=== PATIENT | female | born 1940 | race Caucasian/White ===

== ENCOUNTER 2017-05-19 20:07 | Emergency (ER) | payer MEDICARE, OTHER, SELFPAY ==
[2017-05-19 20:10] VITALS: BP 199/115; PULSE 98; RESP 20; TEMP 36.2; O2SAT 98; BMI 22.6
[2017-05-19 20:31] LABS: Bedside Glucose 149 mg/dL (70-110)
--- NOTE | 2017-05-19 20:56 | ED.VISSUMM ---
- ER Visit Summary Date of Service: 05/19/17 Chief Complaint: She believes she has a clot in her left index finger going up her left forearm History of Present Illness: The patient is a 76 F with history of dementia who was brought to the ER because she is insistent that she has a blood clot in her left index finger that is going up her forearm. She is uncertain how this occurred. She apparently lives alone. Daughter states she is within seconds away. Daughter states that she sets out her meds. Question the daughter regarding safety because she informed me that she was running around left the doors open etc. Patient is unreliable informant secondary to multi-infarct dementia. Physical Examination: Vital signs are remarkable for blood pressure of 119/115. Patient has no complaints. She is disoriented. This is normal. Daughter wishes no test to be done. She wishes for me to inform her mom she does not have a blood clot in her finger. Patient has a deep superficial burn to the left index finger. There is no evidence of infection. There is no lymphangitis. There is no epitrochlear or axillary lymphadenopathy. Axillary, median, radial and ulnar function intact. Test Results: None are indicated and none are wanted by daughter Emergency Department Course and Treatment: Wound dressing Treatment Plan: Appropriate home-going instructions Disposition: Discharged to home with daughter Impression: Partial thickness burn left index finger This note was generated with [employer] dictation software. It may contain incorrect words, spelling, and punctuation that were not noted in review of the chart prior to signing ED Disposition - Plan for ED Patient: Disposition: LEFT WITHOUT BEING SEEN Chief Complaint: Confusion Instructions: ED Burn Thermal D 1st 2nd Dressing Referrals: Sena Cheatham DO [Primary Care Provider] -
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
[2017-05-19 21:29] VITALS: BP 167/95; PULSE 73; RESP 16; O2SAT 99
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
== END 2017-05-19 21:27 | disposition left against medical advice (07) ==
PROVIDERS: Emergency Provider Emergency Medicine; Family Provider Family Medicine; PCP Family Medicine
DX: T23.022A Burn of unspecified degree of single left finger (nail) except thumb, initial encounter (principal); F03.90 Unspecified dementia, unspecified severity, without behavioral disturbance, psychotic disturbance, mood disturbance, and anxiety; I10 Essential (primary) hypertension; E11.9 Type 2 diabetes mellitus without complications; Z79.899 Other long term (current) drug therapy; Z79.82 Long term (current) use of aspirin
CPT/HCPCS: 82962; 99283; A4216

== ENCOUNTER 2017-07-16 23:50 | Emergency (ER) | payer MEDICARE, OTHER, SELFPAY ==
--- NOTE | 2017-07-16 23:50 | DT_ITS ---
This patient was seen during an EMR downtime July 09, 2017 - July 16, 2017. This patient may have a combination of paper and electronic documentation or all paper documentation. All documentation is viewable within the e-chart portion of [facility] for each patient visit.
[2017-07-16 23:52] VITALS: BP 205/103; PULSE 85; RESP 22; TEMP 36.7; O2SAT 95; BMI 23.6
[2017-07-16 23:56] VITALS: O2SAT 97
[2017-07-17 00:02] VITALS: BP 171/122; PULSE 83; RESP 19; O2SAT 98
--- NOTE | 2017-07-17 00:02 | EKG12_ITS ---
Test Reason : MENTAL STAT CHANGE Blood Pressure : / mmHG Vent. Rate : 076 BPM Atrial Rate : 076 BPM P-R Int : 186 ms QRS Dur : 084 ms QT Int : 384 ms P-R-T Axes : 072 035 076 degrees QTc Int : 432 ms Normal sinus rhythm Normal ECG Confirmed by COCO ARREGUIN, TAMAR ([id number]), scientific editor YESIKA TANG ([id number] on 07/18/2017 5:19:44 PM Referred By: DR ACUNA Confirmed By:TAMAR SEPULVEDA MD
--- NOTE | 2017-07-17 00:02 | RAD_ITS ---
STUDY: X-RAY CHEST REASON FOR EXAM: Female, 76 years old. Altered mental status and weakness. TECHNIQUE: PA and lateral views of the chest. COMPARISON: 02/19/2017 FINDINGS: Lungs are hyperexpanded. There is coarsened prominence of interstitial lung markings at bilateral lung bases, unchanged. No new confluent airspace opacity. No pleural effusion or pneumothorax. Normal size heart. Normal mediastinum and grazyna. Normal visualized pulmonary arteries. There is atherosclerotic calcification of the aortic arc. Kyphotic deformity of the thoracic spine. Multilevel degenerative change. Normal visualized ribs, clavicles, and shoulders. Postoperative change from endoluminal stent graft repair of an infrarenal abdominal aortic aneurysm. RAD/Chest PA and Lateral IMPRESSION: Chronic interstitial change with no evidence of acute cardiopulmonary disease. Electronically Signed: Shaan Chi MD at 2:33 EDT Tel , Service support ,
[2017-07-17 00:22] LABS: Absolute Neutrophil Count 5.3 X10^3/uL (2.0-7.7); Basophil# 0.03 X10^3/uL; Basophil% 0.4 % (0-1); Eosinophil# 0.03 X10^3/uL; Eosinophils% 0.4 % (0-5); Hematocrit 44.5 % (37-47); Lymphocyte % 23.9 % (19-41); Mean Corp Hgb Conc 33.7 g/gl (32-36); Mean Corpuscular Hgb 31.1 pg (27.0-32.0); Mean Corpuscular Volume 92.1 fL (81-99); Mean Platelet Vol. 9.9 fl (6.2-12.0); Monocyte% 8.8 % (0-10); Neutrophil # 5.27 X10^3/uL (2.7-7.7); Neutrophil % 66.4 % (47-70); Platelet Count 215 K/mm3 (150-450); RBC Distribution Width CV 12.1 % (11.6-14.6); Red Blood Count 4.83 M/mm3 (4.2-5.4); White Blood Count 7.9 K/mm3 (4.4-11.0)
[2017-07-17 00:23] LABS: POSITIVE COUNT NO; POSITIVE DIFFERENTIAL NO; POSITIVE MORPHOLOGY NO
[2017-07-17 00:36] LABS: Anion Gap 6 (5-15); BUN 14 mg/dL (7-18); BUN/Creat Ratio 16.4 RATIO (10-20); Calcium,Total 9.2 mg/dL (8.5-10.1); Chloride 96 mmol/L (98-107); Creatinine, Serum 0.85 mg/dL (0.55-1.02); EST Glomerular Filtration Rate 69 mL/min (>60); Est Glom Filt Rate - Afr Amer 83 mL/min (>60); Glucose 111 mg/dL (74-106); Sodium Level 132 mmol/L (136-145)
[2017-07-17 00:43] LABS: Bacteria 0 SEEN /hpf (None Seen); Mucous, Urine 0 SEEN /hpf (<or=2+)
[2017-07-17 00:49] LABS: Color, Urine Yellow (Yellow); Glucose, Dipstick Normal (Normal); Ketone-Dipstick 15 mg/dl (Negative); Leukocyte Esterase-Dipstick 25 /ul (Negative); Nitrite-Dipstick Negative (Negative); Occult Blood-Urine 10 /ul (Negative); Protein-Dipstick 15 mg/dl (Negative); Urine Bilirubin Dipstick Negative (Negative); Urine Clarity Clear (Clear); Urine Urobilinogen Normal (Normal)
--- NOTE | 2017-07-17 00:59 | NURSING ---
THIS NURSE SPOKE TO PATIENT'S DAUGHTER TO LET HER KNOW THAT HER MOTHER WAS BROUGHT IN BY [facility]. HER DAUGHTER SAID THAT HER MOTHER WAS BROUGHT IN FOR THIS TWO OTHER TIMES THIS YEAR AND ALL THE TESTS WERE NORMAL. SHE STATES IT HAS ALWAYS BEEN HER DEMENTIA. DAUGHTER IS TO BE CALLED WHEN PATIENT IS DISCHARGED. DR. ACUNA MADE AWARE AND IS GOING TO GET CASE MGMT INVOLVED.
[2017-07-17 01:00] LABS: Red Blood Cells-Urine 0-5 SEEN /hpf (0-5); Squamous Epithelial Cells - UA 0-5 SEEN /hpf (5-10); White Blood Cells 0-5 SEEN /hpf (0-5)
--- NOTE | 2017-07-17 01:19 | ED.VISSUMM ---
- ER Visit Summary Date of Service: 07/17/17 Chief Complaint: Neighbor called paramedics because Meche presented to her mobile home confused. History of Present Illness: The patient is a 76 F with history of dementia per old records. Daughter did call in after she was evaluated and states this is her normal mental status. Patient is not a good informant secondary dementia. She is oriented to person and place only. She has no complaints. Prior records are reviewed. She had a significant workup earlier this year and the cause of her confusion was felt to be secondary dementia as her daughter informed the nurse when she called in. Physical Examination: Vital signs are noted. She is a pleasant elderly woman in no distress. Head is atraumatic normocephalic. Pupils are equal round reactive. Extraocular muscles are intact. TMs are pearly white with landmarks noted. Nares patent with no drainage. Posterior pharynx without erythema or exudate. Uvula is midline. There is no dysphonia or dysphasia. Trachea is midline. There is no stridor with auscultation of the neck. Heart is regular without murmur, gallop or rub. S1 and S2 are normal. Lungs are clear to auscultation with good movement of air bilaterally. Abdomen is soft nontender with normal bowel sounds. There is no CVA tenderness noted. Lower extremity exam is remarkable for mild edema. Motor and sensory intact. DTRs are symmetric with no clonus or Babinski. Cranial 2 through 12 are intact. Test Results: Metabolic infectious workup was undertaken. Because she was slightly tachypneic chest x-ray and EKG were obtained since she is elderly to evaluate for pneumonia, CHF acute cardiac ischemia. EKG normal sinus rhythm rate of 76 and normal chest x-ray revealed no acute process. White count normal. Electronic panel revealed slight decrease in sodium and chloride of 132 and 96 respectively. UA is unremarkable. Emergency Department Course and Treatment: Evaluation for change in mental status. Metabolic infectious workup was undertaken. Treatment Plan: Contact daughter to take her home and consult to case management Disposition: Discharge to home with daughter Impression: Change in mental status secondary to dementia This note was generated with [employer] software. It may contain incorrect words, spelling, and punctuation that were not noted in review of the chart prior to signing ED Disposition - Plan for ED Patient: Disposition: Home or Assisted Living Chief Complaint: Mental Status Change Instructions: ED Dementia Caregiver Support Referrals: Sena Cheatham DO [Primary Care Provider] - As Needed
[2017-07-17 01:31] VITALS: BP 153/90; PULSE 69; RESP 20; O2SAT 98
--- NOTE | 2017-07-17 09:22 | CM.ED ---
Addendum entered by Racquel England 07/17/17 12:37: Call received from Kacie. Upon my returning her call, she states she is with her mother and will try to reach me again another time. Original Note: Referral received from Dr. Hurley, overnight. Call placed to patient's daughter, Kacie. I left a voicemail requesting she call me back and stating that I would like to discuss available resources for her mother. Awaiting return call.
--- NOTE | 2017-07-17 13:47 | CM.ED ---
DOUG spoke with Kacie, patient's daughter and power of cad draftsman. All of the following information was provided by Kacie. The patient has vascular dementia and lives alone. Her daughter, Kacie, has financial and medical power of cad draftsman. The patient does not remember coming to the ED last night and fluctuates from being very nice to very mean. She has no friends and has never been very social. She does have a sister who calls her every day. Kacie checks on her every few days and takes her out of the house once or twice a week. Kacie has taken the patient's car away. According to Kacie, the patient will not let anyone, including assistance programs, into her home. The patient does not use any DME or oxygen. She does smoke. Discussed assisted living as an option with patient's daughter. Kacie states she has toured [facility] and [facility]. She states she liked [facility], but has determined that they cannot afford this. Kacie states she is afraid to make her mom unhappy by telling her she has to move out of her house. Provided support and encouragement. Kacie states every decision is solely up to her, as her brother only visits every four months and is not involved. Kacie also states that her mom doesn't have a rosendo left at the end of the month. Kacie is the patient's financial POA and states her income is $1100 per month. She states her mom is on food stamps already and they have an interview for food stamps tomorrow. I discussed [facility] as a resource for Kacie. Contact information provided. I encouraged Kacie to complete a Medicaid application on behalf of the patient. Kacie asked the differences between [facility] and [facility] and states understanding after discussion. She states that, at the food stamps meeting tomorrow, she will inquire about a Medicaid application. Encouraged Kacie to contact me with any further questions or needed assistance.
== END 2017-07-17 01:52 | disposition home or self-care (01) ==
LOC: ED 07-17 01:28
PROVIDERS: Emergency Provider Emergency Medicine; Family Provider Family Medicine; PCP Family Medicine
DX: R41.82 Altered mental status, unspecified (principal); F03.90 Unspecified dementia, unspecified severity, without behavioral disturbance, psychotic disturbance, mood disturbance, and anxiety
CPT/HCPCS: 71046; 80048; 81001; 85025; 93005; 99285; J7030; P9612

== ENCOUNTER 2017-07-20 03:32 | Emergency (ER) | payer MEDICARE, OTHER, SELFPAY ==
[2017-07-20 03:32] VITALS: BP 181/108; PULSE 86; RESP 25; TEMP 37; O2SAT 85; BMI 22.4
--- NOTE | 2017-07-20 03:39 | ED.DCSUM_ITS ---
- ER Visit Summary Date of Service: 07/20/17 Chief Complaint: [] Shortness of breath and wheezing History of Present Illness: The patient is a 76 F [] complaining of wheezing tonight. She woke up with wheezing and difficulty breathing. No cough. She has not been sick earlier. This came on just tonight. She has a history of COPD by chart review. She denies any cold symptoms. She does still smoke. She did require BiPAP in 2014 when she was admitted for COPD exacerbation. No home treatment Physical Examination: [] Vital signs reviewed General: Well-nourished well-developed Head: Normocephalic atraumatic Eyes: Pupils equal round and reactive to light extraocular movements intact ENT: TMs clear no hemotympanum no trauma Neck: Nontender full range of motion Cardiovascular: Regular rate rhythm no murmurs normal S1-S2 Respiratory: To moderate respiratory distress. Diffuse wheezing throughout all lung madden. Able to speak in small sentences. No accessory muscle use Abdomen: Soft nontender nondistended normal bowel sounds no masses Back: Nontender no CVA tenderness Extremities: Nontender active range of motion ?4 extremities no trauma Skin: Normal color no trauma Neuro alert oriented cranial nerves II through XII intact normal strength sensation reflexes Test Results: [] Emergency Department Course and Treatment: [] Patient given stacked breathing treatments albuterol ?3 Atrovent ?1. Given prednisone. Placed on oxygen. Reevaluation after treatments the patient is asymptomatic resting comfortably. I feel this is more COPD with bronchospasm. I do not think she needs antibiotics. Will be discharged with prednisone and albuterol. Treatment Plan: [] Disposition: [] Impression: [] COPD with bronchospasm This note was generated with [employer] dictation software. It may contain incorrect words, spelling, and punctuation that were not noted in review of the chart prior to signing ED Disposition - Plan for ED Patient: Chief Complaint: Shortness of Breath Referrals: Sena Cheatham DO [Primary Care Provider] -
[2017-07-20 03:40] VITALS: RESP 20
[2017-07-20] MEDS: Albuterol 2.5 MG/3 ML VIAL.NEB. INHALATION ×2 (03:40)
[2017-07-20] MEDS: Ipratropium/Albuterol Sulfate 3 ML AMPUL.NEB INHALATION (03:40)
[2017-07-20] MEDS: predniSONE 20 MG Tablet 40 MG PO (04:31)
[2017-07-20 04:32] VITALS: BP 129/82; PULSE 88; RESP 18; O2SAT 99
--- NOTE | 2017-07-20 04:37 | ED.DEP ---
ED Disposition - Plan for ED Patient: Disposition: Home or Assisted Living Chief Complaint: Shortness of Breath Instructions: ED Bronchitis Asthmatic Prescriptions: Albuterol Inhaler [Ventolin Hfa] 2 - 4 puff INHALATION Q4H PRN PRN #1 inhaler PRN Reason: Wheezing Prednisone [Deltasone] 40 mg PO DAILY #10 tab Referrals: Sena Cheatham DO [Primary Care Provider] -
[2017-07-20 04:54] VITALS: BP 129/82; PULSE 88; RESP 16
== END 2017-07-20 04:54 | disposition home or self-care (01) ==
PROVIDERS: Emergency Provider Emergency Medicine; Family Provider Family Medicine; PCP Family Medicine
DX: J44.1 Chronic obstructive pulmonary disease with (acute) exacerbation (principal); J98.01 Acute bronchospasm; F17.200 Nicotine dependence, unspecified, uncomplicated; F03.90 Unspecified dementia, unspecified severity, without behavioral disturbance, psychotic disturbance, mood disturbance, and anxiety; Z86.73 Personal history of transient ischemic attack (TIA), and cerebral infarction without residual deficits
CPT/HCPCS: 94640; 99284

== ENCOUNTER 2017-12-14 01:49 | Observation (INO) | payer MEDICARE, OTHER, SELFPAY ==
[2017-12-14] VITALS (11 sets, daily range): BP systolic 119–155; BP diastolic 71–110; PULSE 63–85; RESP 16–22; TEMP 36.5–36.9; O2SAT 92–98; BMI 23.3; BMI 21.7
--- NOTE | 2017-12-14 02:21 | RAD_ITS ---
STUDY: X-RAY CHEST REASON FOR EXAM: Female, 77 years old. Cough TECHNIQUE: 1 view COMPARISON: July 17, 2017 FINDINGS: The heart is normal in size. The aorta is tortuous. There is no acute pneumonia or failure and no pleural effusions. Mild hyperinflation of the upper half of the lungs. Normal visualized thoracic spine. Normal visualized ribs, clavicles, and shoulders. There is no demonstrated abnormality of the visualized soft tissue structures of the upper abdomen. RAD/Chest 1 View (Portable) IMPRESSION: Mild COPD. No acute findings in the lungs. A tortuous aorta Electronically Signed: Edilberto Scott MD at 3:06 EST Tel , Service support ,
--- NOTE | 2017-12-14 02:21 | EKG12_ITS ---
Test Reason : Blood Pressure : / mmHG Vent. Rate : 074 BPM Atrial Rate : 074 BPM P-R Int : 192 ms QRS Dur : 074 ms QT Int : 392 ms P-R-T Axes : 079 039 083 degrees QTc Int : 435 ms Normal sinus rhythm Possible Left atrial enlargement Nonspecific ST abnormality Abnormal ECG Confirmed by YOLANDA BUCKNER ([id number]), senior editor YESIKA TANG ([id number] on 12/17/2017 2:18:24 PM Referred By: CR Confirmed By:YOLANDA BUCKNER
--- NOTE | 2017-12-14 02:28 | ED.DCSUM_ITS ---
- ER Visit Summary Date of Service: 12/14/17 Chief Complaint: Anxiety History of Present Illness: The patient is a 77 F with anxiety and palpitations. She was in bed she is almost asleep and she developed palpitations. She called the EMS. She is much improved although she still feels some anxiety. She has no chest pain fever chills no abdominal pain. No nausea or vomiting. She has no prior history of this although she has anxiety this was just somewhat worse. Physical Examination: Not appear in acute distress. Moist mucous membranes, no obvious facial deformity No C-spine tenderness supple neck. Regular rate and rhythm without any obvious murmurs Clear lungs bilaterally speaking in full sentences without any obvious respiratory distress Abdomen soft and nontender no guarding or rebound Moves all extremities without any difficulty or pain. Skin does not show any obvious rashes or lesions, no trauma. Alert oriented ?3 with no gross focal deficit She does appear somewhat anxious. Emergency Department Course and Treatment: Patient was monitored she does not have any arrhythmias on monitor, EKG showed nonspecific ST changes, troponin was intermediate, my worry is for a cardiac event she either had an arrhythmia or coronary occlusion, she will need admission and further cardiac workup. Disposition: Admit to the hospital in stable condition Impression: Palpitations Elevated troponin This note was generated with [employer] dictation software. It may contain incorrect words, spelling, and punctuation that were not noted in review of the chart prior to signing ED Disposition - Plan for ED Patient: Chief Complaint: Anxiety Referrals: Sena Cheatham DO [Primary Care Provider] -
[2017-12-14 02:49] LABS: Absolute Lymphocyte Count 1.78 X10^3/ul (0.83-4.51); Absolute Neutrophil Count 3.5 X10^3/uL (2.0-7.7); Basophil# 0.05 X10^3/uL; Basophil% 0.8 % (0-1); Eosinophil# 0.14 X10^3/uL; Eosinophils% 2.3 % (0-5); Hematocrit 45.4 % (37-47); Hemoglobin 15.3 g/dl (12.0-15.0); Lymphocyte # 1.78 X10^3/ul (4.0); Lymphocyte % 28.8 % (19-41); Mean Corp Hgb Conc 33.7 g/gl (32-36); Mean Corpuscular Hgb 31.2 pg (27.0-32.0); Mean Corpuscular Volume 92.5 fL (81-99); Mean Platelet Vol. 10.3 fl (6.2-12.0); Monocyte# 0.71 X10^3/uL; Monocyte% 11.5 % (0-10); Neutrophil # 3.49 X10^3/uL (2.7-7.7); Neutrophil % 56.4 % (47-70); Platelet Count 227 K/mm3 (150-450); RBC Distribution Width CV 12.3 % (11.6-14.6); RBC Distribution Width SD 40.9 fl (35.1-43.9); Red Blood Count 4.91 M/mm3 (4.2-5.4); White Blood Count 6.2 K/mm3 (4.4-11.0)
[2017-12-14 02:51] LABS: POSITIVE COUNT NO; POSITIVE DIFFERENTIAL NO; POSITIVE MORPHOLOGY NO
[2017-12-14 03:37] LABS: Anion Gap 8 (5-15); BUN 8 mg/dL (7-18); BUN/Creat Ratio 8.5 RATIO (10-20); Chloride 102 mmol/L (98-107); Creatinine, Serum 0.94 mg/dL (0.55-1.02); EST Glomerular Filtration Rate 61 mL/min (>60); Est Glom Filt Rate - Afr Amer 74 mL/min (>60); Estimated Creatinine Clearance 46.92 ml/min; Glucose 98 mg/dL (74-106); Potassium 3.7 mmol/L (3.5-5.1); Sodium Level 140 mmol/L (136-145)
--- NOTE | 2017-12-14 04:55 | HP.PCM_ITS ---
Problem List (1) Palpitation Status: Acute (2) Acute respiratory failure with hypoxia Status: Acute (3) CVA (cerebral vascular accident) Status: Chronic (4) Change in mental status Status: Chronic Qualifiers: Altered mental status type: disorientation Qualified Code(s): R41.0 - Disorientation, unspecified (5) Community acquired pneumonia Status: Resolved (6) Encephalopathy Status: Resolved (7) UTI (urinary tract infection) Status: Resolved (8) AAA (abdominal aortic aneurysm) Status: Chronic (9) Alzheimer's disease Status: Chronic (10) Aneurysm of infrarenal abdominal aorta Status: Chronic (11) Anxiety Status: Chronic (12) Benign essential hypertension Status: Chronic (13) Benign essential hypertension Status: Chronic (14) Benign essential hypertension Status: Chronic (15) CAD (coronary artery disease) Status: Chronic Comment: 3 stents (16) Coronary artery disease Status: Chronic (17) Decreased appetite Status: Chronic (18) Depression Status: Chronic (19) Gastroesophageal reflux disease Status: Chronic (20) Gastroesophageal reflux disease Status: Chronic (21) Gastroesophageal reflux disease Status: Chronic (22) HTN (hypertension) Status: Chronic (23) History of MA (myocardial infarction) Status: Chronic (24) Hyperlipidemia Status: Chronic (25) Insomnia Status: Chronic (26) Obesity Status: Chronic (27) Obesity Status: Chronic (28) Obesity Status: Chronic (29) Osteoarthritis Status: Chronic (30) Osteoarthritis Status: Chronic (31) Osteoarthritis Status: Chronic (32) Type 2 diabetes mellitus Status: Chronic (33) Type 2 diabetes mellitus Status: Chronic (34) Type 2 diabetes mellitus Status: Chronic History of Present Illness Date of Admission: 12/14/17 Chief Complaint: Elevated trop The patient is a 77 year old F with H/o CAD S/P 3 stents, Type 2 DM woke up today with anxiety and palpitation as mentioned to the ER physician. She also told the ER physician that she felt like she is going to . She was brought in by EMS. When I asked the patient she does not remember and just said she had some weird feeling but could not explain further. She denies chest pain. No shortness of breath. The patient does not have significant leg edema. In ED, vitals are stable. Basic labs remarkable was troponin elevation 0.176. EKG shows normal sinus rhythm with nonspecific ST-T abnormality at 74 bpm. Patient is further admitted. [] Past Medical History Past Medical History (Chronic Problems): Chronic Problems (This Medical Record has been edited. Action required.) Benign essential hypertension (Chronic) Type 2 diabetes mellitus (Chronic) Gastroesophageal reflux disease (Chronic) Obesity (Chronic) Osteoarthritis (Chronic) Benign essential hypertension (Chronic) Type 2 diabetes mellitus (Chronic) Gastroesophageal reflux disease (Chronic) Obesity (Chronic) Osteoarthritis (Chronic) Benign essential hypertension (Chronic) Type 2 diabetes mellitus (Chronic) Gastroesophageal reflux disease (Chronic) Obesity (Chronic) Osteoarthritis (Chronic) Insomnia (Chronic) Decreased appetite (Chronic) Depression (Chronic) AAA (abdominal aortic aneurysm) (Chronic) Coronary artery disease (Chronic) Alzheimer's disease (Chronic) Hyperlipidemia (Chronic) CAD (coronary artery disease) (Chronic) 3 stents History of MA (myocardial infarction) (Chronic) Aneurysm of infrarenal abdominal aorta (Chronic) HTN (hypertension) (Chronic) Anxiety (Chronic) Change in mental status (Chronic) CVA (cerebral vascular accident) (Chronic) Allergies codeine Allergy (Unverified 12/14/17 01:55) Rash NSAIDS (Non-Steroidal Anti-Inflamma Allergy (Unverified 12/14/17 01:55) Rash Penicillins Allergy (Unverified 12/14/17 01:55) Rash solifenacin [From Vesicare] Allergy (Unverified 12/14/17 01:55) Unknown Sulfa (Sulfonamide Antibiotics) Allergy (Verified 12/14/17 01:55) Unknown Home Medications: Ambulatory Orders Medication Instructions Recorded Donepezil HCl [Aricept] 10 mg PO QHS 02/19/17 Mirtazapine 7.5 mg PO QHS 02/19/17 Pravastatin Sodium [Pravachol] 10 mg PO QHS 02/19/17 Aspirin 325 mg PO DAILY@0800 02/22/17 Cholecalciferol (VIT D3) [Vitamin 2,000 unit PO DAILYCM 02/22/17 D3] Amlodipine [Norvasc] 10 mg PO DAILY #30 tab 02/28/17 Valsartan [Diovan] 160 mg PO BID #60 tab 02/28/17 Amlodipine [Norvasc] 2.5 mg PO DAILY 05/19/17 Aspirin 81 mg PO DAILY 05/19/17 Cholecalciferol (Vitamin D3) 1,000 unit PO DAILY 05/19/17 [Vitamin D3] Donepezil HCl [Aricept] 10 mg PO DAILY 05/19/17 Lorazepam [Ativan] 0.5 mg PO PRN PRN 05/19/17 Mirtazapine [Remeron] 15 mg PO QHS 05/19/17 Pravastatin [Pravachol] 10 mg PO QHS 05/19/17 Valsartan 160 mg PO DAILY 05/19/17 Albuterol Inhaler [Ventolin Hfa] 2 - 4 puff INHALATION Q4H PRN PRN 07/20/17 #1 inhaler Prednisone [Deltasone] 40 mg PO DAILY #10 tab 07/20/17 Surgical History: angioplasty - Cardiac stent x 3., - - Abdominal aortic aneurysm repair. Psychiatric History: Anxiety, Depression DIRECTOR OF SAFETY History: No pertinent DIRECTOR OF SAFETY history Smoking Status: Current every day smoker - *Family History Maternal History Items: No pertinent history Paternal History Items: Cancer - Her father of lung cancer Review of Systems Constitutional: Denies: Chills, Fever, Weight Change HEENT: Denies: Head Aches, Sinus Congestion, Sinus Drainage Cardiovascular: Reports: Palpitations. Denies: Chest Pain Respiratory: Denies: Cough, Shortness of breath at rest, Sputum production Gastrointestinal: Denies: Abdominal Pain, Nausea, Vomiting Genitourinary: Denies: Dysuria Musculoskeletal: Denies: Joint Pain, Joint Tenderness Skin: Denies: Rash, Wounds Neurological: Denies: Numbness, Tingling, Focal weakness Psychiatric: Reports: Anxiety, Depression. Denies: Homicidal Ideations, Suicidal Ideations Hematologic/ Lymphatic: Denies: Easy Bruising, Easy Bleeding Unable to obtain accurate/complete ROS d/t: Patient does not remember well; probably advanced dementia VTE Information - Inpt Only VTE Present on Admission: No VTE Mechan Device Prophylaxis: None VTE Pharm Prophylaxis ordered?: Yes Patient Problems: Active and Suspected Problems (This Medical Record has been edited. Action required.) Palpitation (Acute) - Physical Exam General: Oriented x3, Cooperative, Lethargic, - - Forgetfulness. Dementia HEENT: Atraumatic, PERRLA, EOMI, Normocephalic Neck: Supple, No JVD, Negative Carotid Bruits Lungs: Clear to auscultation, No rhonchi, No wheeze, No rales, Diminished - Air entry diminished in bilateral lung bases Cardiovascular: Regular rate, Regular Rhythm, Normal S1, Normal S2, No murmurs Abdomen: Bowel Sounds Present, Soft, Non Tender, Non-Distended Extremities: Capillary Refill Less than 3 Seconds, Edema - Mild pedal edema, chronic in nature Skin: No rashes, No breakdown Musculoskeletal: No Tenderness to Palpation of Joints or Extremities, Arthritic Changes, Muscle Wasting Neurological: Cranial nerves II-XII grossly intact, Deep Tendon Reflexes 2+/4 and Symmetrical, Neuro grossly intact Vital Signs Temp Pulse Resp BP Pulse Ox 98.1 F 70 18 138/88 H 96 12/14/17 01:50 12/14/17 04:29 12/14/17 04:29 12/14/17 04:29 12/14/17 04:29 Oxygen Flow Rate (L/min) 2 Oxygen Delivery Method Nasal Cannula Weight: 145 lb Body Mass Index (BMI) 23.3 Finger Stick Blood Glucose 114 Laboratory Tests Past 24 Hrs 12/14/17 12/14/17 02:42 02:42 WBC 6.2 RBC 4.91 Hgb 15.3 H Hct 45.4 MCV 92.5 MCH 31.2 MCHC 33.7 RDW 12.3 RDW Differential 40.9 Plt Count 227 MPV 10.3 Immature Gran % (Auto) 0.200 Neut % (Auto) 56.4 Lymph % (Auto) 28.8 [place] % (Auto) 11.5 H Eos % (Auto) 2.3 Baso % (Auto) 0.8 Absolute Neuts (auto) 3.5 Absolute Lymphs (auto) 1.78 Total Counted Not Reportable Sodium 140 Potassium 3.7 Chloride 102 Carbon Dioxide 30.0 Anion Gap 8 BUN 8 Creatinine 0.94 Estim Creat Clear Calc 46.92 Est GFR (MDRD) Af Amer 74 Est GFR (MDRD) Non-Af 61 BUN/Creatinine Ratio 8.5 L Glucose 98 Calcium 9.0 Troponin I 0.176 H Assessment/Plan All Active Problems (This Medical Record has been edited. Action required.) Palpitation (Acute) Encephalopathy (Resolved) Acute respiratory failure with hypoxia (Acute) Community acquired pneumonia (Resolved) UTI (urinary tract infection) (Resolved) The patient is a 77 year old F with H/o CAD S/P 3 stents, Type 2 DM woke up today with anxiety and palpitation as mentioned to the ER physician. She also told the ER physician that she felt like she is going to . She was brought in by EMS. When I asked the patient she does not remember and just said she had some weird feeling but could not explain further. She denies chest pain. No shortness of breath. The patient does not have significant leg edema. Further history is unobtainable because of advanced dementia In ED, vitals are stable. Basic labs remarkable was troponin elevation 0.176. EKG shows normal sinus rhythm with nonspecific ST-T abnormality at 74 bpm. Patient is further admitted. 1. Elevated troponin and possible palpitation, exact etiology unclear: Patient is being admitted to PCU for cardiac monitoring. Cycle cardiac enzymes. If troponins trend support and will need further cardiology evaluation. If it remains plateau, consider stress echo. Continue aspirin, nitro sublingual if chest pain, valsartan and other cardiac medications. 2. Coronary artery disease status post stents: 3. Advanced Alzheimer's dementia: Patient is on Aricept, Remeron 4. Diabetes mellitus type 2: Accu-Chek before meals and at bedtime and cover with NovoLog sliding scale. 5. Hypertension, dyslipidemia, CVA in the past, anxiety 6. Other chronic comorbidities include GERD, chronic degenerative joint disease, anxiety and depression 7. COPD: Patient does not have wheezing and does not seem to been acute exacerbation. Chest x-ray does not show acute finding but chronic changes of COPD. Home medication reconciliation done. DVT prophylaxis: On heparin 5000 subcutaneous twice daily. Code Visit OBSV E&M: 57263 Initial observation care L3
[2017-12-14 06:18] LABS: BNP,B-Type NATRIURETIC PEPTIDE 46.6 pg/mL (0-100); Cholesterol 184 mg/dL (200); High Density Lipoprotein 77 mg/dL; Thyroid Stim Hormone (TSH) 2.21 uIU/mL (0.358-3.74); Triglycerides 83 mg/dL; Very Low Density Lipoprotein 17 mg/dL (5-40)
--- NOTE | 2017-12-14 06:37 | EKG12_ITS ---
Test Reason : AM Blood Pressure : / mmHG Vent. Rate : 063 BPM Atrial Rate : 063 BPM P-R Int : 198 ms QRS Dur : 088 ms QT Int : 420 ms P-R-T Axes : 088 074 097 degrees QTc Int : 429 ms Normal sinus rhythm Normal ECG When compared with ECG of 17-JUL-2017 00:17, No significant change was found Confirmed by YOLANDA BUCKNER ([id number]), graphics editor YESIKA TANG ([id number] on 12/17/2017 2:59:48 PM Referred By: ABRIL Confirmed By:YOLANDA BUCKNER
[2017-12-14 07:11] LABS: Bedside Glucose 105 mg/dL (70-110)
[2017-12-14] MEDS: Aspirin E.C. 81 MG Tablet PO (08:08)
--- NOTE | 2017-12-14 08:14 | NURSING ---
Spoke with [facility] in stress. Notified that patient does not know home medications. [facility] pharmacy called but not open yet. Patient has not had any home medications. Was given 81mg ASA.
[2017-12-14 08:40] LABS: Prothrombin Time (Protime)PT. 13.1 SECONDS (11.7-14.9)
[2017-12-14 08:41] LABS: Partial Thromboplast Time 33.4 Seconds (24.1-36.2)
--- NOTE | 2017-12-14 11:00 | STE_ITS ---
Reason For Study: Elevated Troponin, CAD Stress Results Protocol: Dobutamine Stress Echo Maximum Predicted HR: 143 bpm Target HR: 122 bpm % Maximum Predicted HR: 85 % DurationHeart Rate Stage (mm:ss) (bpm) BP Comment Baseline 62 150/98No Chest Pain DSE 10 MCG 3:00 63 158/97No Chest Pain DSE 20 MCG 3:00 87 162/99No Chest Pain DSE 30 MCG 3:00 110 125/77No Chest Pain DSE 40 MCG 3:19 122 108/64No Chest Pain Recovery 98 111/68No Chest Pain Stress Duration: 12:19 mm:ss Maximum Stress HR: 122 bpm METS: 1 Baseline Echocardiogram Findings The estimated ejection fraction is 65 %. Stress Echo Wall motion Data Resting WM Intermediate WM Stress WM Resting Wall Motion No regional wall motion abnormalities noted. EKG Data The baseline ECG displays normal sinus rhythm. The patient was titrated from 10 mcg to a maximum of 40 mcg of dobutamine during the stress. The maximum heart rate attained was 122 beats per minute. This was 85% of maximum predicted heart rate. During dobutamine infusion, there were no ST or T wave changes noted to suggest ischemia. No clinical angina was noted. No arrhythmias noted. Interpretation Summary The estimated ejection fraction is 65 %. Normal, adequate, dobutamine echocardiogram. Negative for ischemia by EKG and echocardiographic criteria. No anginal symptoms noted. No arrhythmias noted. Test terminated due to attainment of target heart rate. Appropriate blood pressure response to dobutamine. Final LVEF is 75%. No complications. Ordering Physician: Vini Greenberg Referring Physician: Bari Baldwin Performed By: Hillary Rubio, SARAH, RVT
--- NOTE | 2017-12-14 11:17 | CASEMGMT ---
SW spoke with patient and daughter, introduced self and role at [facility]. Patient has Dementia and lives alone. She is no longer safe at home alone. Patient and her daughter feel she needs placement. SW explained patient is observation status and Medicare will not pay for penitentiary stay. Patient does not have finances to private pay. SW explained we can do a Medicaid application and she could go to a facility on pending Medicaid. SW did explain it could be difficult to find a place for patient as facilities are reluctant to take patient's on pending Medicaid. Their first 2 choices are [facility] and [facility]. SW explained [facility] often does not take pending Medicaid, but SW can try and last SW knew [facility] was full, but again SW will try. SW gave patient's daughter a Medicaid application and she will complete it now. SW to work on placement. Sarah VALLE MSW
[2017-12-14 11:25] LABS: Bedside Glucose 107 mg/dL (70-110)
--- NOTE | 2017-12-14 13:36 | PCM.PROGNOTE ---
Patient Problems: Active and Suspected Problems (This Medical Record has been edited. Action required.) Palpitation (Acute) Subjective: Patient seen and examined. Unable to state why she is in hospital or how she got to the hospital. Denies current symptoms or complaints. Patient wishes to go to skilled facility at discharge. - Physical Exam General: Alert, Cooperative, Disoriented HEENT: Atraumatic, PERRLA, EOMI, Normocephalic Neck: Supple, No JVD, Negative Carotid Bruits Lungs: Clear to auscultation, Diminished Cardiovascular: Regular rate, Regular Rhythm, Normal S1, Normal S2, No murmurs Abdomen: Bowel Sounds Present, Soft, Non Tender, Non-Distended Extremities: No clubbing, No cyanosis, No edema, Capillary Refill Less than 3 Seconds Skin: No rashes, No breakdown Musculoskeletal: No Tenderness to Palpation of Joints or Extremities, Muscle Wasting Neurological: Cranial nerves II-XII grossly intact, Neuro grossly intact Psych/Mental Status: Anxious Vital Signs Temp Pulse Resp BP Pulse Ox 98.5 F 78 16 155/92 H 92 12/14/17 08:01 12/14/17 10:43 12/14/17 08:01 12/14/17 08:01 12/14/17 08:01 Oxygen Flow Rate (L/min) 2 Oxygen Delivery Method Nasal Cannula Weight: 134 lb 4.184 oz Body Mass Index (BMI) 21.7 Finger Stick Blood Glucose 114 Intake and Output for Last 24 Hours 12/12/17 12/13/17 12/14/17 23:59 23:59 23:59 Intake Total 360 / 360 Balance 360 / 360 Laboratory Tests Past 24 Hrs 12/14/17 12/14/17 12/14/17 02:42 02:42 05:40 WBC 6.2 RBC 4.91 Hgb 15.3 H Hct 45.4 MCV 92.5 MCH 31.2 MCHC 33.7 RDW 12.3 RDW Differential 40.9 Plt Count 227 MPV 10.3 Immature Gran % (Auto) 0.200 Neut % (Auto) 56.4 Lymph % (Auto) 28.8 [place] % (Auto) 11.5 H Eos % (Auto) 2.3 Baso % (Auto) 0.8 Absolute Neuts (auto) 3.5 Absolute Lymphs (auto) 1.78 Total Counted Not Reportable PT INR APTT Sodium 140 Potassium 3.7 Chloride 102 Carbon Dioxide 30.0 Anion Gap 8 BUN 8 Creatinine 0.94 Estim Creat Clear Calc 46.92 Est GFR (MDRD) Af Amer 74 Est GFR (MDRD) Non-Af 61 BUN/Creatinine Ratio 8.5 L Glucose 98 Calcium 9.0 Troponin I 0.176 H 0.177 H B-Natriuretic Peptide Triglycerides 83 Cholesterol 184 LDL Cholesterol 90 VLDL Cholesterol 17 HDL Cholesterol 77 TSH 2.21 12/14/17 12/14/17 12/14/17 05:40 08:08 08:08 WBC RBC Hgb Hct MCV MCH MCHC RDW RDW Differential Plt Count MPV Immature Gran % (Auto) Neut % (Auto) Lymph % (Auto) [place] % (Auto) Eos % (Auto) Baso % (Auto) Absolute Neuts (auto) Absolute Lymphs (auto) Total Counted PT 13.1 INR 1.0 APTT 33.4 Sodium Potassium Chloride Carbon Dioxide Anion Gap BUN Creatinine Estim Creat Clear Calc Est GFR (MDRD) Af Amer Est GFR (MDRD) Non-Af BUN/Creatinine Ratio Glucose Calcium Troponin I 0.168 H B-Natriuretic Peptide 46.6 Triglycerides Cholesterol LDL Cholesterol VLDL Cholesterol HDL Cholesterol TSH POC Glucose 12/14/17 12/14/17 11:19 06:09 POC Glucose 107 105 Medical Necessity - Tobacco Use Smoking Status: Current every day smoker Assessment/Plan All Active Problems (This Medical Record has been edited. Action required.) Palpitation (Acute) Encephalopathy (Resolved) Acute respiratory failure with hypoxia (Acute) Community acquired pneumonia (Resolved) UTI (urinary tract infection) (Resolved) 1. Elevated troponin-ACS rule out. Unclear etiology although appears chronic for patient. Troponins have been 0.1 or greater during prior admissions. Patient underwent a stress echo which showed an EF of 65%, negative for ischemia. 2. Advanced Alzheimer's dementia-no longer safe living at home alone. Daughter wishes for placement. Tonny Irizarry at [facility]. PT/OT. Continue Aricept. 3. Coronary artery disease status post stents-continue statin. Not on aspirin or beta-asher. 4. Hypertension-stable, continue home amlodipine and losartan regimen. 5. Hyperlipidemia-continue statin. 6. Anxiety/depression-continue home lorazepam regimen. 7. Chronic degenerative joint disease 8. Probable COPD-no acute exacerbation. Chest x-ray without acute findings on admission. Patient has not had pulmonary function testing although COPD evident by imaging. Albuterol aerosol as needed. 9. Chronic kidney disease stage II-stable. DVT prophylaxis-heparin subcu. This patient was seen by MARISA Duran under the supervision of Dr. Murrell.
--- NOTE | 2017-12-14 14:46 | CASEMGMT ---
Patient's daughter gave SW the Medicaid application. SW faxed this to [employer] [facility] [employer]. SW left a message for the director rehabilitation program at [facility]. CLAUDIA spoke with Sade at [facility] and faxed information. Completed PASRR on HENS as well as level of care. SW received a call from Sade at [facility] and they can accept patient. She said it will be a semi-private room and she will have to bring in her own television. CLAUDIA told her SW will let patient's daughter know. CLAUDAI then received a call from Cici at [facility] and patient's pending number is: [phone]. CLAUDIA faxed PASRR and level of care request to [facility]. CLAUDIA then called [facility] and spoke with Elisha letting her know SW faxed this request. She took SW's number in case they did not receive it. Await level of care from [facility]. CLAUDIA let patient and her daughter know that patient was accepted at [facility], it is a semi-private room, and they will need to take her own television.They were okay with this plan. Patient's daughter said someone should be able to transport her when she is ready. CLAUDIA told them it could possibly be today. Plan: [facility] pending receipt of level of care from [facility] under intermediate level of care on a PASRR. Sarah VALLE MSW
--- NOTE | 2017-12-14 14:51 | PCM.EXTCARCO ---
- Diet 12/14/17 05:31 Diet: Cardiac: Regular Diet - Routine Orders/Code Status Enema Type: Fleetz Enema Frequency: Daily PRN Suppository Type: Dulcolax 10mg Suppository Frequency: Daily PRN O2 Liters per Minute: 2 O2 Frequency: PRN Keep PO Greater than or Equal to (%): 90 Routine Lab Work: CBC, BMP, - - Once weekly Code Status: Full Code - Wound(s) BLE ARMS Wound Type: Abrasion - Suggestions for Active Care Change Position every (hours): 2 Times a day to sit in chair: 3 - Therapies Physical Therapy: Eval and Treat Occupational Therapy: Eval and Treat - Problem/Diagnosis (1) Benign essential hypertension Status: Chronic Current Visit: No (2) Gastroesophageal reflux disease Status: Chronic Current Visit: No (3) Coronary artery disease Status: Chronic Current Visit: No (4) Alzheimer's disease Status: Chronic Current Visit: No (5) Hyperlipidemia Status: Chronic Current Visit: No (6) Anxiety Status: Chronic Current Visit: No (7) Elevated troponin Status: Acute Comment: ACS ruled out Current Visit: Yes - Allergies/Procedures Done in Hospital Allergies/Adverse Reactions: Allergies codeine Allergy (Unverified 12/14/17 01:55) Rash NSAIDS (Non-Steroidal Anti-Inflamma Allergy (Unverified 12/14/17 01:55) Rash Penicillins Allergy (Unverified 12/14/17 01:55) Rash solifenacin [From Vesicare] Allergy (Unverified 12/14/17 01:55) Unknown Sulfa (Sulfonamide Antibiotics) Allergy (Verified 12/14/17 01:55) Unknown Procedures: - - Stress echo - Type of Care/Length of Stay Estimated LOS: More Than 30 Days Type of Care Needed: Skilled Rehab Potential: Fair Prognosis: Fair - Additional Orders/Day of Discharge H&P will serve as current which was dated: 12/14/17 Day of Discharge: 12/14/17 - Dietary and Speech Recommendations Dietitian Recommendations/Changes: Recommend liberalizing diet to regular d/t hx of Alzheimer's. Recommend ONS if PO diet <50% tray consumed. - Follow Up Care Primary Care Physician: Sena Cheatham DO [Primary Care Provider] - Please follow up with your Primary Care Physician in: 1 Week
--- NOTE | 2017-12-14 14:56 | PCM.DC.SUM ---
<Estelita Martinez - Last Filed: 12/14/17 14:59> Discharge Date and Diagnosis Date of Admission: 12/14/17 Date of Discharge: 12/14/17 - Primary Discharge Diagnosis Active and Suspected Problems (This Medical Record has been edited. Action required.) 1. Elevated troponin- ACS ruled out 2. Functional decline due to advanced Alzheimer's dementia-discharge to SNF 3. CAD status post prior stents 4. Hypertension 5. Hyperlipidemia 6. Anxiety/depression 7. Chronic degenerative joint disease 8. Probable COPD 9. Chronic kidney disease stage II - Secondary Discharge Diagnosis Chronic Problems (This Medical Record has been edited. Action required.) Benign essential hypertension (Chronic) Type 2 diabetes mellitus (Chronic) Gastroesophageal reflux disease (Chronic) Obesity (Chronic) Osteoarthritis (Chronic) Benign essential hypertension (Chronic) Type 2 diabetes mellitus (Chronic) Gastroesophageal reflux disease (Chronic) Obesity (Chronic) Osteoarthritis (Chronic) Benign essential hypertension (Chronic) Type 2 diabetes mellitus (Chronic) Gastroesophageal reflux disease (Chronic) Obesity (Chronic) Osteoarthritis (Chronic) Insomnia (Chronic) Decreased appetite (Chronic) Depression (Chronic) AAA (abdominal aortic aneurysm) (Chronic) Coronary artery disease (Chronic) Alzheimer's disease (Chronic) Hyperlipidemia (Chronic) CAD (coronary artery disease) (Chronic) 3 stents History of OH (myocardial infarction) (Chronic) Aneurysm of infrarenal abdominal aorta (Chronic) HTN (hypertension) (Chronic) Anxiety (Chronic) Change in mental status (Chronic) CVA (cerebral vascular accident) (Chronic) Hospital Course and Treatment Imaging Results: Diagnostic Data Chest X-Ray 12/14/17 02:21 IMPRESSION: Mild COPD. No acute findings in the lungs. A tortuous aorta Electronically Signed: Edilberto Scott MD at 3:06 EST Tel , Service support , Operations: None Procedures: - - Stress echo Summary of Care Provided: The patient is a 77 year old F admitted 12/14/2017 due to anxiety. She was found to have elevated troponin during lab work on admission. 1. Elevated troponin-ACS rule out. Unclear etiology although appears chronic for patient. Troponins have been 0.1 or greater during prior admissions. Patient underwent a stress echo which showed an EF of 65%, negative for ischemia. 2. Functional decline due to advanced Alzheimer's dementia-no longer safe living at home alone. [place] at ID. PT/OT. Continue Aricept. 3. Coronary artery disease status post stents-continue statin. Not on aspirin or beta-asher. 4. Hypertension-stable, continue home amlodipine and losartan regimen. 5. Hyperlipidemia-continue statin. 6. Anxiety/depression-continue home lorazepam regimen. 7. Chronic degenerative joint disease 8. Probable COPD-no acute exacerbation. Chest x-ray without acute findings on admission. Patient has not had pulmonary function testing although COPD evident by imaging. 9. Chronic kidney disease stage II-stable. General: Alert, Cooperative, Disoriented HEENT: Atraumatic, PERRLA, EOMI, Normocephalic Neck: Supple, No JVD, Negative Carotid Bruits Lungs: Clear to auscultation, Diminished Cardiovascular: Regular rate, Regular Rhythm, Normal S1, Normal S2, No murmurs Abdomen: Bowel Sounds Present, Soft, Non Tender, Non-Distended Extremities: No clubbing, No cyanosis, No edema, Capillary Refill Less than 3 Seconds Skin: No rashes, No breakdown Musculoskeletal: No Tenderness to Palpation of Joints or Extremities, Muscle Wasting Neurological: Cranial nerves II-XII grossly intact, Neuro grossly intact Psych/Mental Status: Anxious Patient seen exam prior to discharge. Physical assessment as noted above. Patient stable for discharge to SNF with follow-up with primary care physician in 1 week. This patient was seen by MARISA Duran under the supervision of Dr. Murrell. - Physical Exam Vital Signs Temp Pulse Resp BP Pulse Ox 97.7 F L 71 16 145/96 H 94 12/14/17 14:00 12/14/17 14:00 12/14/17 14:00 12/14/17 14:00 12/14/17 14:00 Oxygen Flow Rate (L/min) 2 Oxygen Delivery Method Room Air Weight: 134 lb 4.184 oz Body Mass Index (BMI) 21.7 Finger Stick Blood Glucose 114 Intake and Output for Last 24 Hours 12/12/17 12/13/17 12/14/17 23:59 23:59 23:59 Intake Total 360 / 360 Balance 360 / 360 Laboratory Tests Past 24 Hrs 12/14/17 12/14/17 12/14/17 02:42 02:42 05:40 WBC 6.2 RBC 4.91 Hgb 15.3 H Hct 45.4 MCV 92.5 MCH 31.2 MCHC 33.7 RDW 12.3 RDW Differential 40.9 Plt Count 227 MPV 10.3 Immature Gran % (Auto) 0.200 Neut % (Auto) 56.4 Lymph % (Auto) 28.8 [place] % (Auto) 11.5 H Eos % (Auto) 2.3 Baso % (Auto) 0.8 Absolute Neuts (auto) 3.5 Absolute Lymphs (auto) 1.78 Total Counted Not Reportable PT INR APTT Sodium 140 Potassium 3.7 Chloride 102 Carbon Dioxide 30.0 Anion Gap 8 BUN 8 Creatinine 0.94 Estim Creat Clear Calc 46.92 Est GFR (MDRD) Af Amer 74 Est GFR (MDRD) Non-Af 61 BUN/Creatinine Ratio 8.5 L Glucose 98 Calcium 9.0 Troponin I 0.176 H 0.177 H B-Natriuretic Peptide Triglycerides 83 Cholesterol 184 LDL Cholesterol 90 VLDL Cholesterol 17 HDL Cholesterol 77 TSH 2.21 12/14/17 12/14/17 12/14/17 05:40 08:08 08:08 WBC RBC Hgb Hct MCV MCH MCHC RDW RDW Differential Plt Count MPV Immature Gran % (Auto) Neut % (Auto) Lymph % (Auto) [place] % (Auto) Eos % (Auto) Baso % (Auto) Absolute Neuts (auto) Absolute Lymphs (auto) Total Counted PT 13.1 INR 1.0 APTT 33.4 Sodium Potassium Chloride Carbon Dioxide Anion Gap BUN Creatinine Estim Creat Clear Calc Est GFR (MDRD) Af Amer Est GFR (MDRD) Non-Af BUN/Creatinine Ratio Glucose Calcium Troponin I 0.168 H B-Natriuretic Peptide 46.6 Triglycerides Cholesterol LDL Cholesterol VLDL Cholesterol HDL Cholesterol TSH POC Glucose 12/14/17 12/14/17 11:19 06:09 POC Glucose 107 105 Home Medications: Medications to take at Discharge Pravastatin Sodium [Pravachol] 10 mg PO QHS 02/19/17 Amlodipine [Norvasc] 2.5 mg PO DAILY 05/19/17 Donepezil HCl [Aricept] 10 mg PO DAILY 05/19/17 Lorazepam [Ativan] 0.5 mg PO DAILY #3 tab 12/14/17 Losartan Potassium 100 mg PO DAILY 12/14/17 Mirtazapine [Remeron] 15 mg PO QHS #2 tablet 12/14/17 Following Prescrptions Were Given to Patient: Lorazepam [Ativan] 0.5 mg PO DAILY #3 tab Mirtazapine [Remeron] 15 mg PO QHS #2 tablet Primary Care Physician: Sena Cheatham DO [Primary Care Provider] - Please follow up with your Primary Care Physician in: 1 Week Disposition: [facility] facility Minutes spent on discharge:: 35 Patient Condition:: Stable Medical Necessity - Tobacco Use Smoking Status: Current every day smoker Meaningful Use Info Meaningful Use Diagnoses (Choose all that apply): None applicable <Rajat Murrell - Last Filed: 12/14/17 15:07> Discharge Date and Diagnosis - Secondary Discharge Diagnosis Chronic Problems (This Medical Record has been edited. Action required.) Benign essential hypertension (Chronic) Type 2 diabetes mellitus (Chronic) Gastroesophageal reflux disease (Chronic) Obesity (Chronic) Osteoarthritis (Chronic) Benign essential hypertension (Chronic) Type 2 diabetes mellitus (Chronic) Gastroesophageal reflux disease (Chronic) Obesity (Chronic) Osteoarthritis (Chronic) Benign essential hypertension (Chronic) Type 2 diabetes mellitus (Chronic) Gastroesophageal reflux disease (Chronic) Obesity (Chronic) Osteoarthritis (Chronic) Insomnia (Chronic) Decreased appetite (Chronic) Depression (Chronic) AAA (abdominal aortic aneurysm) (Chronic) Coronary artery disease (Chronic) Alzheimer's disease (Chronic) Hyperlipidemia (Chronic) CAD (coronary artery disease) (Chronic) 3 stents History of [place] (myocardial infarction) (Chronic) Aneurysm of infrarenal abdominal aorta (Chronic) HTN (hypertension) (Chronic) Anxiety (Chronic) Change in mental status (Chronic) CVA (cerebral vascular accident) (Chronic) Hospital Course and Treatment Imaging Results: 12/14/17 11:00 Stress Test Echo w/o Contrast [ECHO] Routine Summary of Care Provided: This patient was seen in conjunction with MARISA Duran . I have independently interviewed and examined the patient and reviewed pertinent historical, laboratory, and other data. Please refer to MARISA Duran note for details of this patient's presentation, findings, and recommendations. I have reviewed MARISA Duran note and concur with documented findings. In brief, patient is a 77-year-old lady with history of advanced Alzheimer's dementia currently living by herself centered with adult failure to thrive and anxiety. Patient was in addition found to have elevated troponin on admission. She underwent a stress echo which was negative for stress-induced ischemia. Discussions were held with patient and family decision was made to [facility] given the fact that patient was unsafe to be by herself Hospital course: As elicited above by Estelita Martinez, TARGET [employer]TER-C - Physical Exam Vital Signs Temp Pulse Resp BP Pulse Ox 97.7 F L 71 16 145/96 H 94 12/14/17 14:00 12/14/17 14:00 12/14/17 14:00 12/14/17 14:00 12/14/17 14:00 Oxygen Flow Rate (L/min) 2 Oxygen Delivery Method Room Air Weight: 60.9 kg Body Mass Index (BMI) 21.7 Finger Stick Blood Glucose 114 Intake and Output for Last 24 Hours 12/12/17 12/13/17 12/14/17 23:59 23:59 23:59 Intake Total 360 / 360 Balance 360 / 360 Laboratory Tests Past 24 Hrs 12/14/17 12/14/17 12/14/17 02:42 02:42 05:40 WBC 6.2 RBC 4.91 Hgb 15.3 H Hct 45.4 MCV 92.5 MCH 31.2 MCHC 33.7 RDW 12.3 RDW Differential 40.9 Plt Count 227 MPV 10.3 Immature Gran % (Auto) 0.200 Neut % (Auto) 56.4 Lymph % (Auto) 28.8 [place] % (Auto) 11.5 H Eos % (Auto) 2.3 Baso % (Auto) 0.8 Absolute Neuts (auto) 3.5 Absolute Lymphs (auto) 1.78 Total Counted Not Reportable PT INR APTT Sodium 140 Potassium 3.7 Chloride 102 Carbon Dioxide 30.0 Anion Gap 8 BUN 8 Creatinine 0.94 Estim Creat Clear Calc 46.92 Est GFR (MDRD) Af Amer 74 Est GFR (MDRD) Non-Af 61 BUN/Creatinine Ratio 8.5 L Glucose 98 Calcium 9.0 Troponin I 0.176 H 0.177 H B-Natriuretic Peptide Triglycerides 83 Cholesterol 184 LDL Cholesterol 90 VLDL Cholesterol 17 HDL Cholesterol 77 TSH 2.21 12/14/17 12/14/17 12/14/17 05:40 08:08 08:08 WBC RBC Hgb Hct MCV MCH MCHC RDW RDW Differential Plt Count MPV Immature Gran % (Auto) Neut % (Auto) Lymph % (Auto) [place] % (Auto) Eos % (Auto) Baso % (Auto) Absolute Neuts (auto) Absolute Lymphs (auto) Total Counted PT 13.1 INR 1.0 APTT 33.4 Sodium Potassium Chloride Carbon Dioxide Anion Gap BUN Creatinine Estim Creat Clear Calc Est GFR (MDRD) Af Amer Est GFR (MDRD) Non-Af BUN/Creatinine Ratio Glucose Calcium Troponin I 0.168 H B-Natriuretic Peptide 46.6 Triglycerides Cholesterol LDL Cholesterol VLDL Cholesterol HDL Cholesterol TSH POC Glucose 12/14/17 12/14/17 11:19 06:09 POC Glucose 107 105 Code Visit OBSV E&M: [id number] Observation care discharge
--- NOTE | 2017-12-14 14:59 | DS.PCM_ITS ---
<Estelita Martinez - Last Filed: 12/14/17 14:59> Discharge Date and Diagnosis Date of Admission: 12/14/17 Date of Discharge: 12/14/17 - Primary Discharge Diagnosis Active and Suspected Problems (This Medical Record has been edited. Action required.) 1. Elevated troponin- ACS ruled out 2. Functional decline due to advanced Alzheimer's dementia-discharge to SNF 3. CAD status post prior stents 4. Hypertension 5. Hyperlipidemia 6. Anxiety/depression 7. Chronic degenerative joint disease 8. Probable COPD 9. Chronic kidney disease stage II - Secondary Discharge Diagnosis Chronic Problems (This Medical Record has been edited. Action required.) Benign essential hypertension (Chronic) Type 2 diabetes mellitus (Chronic) Gastroesophageal reflux disease (Chronic) Obesity (Chronic) Osteoarthritis (Chronic) Benign essential hypertension (Chronic) Type 2 diabetes mellitus (Chronic) Gastroesophageal reflux disease (Chronic) Obesity (Chronic) Osteoarthritis (Chronic) Benign essential hypertension (Chronic) Type 2 diabetes mellitus (Chronic) Gastroesophageal reflux disease (Chronic) Obesity (Chronic) Osteoarthritis (Chronic) Insomnia (Chronic) Decreased appetite (Chronic) Depression (Chronic) AAA (abdominal aortic aneurysm) (Chronic) Coronary artery disease (Chronic) Alzheimer's disease (Chronic) Hyperlipidemia (Chronic) CAD (coronary artery disease) (Chronic) 3 stents History of [place] (myocardial infarction) (Chronic) Aneurysm of infrarenal abdominal aorta (Chronic) HTN (hypertension) (Chronic) Anxiety (Chronic) Change in mental status (Chronic) CVA (cerebral vascular accident) (Chronic) Hospital Course and Treatment Imaging Results: Diagnostic Data Chest X-Ray 12/14/17 02:21 IMPRESSION: Mild COPD. No acute findings in the lungs. A tortuous aorta Electronically Signed: Edilberto Scott MD at 3:06 EST Tel , Service support , Operations: None Procedures: - - Stress echo Summary of Care Provided: The patient is a 77 year old F admitted 12/14/2017 due to anxiety. She was found to have elevated troponin during lab work on admission. 1. Elevated troponin-ACS rule out. Unclear etiology although appears chronic for patient. Troponins have been 0.1 or greater during prior admissions. Patient underwent a stress echo which showed an EF of 65%, negative for ischemia. 2. Functional decline due to advanced Alzheimer's dementia-no longer safe living at home alone. [place] at [place]. PT/OT. Continue Aricept. 3. Coronary artery disease status post stents-continue statin. Not on aspirin or beta-asher. 4. Hypertension-stable, continue home amlodipine and losartan regimen. 5. Hyperlipidemia-continue statin. 6. Anxiety/depression-continue home lorazepam regimen. 7. Chronic degenerative joint disease 8. Probable COPD-no acute exacerbation. Chest x-ray without acute findings on admission. Patient has not had pulmonary function testing although COPD evident by imaging. 9. Chronic kidney disease stage II-stable. General: Alert, Cooperative, Disoriented HEENT: Atraumatic, PERRLA, EOMI, Normocephalic Neck: Supple, No JVD, Negative Carotid Bruits Lungs: Clear to auscultation, Diminished Cardiovascular: Regular rate, Regular Rhythm, Normal S1, Normal S2, No murmurs Abdomen: Bowel Sounds Present, Soft, Non Tender, Non-Distended Extremities: No clubbing, No cyanosis, No edema, Capillary Refill Less than 3 Seconds Skin: No rashes, No breakdown Musculoskeletal: No Tenderness to Palpation of Joints or Extremities, Muscle Wasting Neurological: Cranial nerves II-XII grossly intact, Neuro grossly intact Psych/Mental Status: Anxious Patient seen exam prior to discharge. Physical assessment as noted above. Patient stable for discharge to SNF with follow-up with primary care physician in 1 week. This patient was seen by MARISA Duran under the supervision of Dr. Murrell. - Physical Exam Vital Signs Temp Pulse Resp BP Pulse Ox 97.7 F L 71 16 145/96 H 94 12/14/17 14:00 12/14/17 14:00 12/14/17 14:00 12/14/17 14:00 12/14/17 14:00 Oxygen Flow Rate (L/min) 2 Oxygen Delivery Method Room Air Weight: 134 lb 4.184 oz Body Mass Index (BMI) 21.7 Finger Stick Blood Glucose 114 Intake and Output for Last 24 Hours 12/12/17 12/13/17 12/14/17 23:59 23:59 23:59 Intake Total 360 / 360 Balance 360 / 360 Laboratory Tests Past 24 Hrs 12/14/17 12/14/17 12/14/17 02:42 02:42 05:40 WBC 6.2 RBC 4.91 Hgb 15.3 H Hct 45.4 MCV 92.5 MCH 31.2 MCHC 33.7 RDW 12.3 RDW Differential 40.9 Plt Count 227 MPV 10.3 Immature Gran % (Auto) 0.200 Neut % (Auto) 56.4 Lymph % (Auto) 28.8 [place] % (Auto) 11.5 H Eos % (Auto) 2.3 Baso % (Auto) 0.8 Absolute Neuts (auto) 3.5 Absolute Lymphs (auto) 1.78 Total Counted Not Reportable PT INR APTT Sodium 140 Potassium 3.7 Chloride 102 Carbon Dioxide 30.0 Anion Gap 8 BUN 8 Creatinine 0.94 Estim Creat Clear Calc 46.92 Est GFR (MDRD) Af Amer 74 Est GFR (MDRD) Non-Af 61 BUN/Creatinine Ratio 8.5 L Glucose 98 Calcium 9.0 Troponin I 0.176 H 0.177 H B-Natriuretic Peptide Triglycerides 83 Cholesterol 184 LDL Cholesterol 90 VLDL Cholesterol 17 HDL Cholesterol 77 TSH 2.21 12/14/17 12/14/17 12/14/17 05:40 08:08 08:08 WBC RBC Hgb Hct MCV MCH MCHC RDW RDW Differential Plt Count MPV Immature Gran % (Auto) Neut % (Auto) Lymph % (Auto) [place] % (Auto) Eos % (Auto) Baso % (Auto) Absolute Neuts (auto) Absolute Lymphs (auto) Total Counted PT 13.1 INR 1.0 APTT 33.4 Sodium Potassium Chloride Carbon Dioxide Anion Gap BUN Creatinine Estim Creat Clear Calc Est GFR (MDRD) Af Amer Est GFR (MDRD) Non-Af BUN/Creatinine Ratio Glucose Calcium Troponin I 0.168 H B-Natriuretic Peptide 46.6 Triglycerides Cholesterol LDL Cholesterol VLDL Cholesterol HDL Cholesterol TSH POC Glucose 12/14/17 12/14/17 11:19 06:09 POC Glucose 107 105 Home Medications: Medications to take at Discharge Pravastatin Sodium [Pravachol] 10 mg PO QHS 02/19/17 Amlodipine [Norvasc] 2.5 mg PO DAILY 05/19/17 Donepezil HCl [Aricept] 10 mg PO DAILY 05/19/17 Lorazepam [Ativan] 0.5 mg PO DAILY #3 tab 12/14/17 Losartan Potassium 100 mg PO DAILY 12/14/17 Mirtazapine [Remeron] 15 mg PO QHS #2 tablet 12/14/17 Following Prescrptions Were Given to Patient: Lorazepam [Ativan] 0.5 mg PO DAILY #3 tab Mirtazapine [Remeron] 15 mg PO QHS #2 tablet Primary Care Physician: Sena Cheatham DO [Primary Care Provider] - Please follow up with your Primary Care Physician in: 1 Week Disposition: [facility] facility Minutes spent on discharge:: 35 Patient Condition:: Stable Medical Necessity - Tobacco Use Smoking Status: Current every day smoker Meaningful Use Info Meaningful Use Diagnoses (Choose all that apply): None applicable <Rajat Murrell - Last Filed: 12/14/17 15:07> Discharge Date and Diagnosis - Secondary Discharge Diagnosis Chronic Problems (This Medical Record has been edited. Action required.) Benign essential hypertension (Chronic) Type 2 diabetes mellitus (Chronic) Gastroesophageal reflux disease (Chronic) Obesity (Chronic) Osteoarthritis (Chronic) Benign essential hypertension (Chronic) Type 2 diabetes mellitus (Chronic) Gastroesophageal reflux disease (Chronic) Obesity (Chronic) Osteoarthritis (Chronic) Benign essential hypertension (Chronic) Type 2 diabetes mellitus (Chronic) Gastroesophageal reflux disease (Chronic) Obesity (Chronic) Osteoarthritis (Chronic) Insomnia (Chronic) Decreased appetite (Chronic) Depression (Chronic) AAA (abdominal aortic aneurysm) (Chronic) Coronary artery disease (Chronic) Alzheimer's disease (Chronic) Hyperlipidemia (Chronic) CAD (coronary artery disease) (Chronic) 3 stents History of [place] (myocardial infarction) (Chronic) Aneurysm of infrarenal abdominal aorta (Chronic) HTN (hypertension) (Chronic) Anxiety (Chronic) Change in mental status (Chronic) CVA (cerebral vascular accident) (Chronic) Hospital Course and Treatment Imaging Results: 12/14/17 11:00 Stress Test Echo w/o Contrast [ECHO] Routine Summary of Care Provided: This patient was seen in conjunction with MARISA Duran . I have independently interviewed and examined the patient and reviewed pertinent historical, laboratory, and other data. Please refer to MARISA Duran note for details of this patient's presentation, findings, and recommendations. I have reviewed MARISA Duran note and concur with documented findings. In brief, patient is a 77-year-old lady with history of advanced Alzheimer's dementia currently living by herself centered with adult failure to thrive and anxiety. Patient was in addition found to have elevated troponin on admission. She underwent a stress echo which was negative for stress-induced ischemia. Discussions were held with patient and family decision was made to discharge patient to group home facility given the fact that patient was unsafe to be by herself Hospital course: As elicited above by Estelita Martinez, CUSTOMER TRAINER-C - Physical Exam Vital Signs Temp Pulse Resp BP Pulse Ox 97.7 F L 71 16 145/96 H 94 12/14/17 14:00 12/14/17 14:00 12/14/17 14:00 12/14/17 14:00 12/14/17 14:00 Oxygen Flow Rate (L/min) 2 Oxygen Delivery Method Room Air Weight: 60.9 kg Body Mass Index (BMI) 21.7 Finger Stick Blood Glucose 114 Intake and Output for Last 24 Hours 12/12/17 12/13/17 12/14/17 23:59 23:59 23:59 Intake Total 360 / 360 Balance 360 / 360 Laboratory Tests Past 24 Hrs 12/14/17 12/14/17 12/14/17 02:42 02:42 05:40 WBC 6.2 RBC 4.91 Hgb 15.3 H Hct 45.4 MCV 92.5 MCH 31.2 MCHC 33.7 RDW 12.3 RDW Differential 40.9 Plt Count 227 MPV 10.3 Immature Gran % (Auto) 0.200 Neut % (Auto) 56.4 Lymph % (Auto) 28.8 [place] % (Auto) 11.5 H Eos % (Auto) 2.3 Baso % (Auto) 0.8 Absolute Neuts (auto) 3.5 Absolute Lymphs (auto) 1.78 Total Counted Not Reportable PT INR APTT Sodium 140 Potassium 3.7 Chloride 102 Carbon Dioxide 30.0 Anion Gap 8 BUN 8 Creatinine 0.94 Estim Creat Clear Calc 46.92 Est GFR (MDRD) Af Amer 74 Est GFR (MDRD) Non-Af 61 BUN/Creatinine Ratio 8.5 L Glucose 98 Calcium 9.0 Troponin I 0.176 H 0.177 H B-Natriuretic Peptide Triglycerides 83 Cholesterol 184 LDL Cholesterol 90 VLDL Cholesterol 17 HDL Cholesterol 77 TSH 2.21 12/14/17 12/14/17 12/14/17 05:40 08:08 08:08 WBC RBC Hgb Hct MCV MCH MCHC RDW RDW Differential Plt Count MPV Immature Gran % (Auto) Neut % (Auto) Lymph % (Auto) [place] % (Auto) Eos % (Auto) Baso % (Auto) Absolute Neuts (auto) Absolute Lymphs (auto) Total Counted PT 13.1 INR 1.0 APTT 33.4 Sodium Potassium Chloride Carbon Dioxide Anion Gap BUN Creatinine Estim Creat Clear Calc Est GFR (MDRD) Af Amer Est GFR (MDRD) Non-Af BUN/Creatinine Ratio Glucose Calcium Troponin I 0.168 H B-Natriuretic Peptide 46.6 Triglycerides Cholesterol LDL Cholesterol VLDL Cholesterol HDL Cholesterol TSH POC Glucose 12/14/17 12/14/17 11:19 06:09 POC Glucose 107 105 Code Visit OBSV E&M: [id number] Observation care discharge
[2017-12-14 16:21] LABS: Bedside Glucose 76 mg/dL (70-110)
--- NOTE | 2017-12-14 16:39 | CASEMGMT ---
Received level of care from [facility]. Faxed it to [facility] along with orders. Spoke with Sade and let her know patient's family will be bringing patient after bit. SW called patient's daughter and she said someone will be in to parts picker patient. CLAUDIA let patient, RN, and law secretary know this information. Plan: d/c to [facility] under intermediate level of care on a PASRR under pending Medicaid (pending # [id number])as she was observation status in the hospital. 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
== END 2017-12-14 15:00 | disposition intermediate care facility (04) ==
LOC: ED 02:33 → PCU 04:36
PROVIDERS: Admitting Provider Internal Medicine; Emergency Provider Emergency Medicine; Family Provider Family Medicine; PCP Family Medicine; Visit Provider Internal Medicine
DX: G30.9 Alzheimer's disease, unspecified (principal); F02.80 Dementia in other diseases classified elsewhere, unspecified severity, without behavioral disturbance, psychotic disturbance, mood disturbance, and anxiety; E78.5 Hyperlipidemia, unspecified; E11.22 Type 2 diabetes mellitus with diabetic chronic kidney disease; I12.9 Hypertensive chronic kidney disease with stage 1 through stage 4 chronic kidney disease, or unspecified chronic kidney disease; N18.2 Chronic kidney disease, stage 2 (mild); I25.10 Atherosclerotic heart disease of native coronary artery without angina pectoris; F41.9 Anxiety disorder, unspecified; J96.01 Acute respiratory failure with hypoxia; K21.9 Gastro-esophageal reflux disease without esophagitis; F32.9 Major depressive disorder, single episode, unspecified; I25.2 Old myocardial infarction; M19.90 Unspecified osteoarthritis, unspecified site; Z95.5 Presence of coronary angioplasty implant and graft; Z79.899 Other long term (current) drug therapy; Z86.73 Personal history of transient ischemic attack (TIA), and cerebral infarction without residual deficits; J44.9 Chronic obstructive pulmonary disease, unspecified; R62.7 Adult failure to thrive; R79.89 Other specified abnormal findings of blood chemistry; R94.31 Abnormal electrocardiogram [ECG] [EKG]; F17.210 Nicotine dependence, cigarettes, uncomplicated
CPT/HCPCS: 36415; 71045; 80048; 80061; 82962; 83880; 84443; 84484; 85025; 85610; 85730; 93005; 93017; 93350; 97802; 99218; 99285; 99406; J7040; A4216; G0378

== ENCOUNTER → 2017-12-17 05:00 | Outpatient (REF) | payer MEDICARE, OTHER, SELFPAY ==
[2017-12-17 07:49] LABS: Hemoglobin 13.8 g/dl (12.0-15.0); Mean Corp Hgb Conc 32.9 g/gl (32-36); Mean Corpuscular Hgb 30.9 pg (27.0-32.0); Mean Corpuscular Volume 94.2 fL (81-99); Mean Platelet Vol. 11.2 fl (6.2-12.0); Platelet Count 196 K/mm3 (150-450); RBC Distribution Width CV 12.3 % (11.6-14.6); RBC Distribution Width SD 41.9 fl (35.1-43.9); Red Blood Count 4.46 M/mm3 (4.2-5.4); White Blood Count 5.1 K/mm3 (4.4-11.0)
[2017-12-17 07:53] LABS: Scan Indicated on CBC? Y/N NO
[2017-12-17 08:00] LABS: BUN 14 mg/dL (7-18); BUN/Creat Ratio 15.7 RATIO (10-20); Calcium,Total 8.5 mg/dL (8.5-10.1); Creatinine, Serum 0.89 mg/dL (0.55-1.02); EST Glomerular Filtration Rate 65 mL/min (>60); Est Glom Filt Rate - Afr Amer 79 mL/min (>60); Glucose 83 mg/dL (74-106); Sodium Level 140 mmol/L (136-145)
[2017-12-17 08:01] LABS: Anion Gap 5 (5-15); Chloride 105 mmol/L (98-107); Potassium 3.9 mmol/L (3.5-5.1)
== END ==
LOC: OLS.WHLCAR 05:00
PROVIDERS: Visit Provider Family Medicine
DX: E11.9 Type 2 diabetes mellitus without complications (principal); I10 Essential (primary) hypertension; E78.5 Hyperlipidemia, unspecified
CPT/HCPCS: 36415; 80048; 85027

== ENCOUNTER → 2017-12-24 05:00 | Outpatient (REF) | payer MEDICARE, OTHER, SELFPAY ==
[2017-12-24 07:54] LABS: Hematocrit 42.3 % (37-47); Hemoglobin 13.7 g/dl (12.0-15.0); Mean Corp Hgb Conc 32.4 g/gl (32-36); Mean Corpuscular Hgb 30.5 pg (27.0-32.0); Mean Corpuscular Volume 94.2 fL (81-99); Mean Platelet Vol. 10.8 fl (6.2-12.0); Platelet Count 138 K/mm3 (150-450); RBC Distribution Width CV 12.1 % (11.6-14.6); RBC Distribution Width SD 41.6 fl (35.1-43.9); Red Blood Count 4.49 M/mm3 (4.2-5.4); White Blood Count 5.6 K/mm3 (4.4-11.0)
[2017-12-24 08:05] LABS: Scan Indicated on CBC? Y/N NO
[2017-12-24 08:23] LABS: Anion Gap 8 (5-15); BUN 15 mg/dL (7-18); BUN/Creat Ratio 18.4 RATIO (10-20); Calcium,Total 8.5 mg/dL (8.5-10.1); Chloride 106 mmol/L (98-107); Creatinine, Serum 0.82 mg/dL (0.55-1.02); EST Glomerular Filtration Rate 72 mL/min (>60); Est Glom Filt Rate - Afr Amer 87 mL/min (>60); Glucose 86 mg/dL (74-106); Sodium Level 140 mmol/L (136-145)
== END ==
LOC: OLS.WHLCAR 05:00
PROVIDERS: Visit Provider Family Medicine
DX: E11.9 Type 2 diabetes mellitus without complications (principal); I10 Essential (primary) hypertension; E78.5 Hyperlipidemia, unspecified
CPT/HCPCS: 36415; 80048; 85027

== ENCOUNTER → 2017-12-31 05:00 | Outpatient (REF) | payer MEDICARE, OTHER, SELFPAY ==
[2017-12-31 08:54] LABS: Hematocrit 40.2 % (37-47); Hemoglobin 13.4 g/dl (12.0-15.0); Mean Corp Hgb Conc 33.3 g/gl (32-36); Mean Corpuscular Hgb 31.3 pg (27.0-32.0); Mean Corpuscular Volume 93.9 fL (81-99); Mean Platelet Vol. 10.7 fl (6.2-12.0); Platelet Count 171 K/mm3 (150-450); RBC Distribution Width CV 12.1 % (11.6-14.6); RBC Distribution Width SD 40.4 fl (35.1-43.9); Red Blood Count 4.28 M/mm3 (4.2-5.4); White Blood Count 5.2 K/mm3 (4.4-11.0)
[2017-12-31 09:04] LABS: Anion Gap 5 (5-15); BUN 15 mg/dL (7-18); BUN/Creat Ratio 17.1 RATIO (10-20); Calcium,Total 8.4 mg/dL (8.5-10.1); Chloride 105 mmol/L (98-107); Creatinine, Serum 0.88 mg/dL (0.55-1.02); EST Glomerular Filtration Rate 67 mL/min (>60); Est Glom Filt Rate - Afr Amer 81 mL/min (>60); Glucose 79 mg/dL (74-106); Sodium Level 140 mmol/L (136-145)
[2017-12-31 09:12] LABS: Scan Indicated on CBC? Y/N NO
== END ==
LOC: OLS.WHLEAS 05:00
PROVIDERS: Visit Provider Family Medicine
DX: E11.9 Type 2 diabetes mellitus without complications (principal); I10 Essential (primary) hypertension; E78.5 Hyperlipidemia, unspecified
CPT/HCPCS: 36415; 80048; 85027

== ENCOUNTER → 2018-01-04 21:00 | Outpatient (REF) | payer MEDICARE, OTHER, SELFPAY ==
--- OUTSIDE RECORDS SUMMARY | 2018-03-01 18:19 | XMS RPT_ITS ---
:1940 Author Organization OHIP Support Name Relationship Address Phone Michael Tang Unavailable [address] + [place] [address] R Unavailable Unavailable Unavailable Kostas, Kacie Unavailable [address] + [place] [address] Tang Michael Unavailable [address] + [place] [address] R Unavailable Unavailable Unavailable Kostas, Kacie Unavailable [address] + [place] [address] Tang Michael Unavailable [address] + [place] [address] R Unavailable Unavailable Unavailable Kostas, Kacie Unavailable [address] + [place] [address] Tang, Michael Unavailable [address] + [place] [address] R Unavailable Unavailable Unavailable Kostas, Kacie Unavailable [address] + [place] [address] Tang, Michael Unavailable [address] + [place] [address] R Unavailable Unavailable Unavailable Kostas, Kacie Unavailable [address] + [place] [address] TANG MICHAEL Unavailable [address] + [place] [address] R Unavailable Unavailable Unavailable KOSTAS, KACIE Unavailable [address] + [place] [address] Tang, Michael Unavailable [address] + [place] [address] R Unavailable Unavailable Unavailable Kostas, Kacie Unavailable [address] + [place] [address] TANG MICHAEL Unavailable [address] + [place] [address] R Unavailable Unavailable Unavailable KOSTAS, KACIE Unavailable [address] + [place] [address] TANG, MICHAEL Unavailable [address] + [place] [address] R Unavailable Unavailable Unavailable KOSTAS, KACIE Unavailable [address] + [place] [address] TANG, MICHAEL Unavailable [address] + [place] [address] R Unavailable Unavailable Unavailable KOSTAS, KACIE Unavailable [address] + [place] [address] TANG, MICHAEL Unavailable [address] + [place] [address] R Unavailable Unavailable Unavailable KOSTAS, KACIE Unavailable [address] + [place] [address] TANG, MICHAEL Unavailable [address] + [place] [address] R Unavailable Unavailable Unavailable STARLING, KACIE Unavailable [address] + [place] [address] TANG, MICHAEL Unavailable [address] + [place] [address] R Unavailable Unavailable Unavailable KOSTAS, KACIE Unavailable [address] + [place] [address] TANG, MICHAEL Unavailable [address] + [place] [address] R Unavailable Unavailable Unavailable KOSTAS, KACIE Unavailable [address] + [place] [address] TANG, MICHAEL Unavailable [address] + [place] [address] R Unavailable Unavailable Unavailable STARLING, KACIE Unavailable [address] + [place] [address] TANG, MICHAEL Unavailable [address] + [place] [address] R Unavailable Unavailable Unavailable STARLING, KACIE Unavailable [address] + [place] [address] TANG, MICHAEL Unavailable [address] + [place] [address] R Unavailable Unavailable Unavailable STARLING, KACIE Unavailable [address] + [place] [address] GARFIELD TANGITE Unavailable [address] + [place] [address] R Unavailable Unavailable Unavailable STARLING, KACIE Unavailable [address] + [place] [address] HERNANDEZ TANGUERITE Unavailable [address] + [place] [address] R Unavailable Unavailable Unavailable STARLING, KACIE Unavailable [address] + [place] [address] Care Team Providers Name Role Phone Raajt Coombs Primary Care Unavailable Gabrielle, Abdulaziz Admitting Unavailable Denice, Tano S. Consulting Unavailable Dionicio, Vini Attending Unavailable Gabrielle, Abdulaziz Admitting Unavailable Rajat Coombs Primary Care Unavailable Denice, Tano S. Consulting Unavailable Chidi Fam Attending Unavailable Chidi Fam Consulting Unavailable Gabrielle, Abdulaziz Admitting Unavailable Rajat Coombs Primary Care Unavailable Denice, Tano S. Consulting Unavailable Dionicio, Vini Attending Unavailable Dionicio, Vini Consulting Unavailable Gabrielle, Abdulaziz Admitting Unavailable Rajat Coombs Primary Care Unavailable Denice, Tano S. Consulting Unavailable Dionicio, Vini Attending Unavailable Dionicio, Vini Consulting Unavailable Dionicio, Vini Attending Unavailable Gabrielle, Abdulaziz Admitting Unavailable Rajat Coombs Primary Care Unavailable Denice, Tano S. Consulting Unavailable Dionicio, Vini Consulting Unavailable Rodrigo, Mohit Chi Admitting Unavailable Rodrigo, Mohit Chi Attending Unavailable Rodrigo, Mohit Chi Referring Unavailable Rajat Coombs Primary Care Unavailable Devin Ventura Attending Unavailable Rajat Coombs Referring Unavailable Dipesh Jeffries Attending Unavailable Dionicio, Vini Referring Unavailable Acuna, Germán Attending Unavailable Malys, Sena Primary Care Unavailable Acuna, Germán Attending Unavailable Malys, Sena Primary Care Unavailable Malys, Sena Primary Care Unavailable Acuna, Germán Attending Unavailable Malys, Sena Primary Care Unavailable Dev Pelaez Attending Unavailable Malys, Sena Primary Care Unavailable Dionicio, Vini Admitting Unavailable Rajat Murrell Attending Unavailable Dionicio, Vini Admitting Unavailable Dionicio, Vini Attending Unavailable MiloysSena Primary Care Unavailable Vini Greenberg Consulting Unavailable Aric Tang Attending Unavailable Shaheen, Aric Attending Unavailable Shaheen, Aric Attending Unavailable Bari Buckner Attending Unavailable Rajat Murrell Referring Unavailable Tang, Aric Attending Unavailable PROBLEMS PROBLEMS DATE TYPE CONDITION / CODE ATTENDING STATUS SOURCE 01/10/2018 Unknown I10 - Essential Aric Tang Active [place] (primary) Community hypertension / Hospital I10(ICD-10) Repository 01/10/2018 Unknown E78.5 - Aric Tang Active [place] Hyperlipidemia, Community unspecified / Hospital E78.5(ICD-10) Repository 01/10/2018 Unknown E11.9 - Type 2 Aric Tang Active [place] diabetes mellitus Community without Hospital complications / Repository E11.9(ICD-10) 12/24/2017 Unknown R00.2 - Rajat Murrell Active [place] Palpitations / Community R00.2(ICD-10) Hospital Repository 08/03/2017 Unknown R41.0 - Acuna, Germán Active [place] Disorientation, Community unspecified / Hospital R41.0(ICD-10) Repository 06/21/2017 Unknown F03.90 - Acuna, Germán Active [place] Unspecified Community dementia without Hospital behavioral Repository disturbance / F03.90(ICD-10) 05/28/2017 Unknown G93.40 - Rodrigo, Mohit Chi Active [place] Encephalopathy, Community unspecified / Hospital G93.40(ICD-10) Repository 05/28/2017 Unknown R41.82 - Altered Vini Greenberg Active [place] mental status, Community unspecified / Hospital R41.82(ICD-10) Repository PROCEDURES PROCEDURES No Procedure Records FoundRESULTS RESULTS Observed: 01/04/2018 Status: F Source: [place] CULTURE, URINE 9:00 PM [facility] REPOSITORY Urine Culture ORGANISM 1: Klebsiella oxytoca [place] Count >100,000 Klebsiella oxytoca: REACTION Amoxacillin/Clavulanic Acid $ <=2 S Ampicillin $ 16 R Ampicillin/Sulbactam $ 4 S Cefazolin $ 16 I Cefepime $ <=1 S Ceftriaxone $ <=1 S Ciprofloxacin $ <=0.25 S ESBL - Ertapenim $$$ <=0.5 S Gentamicin $ <=1 S Imipenem *NF <=0.25 S Levofloxacin $ <=0.12 S Nitrofurantoin $ <=16 S Piperacillin/Tazobactam $$ <=4 S Tobramycin $ <=1 S Trimethoprim/Sulfametho $ <=20 S (NF) indicates non-formulary drug at [facility]. Approval by Infectious Disease Specialist required before non-formulary drugs may be ordered and/or dispensed. Performed By: #### M100.0650 #### [facility] [address] [place], [place], [address] BASIC METABOLIC Collected: 12/31/2017 Status: F Source: [place] PROFILE (BMP) 6:20 AM [facility] REPOSITORY Order Comment: 314-2 TYPE CODE TESTS RESULT OUT OF RANGE REFERENCE UNITS LAB L501.0100 74-106 mg/dL Normal GLU 79 Result Comment: Please note revised GLUCOSE reference range effective 2017. LAB L501.1000 7-18 mg/dL Normal BUN 15 LAB L501.1100 0.55-1.02 mg/dL Normal CREAT,SERUM 0.88 Result Comment: The validity of the calculated GFR AND GFRAA in patients over 70 years has not been determined. Clinical correlation is essential. LAB L501.1110 >60 mL/min Normal EST GFR 67 Result Comment: Non- GFR Calc LAB L501.1115 >60 mL/min Normal EST GFR - AA 81 Result Comment: GFR Calc LAB L501.1300 10-20 RATIO Normal BUN/CRE 17.1 LAB L501.2200 8.5-10.1 mg/dL Low CA 8.4 LAB L501.5300 136-145 mmol/L NA Normal 140 LAB L501.5600 3.5-5.1 mmol/L K Normal 4.0 LAB L501.5900 98-107 mmol/L CL Normal 105 LAB L501.6100 21.0-32.0 mmol/L Normal CO2 30.0 LAB L501.6200 5-15 Normal GAP 5 Performed By: #### L500.2500 #### [facility] [address] [facility] [place], [address] CBC-COMPLETE BLOOD CNT Collected: 12/31/2017 Status: F Source: [place] NO DIFF 6:20 AM [facility] REPOSITORY Order Comment: 314-2 TYPE CODE TESTS RESULT OUT OF RANGE REFERENCE UNITS LAB L100.1000 4.4-11.0 K/mm3 Normal WBC 5.2 LAB L100.1200 4.2-5.4 M/mm3 Normal RBC 4.28 LAB L100.1300 12.0-15.0 g/dl Normal HGB 13.4 LAB L100.1400 37-47 % Normal HCT 40.2 LAB L100.1500 81-99 fL Normal MCV 93.9 LAB L100.1600 27.0-32.0 pg Normal MCH 31.3 LAB L100.1700 32-36 g/gl Normal MCHC 33.3 LAB L100.1810 11.6-14.6 % Normal RDW CV 12.1 LAB L100.1820 35.1-43.9 fl Normal RDW SD 40.4 LAB L100.1900 150-450 K/mm3 Normal PLT 171 LAB L100.2000 6.2-12.0 fl Normal MPV 10.7 Performed By: #### L100.0500 #### [facility] [address] [facility] [place], [address] HISTORY AND PHYSICAL Observed: 12/24/2017 Status: F Source: [place] EXAM 1:43 PM [facility] REPOSITORY [facility] Medical Records Department [address] [place] [address] History and Physical 12/14/17 0440 MR#: [id number] Acct: [id number] Name: KATTY MIGUEL Rep #: [id number] : 1940 77 From: Vini Greenberg MD PCP: Sena Cheatham DO Status: DIS TELLO Y Location: [place] [address] ADDENDUM by Vini Greenberg MD on 12/24/17 at 1343 Code Visit The patient is current everyday smoker. Smokes cigarettes. 12/24/17 1343 <Electronically signed by Vini Greenberg MD> Date Vini Greenberg MD cc: Sena Cheatham DO; Vini Greenberg MD * Signed Problem List (1) Palpitation Status: Acute (2) Acute respiratory failure with hypoxia Status: Acute (3) CVA (cerebral vascular accident) Status: Chronic (4) Change in mental status Status: Chronic Qualifiers: Altered mental status type: disorientation Qualified Code(s): R41.0 - Disorientation, unspecified (5) Community acquired pneumonia Status: Resolved (6) Encephalopathy Status: Resolved (7) UTI (urinary tract infection) Status: Resolved (8) AAA (abdominal aortic aneurysm) Status: Chronic (9) Alzheimer's disease Status: Chronic (10) Aneurysm of infrarenal abdominal aorta Status: Chronic (11) Anxiety Status: Chronic (12) Benign essential hypertension Status: Chronic (13) Benign essential hypertension Status: Chronic (14) Benign essential hypertension Status: Chronic (15) CAD (coronary artery disease) Status: Chronic Comment: 3 stents (16) Coronary artery disease Status: Chronic (17) Decreased appetite Status: Chronic (18) Depression Status: Chronic (19) Gastroesophageal reflux disease Status: Chronic (20) Gastroesophageal reflux disease Status: Chronic (21) Gastroesophageal reflux disease Status: Chronic (22) HTN (hypertension) Status: Chronic (23) History of [place] (myocardial infarction) Status: Chronic (24) Hyperlipidemia Status: Chronic (25) Insomnia Status: Chronic (26) Obesity Status: Chronic (27) Obesity Status: Chronic (28) Obesity Status: Chronic (29) Osteoarthritis Status: Chronic (30) Osteoarthritis Status: Chronic (31) Osteoarthritis Status: Chronic (32) Type 2 diabetes mellitus Status: Chronic (33) Type 2 diabetes mellitus Status: Chronic (34) Type 2 diabetes mellitus Status: Chronic History of Present Illness Date of Admission: 12/14/17 Chief Complaint: Elevated trop The patient is a 77 year old F with H/o CAD S/P 3 stents, Type 2 DM woke up today with anxiety and palpitation as mentioned to the ER physician. She also told the ER physician that she felt like she is going to . She was brought in by EMS. When I asked the patient she does not remember and just said she had some weird feeling but could not explain further. She denies chest pain. No shortness of breath. The patient does not have significant leg edema. In ED, vitals are stable. Basic labs remarkable was troponin elevation 0.176. EKG shows normal sinus rhythm with nonspecific ST-T abnormality at 74 bpm. Patient is further admitted. [] Past Medical History Past Medical History (Chronic Problems): Chronic Problems (This Medical Record has been edited. Action required.) Benign essential hypertension (Chronic) Type 2 diabetes mellitus (Chronic) Gastroesophageal reflux disease (Chronic) Obesity (Chronic) Osteoarthritis (Chronic) Benign essential hypertension (Chronic) Type 2 diabetes mellitus (Chronic) Gastroesophageal reflux disease (Chronic) Obesity (Chronic) Osteoarthritis (Chronic) Benign essential hypertension (Chronic) Type 2 diabetes mellitus (Chronic) Gastroesophageal reflux disease (Chronic) Obesity (Chronic) Osteoarthritis (Chronic) Insomnia (Chronic) Decreased appetite (Chronic) Depression (Chronic) AAA (abdominal aortic aneurysm) (Chronic) Coronary artery disease (Chronic) Alzheimer's disease (Chronic) Hyperlipidemia (Chronic) CAD (coronary artery disease) (Chronic) 3 stents History of [place] (myocardial infarction) (Chronic) Aneurysm of infrarenal abdominal aorta (Chronic) HTN (hypertension) (Chronic) Anxiety (Chronic) Change in mental status (Chronic) CVA (cerebral vascular accident) (Chronic) Allergies codeine Allergy (Unverified 12/14/17 01:55) Rash NSAIDS (Non-Steroidal Anti-Inflamma Allergy (Unverified 12/14/17 01:55) Rash Penicillins Allergy (Unverified 12/14/17 01:55) Rash solifenacin [From Vesicare] Allergy (Unverified 12/14/17 01:55) Unknown Sulfa (Sulfonamide Antibiotics) Allergy (Verified 12/14/17 01:55) Unknown Home Medications: Ambulatory Orders Medication Instructions Recorded Donepezil HCl [Aricept] 10 mg PO QHS 02/19/17 Mirtazapine 7.5 mg PO QHS 02/19/17 Pravastatin Sodium [Pravachol] 10 mg PO QHS 02/19/17 Surgical History: angioplasty - Cardiac stent x 3., - - Abdominal aortic aneurysm repair. Psychiatric History: Anxiety, Depression STOCK CLERK History: No pertinent STOCK CLERK history Smoking Status: Current every day smoker - *Family History Maternal History Items: No pertinent history Paternal History Items: Cancer - Her father of lung cancer Review of Systems Constitutional: Denies: Chills, Fever, Weight Change HEENT: Denies: Head Aches, Sinus Congestion, Sinus Drainage Cardiovascular: Reports: Palpitations. Denies: Chest Pain Respiratory: Denies: Cough, Shortness of breath at rest, Sputum production Gastrointestinal: Denies: Abdominal Pain, Nausea, Vomiting Genitourinary: Denies: Dysuria Musculoskeletal: Denies: Joint Pain, Joint Tenderness Skin: Denies: Rash, Wounds Neurological: Denies: Numbness, Tingling, Focal weakness Psychiatric: Reports: Anxiety, Depression. Denies: Homicidal Ideations, Suicidal Ideations Hematologic/ Lymphatic: Denies: Easy Bruising, Easy Bleeding Unable to obtain accurate/complete ROS d/t: Patient does not remember well; probably advanced dementia VTE Information - Inpt Only VTE Present on Admission: No VTE Mechan Device Prophylaxis: None VTE Pharm Prophylaxis ordered?: Yes Patient Problems: Active and Suspected Problems (This Medical Record has been edited. Action required.) Palpitation (Acute) - Physical Exam General: Oriented x3, Cooperative, Lethargic, - - Forgetfulness. Dementia HEENT: Atraumatic, PERRLA, EOMI, Normocephalic Neck: Supple, No JVD, Negative Carotid Bruits Lungs: Clear to auscultation, No rhonchi, No wheeze, No rales, Diminished - Air entry diminished in bilateral lung bases Cardiovascular: Regular rate, Regular Rhythm, Normal S1, Normal S2, No murmurs Abdomen: Bowel Sounds Present, Soft, Non Tender, Non-Distended Extremities: Capillary Refill Less than 3 Seconds, Edema - Mild pedal edema, chronic in nature Skin: No rashes, No breakdown Musculoskeletal: No Tenderness to Palpation of Joints or Extremities, Arthritic Changes, Muscle Wasting Neurological: Cranial nerves II-XII grossly intact, Deep Tendon Reflexes 2+/4 and Symmetrical, Neuro grossly intact Vital Signs Temp Pulse Resp BP Pulse Ox 98.1 F 70 18 138/88 H 96 12/14/17 01:50 12/14/17 04:29 12/14/17 04:29 12/14/17 04:29 12/14/17 04:29 Oxygen Flow Rate (L/min) 2 Oxygen Delivery Method Nasal Cannula Weight: 145 lb Body Mass Index (BMI) 23.3 Finger Stick Blood Glucose 114 Laboratory Tests Past 24 Hrs WBC 6.2 RBC 4.91 Hgb 15.3 H Hct 45.4 MCV 92.5 MCH 31.2 MCHC 33.7 RDW 12.3 Assessment/Plan All Active Problems (This Medical Record has been edited. Action required.) Palpitation (Acute) Encephalopathy (Resolved) Acute respiratory failure with hypoxia (Acute) Community acquired pneumonia (Resolved) UTI (urinary tract infection) (Resolved) The patient is a 77 year old F with H/o CAD S/P 3 stents, Type 2 DM woke up today with anxiety and palpitation as mentioned to the ER physician. She also told the ER physician that she felt like she is going to . She was brought in by EMS. When I asked the patient she does not remember and just said she had some weird feeling but could not explain further. She denies chest pain. No shortness of breath. The patient does not have significant leg edema. Further history is unobtainable because of advanced dementia In ED, vitals are stable. Basic labs remarkable was troponin elevation 0.176. EKG shows normal sinus rhythm with nonspecific ST-T abnormality at 74 bpm. Patient is further admitted. 1. Elevated troponin and possible palpitation, exact etiology unclear: Patient is being admitted to PCU for cardiac monitoring. Cycle cardiac enzymes. If troponins trend support and will need further cardiology evaluation. If it remains plateau, consider stress echo. Continue aspirin, nitro sublingual if chest pain, valsartan and other cardiac medications. 2. Coronary artery disease status post stents: 3. Advanced Alzheimer's dementia: Patient is on Aricept, Remeron 4. Diabetes mellitus type 2: Accu-Chek before meals and at bedtime and cover with NovoLog sliding scale. 5. Hypertension, dyslipidemia, CVA in the past, anxiety 6. Other chronic comorbidities include GERD, chronic degenerative joint disease, anxiety and depression 7. COPD: Patient does not have wheezing and does not seem to been acute exacerbation. Chest x-ray does not show acute finding but chronic changes of COPD. Home medication reconciliation done. DVT prophylaxis: On heparin 5000 subcutaneous twice daily. Code Visit OBSV E AND M: [id number] Initial observation care L3 12/14/17 0506 <Electronically signed by Vini Greenberg MD> Date Vini Greenberg MD Cosigner Signature: Date (if applicable) CC: Sena Cheatham DO; Vini Greenberg MD Signed CBC-COMPLETE BLOOD CNT Collected: 12/24/2017 Status: F Source: [place] NO DIFF 6:30 AM [facility] REPOSITORY Order Comment: 314-2 TYPE CODE TESTS RESULT OUT OF RANGE REFERENCE UNITS LAB L100.1000 4.4-11.0 K/mm3 Normal WBC 5.6 LAB L100.1200 4.2-5.4 M/mm3 Normal RBC 4.49 LAB L100.1300 12.0-15.0 g/dl Normal HGB 13.7 LAB L100.1400 37-47 % Normal HCT 42.3 LAB L100.1500 81-99 fL Normal MCV 94.2 LAB L100.1600 27.0-32.0 pg Normal MCH 30.5 LAB L100.1700 32-36 g/gl Normal MCHC 32.4 LAB L100.1810 11.6-14.6 % Normal RDW CV 12.1 LAB L100.1820 35.1-43.9 fl Normal RDW SD 41.6 LAB L100.1900 150-450 K/mm3 Low PLT 138 LAB L100.2000 6.2-12.0 fl Normal MPV 10.8 Performed By: #### L100.0500 #### [facility] [address] [place], [place], [address] BASIC METABOLIC Collected: 12/24/2017 Status: F Source: [place] PROFILE (BMP) 6:30 AM [facility] REPOSITORY Order Comment: 314-2 TYPE CODE TESTS RESULT OUT OF RANGE REFERENCE UNITS LAB L501.0100 74-106 mg/dL Normal GLU 86 Result Comment: Please note revised GLUCOSE reference range effective 2017. LAB L501.1000 7-18 mg/dL Normal BUN 15 LAB L501.1100 0.55-1.02 mg/dL Normal CREAT,SERUM 0.82 Result Comment: The validity of the calculated GFR AND GFRAA in patients over 70 years has not been determined. Clinical correlation is essential. LAB L501.1110 >60 mL/min Normal EST GFR 72 Result Comment: Non- GFR Calc LAB L501.1115 >60 mL/min Normal EST GFR - AA 87 Result Comment: GFR Calc LAB L501.1300 10-20 RATIO Normal BUN/CRE 18.4 LAB L501.2200 8.5-10.1 mg/dL CA Normal 8.5 LAB L501.5300 136-145 mmol/L NA Normal 140 LAB L501.5600 3.5-5.1 mmol/L K Normal 4.0 LAB L501.5900 98-107 mmol/L CL Normal 106 LAB L501.6100 21.0-32.0 mmol/L Normal CO2 26.0 LAB L501.6200 5-15 Normal GAP 8 Performed By: #### L500.2500 #### [facility] [address] [facility] [place], [address] 12 LEAD ELECTROCARDIOGRAM Observed: 12/17/2017 Status: F Source: [place] 3:00 PM [facility] REPOSITORY [facility] Cardiovascular Services [address] [place] [address] 12 Lead EKG 12/14/17 0546 MR#: [id number] Acct: [id number] Name: KATTY MIGUEL Rep #: [id number] : 1940 77 From: Bari Buckner MD Attending Dr: Rajat Murrell MD Status: DIS TELLO Ordering Dr: Vini Greenberg MD Date: 12/14/17 Location: [facility] Sex: F C Admitted: 12/14/17 Test Reason : AM Blood Pressure : / mmHG Vent. Rate : 063 BPM Atrial Rate : 063 BPM P-R Int : 198 ms QRS Dur : 088 ms QT Int : 420 ms P-R-T Axes : 088 074 097 degrees QTc Int : 429 ms Normal sinus rhythm Normal ECG When compared with ECG of 17-JUL-2017 00:17, No significant change was found Confirmed by BARI BUCKNER ([id number]), film editor supervisor YESIKA TANG ([id number]) on 12/17/2017 2:59:48 PM Referred By: DIONICIO Confirmed By:BARI BUCKNER 12/17/17 1459 Date Bari Buckner MD CC: Rajat Murrell MD; Sena Cheatham DO; Vini Greenberg MD Signed 12 LEAD ELECTROCARDIOGRAM Observed: 12/17/2017 Status: F Source: [place] 2:18 PM [facility] REPOSITORY [facility] Cardiovascular Services [address] [place] [address] 12 Lead EKG 12/14/17 0237 MR#: [id number] Acct: [id number] Name: KATTY MIGUEL Rep #: [id number] : 1940 77 From: Bari Buckner MD Attending Dr: Rajat Murrell MD Status: DIS TELLO Ordering Dr: Dipesh Hurd MD Date: 12/14/17 Location: [facility] Sex: F C Admitted: 12/14/17 Test Reason : Blood Pressure : / mmHG Vent. Rate : 074 BPM Atrial Rate : 074 BPM P-R Int : 192 ms QRS Dur : 074 ms QT Int : 392 ms P-R-T Axes : 079 039 083 degrees QTc Int : 435 ms Normal sinus rhythm Possible Left atrial enlargement Nonspecific ST abnormality Abnormal ECG Confirmed by BARI BUCKNER ([id number]), film editor supervisor YESIKA TANG ([id number]) on 12/17/2017 2:18:24 PM Referred By: CR Confirmed By:BARI BUCKNER 12/17/17 1418 Date Bari Buckner MD CC: Rajat Murrell MD; Sena Cheatham DO; Dipesh Hurd MD Signed CBC-COMPLETE BLOOD CNT Collected: 12/17/2017 Status: F Source: [place] NO DIFF 6:40 AM [facility] REPOSITORY Order Comment: 314-2 TYPE CODE TESTS RESULT OUT OF RANGE REFERENCE UNITS LAB L100.1000 4.4-11.0 K/mm3 Normal WBC 5.1 LAB L100.1200 4.2-5.4 M/mm3 Normal RBC 4.46 LAB L100.1300 12.0-15.0 g/dl Normal HGB 13.8 LAB L100.1400 37-47 % Normal HCT 42.0 LAB L100.1500 81-99 fL Normal MCV 94.2 LAB L100.1600 27.0-32.0 pg Normal MCH 30.9 LAB L100.1700 32-36 g/gl Normal MCHC 32.9 LAB L100.1810 11.6-14.6 % Normal RDW CV 12.3 LAB L100.1820 35.1-43.9 fl Normal RDW SD 41.9 LAB L100.1900 150-450 K/mm3 Normal PLT 196 LAB L100.2000 6.2-12.0 fl Normal MPV 11.2 Performed By: #### L100.0500 #### [facility] [address] [facility] [place], [place], [address] BASIC METABOLIC Collected: 12/17/2017 Status: F Source: [place] PROFILE (BMP) 6:40 AM [facility] REPOSITORY Order Comment: 314-2 TYPE CODE TESTS RESULT OUT OF RANGE REFERENCE UNITS LAB L501.0100 74-106 mg/dL Normal GLU 83 Result Comment: Please note revised GLUCOSE reference range effective 2017. LAB L501.1000 7-18 mg/dL Normal BUN 14 LAB L501.1100 0.55-1.02 mg/dL Normal CREAT,SERUM 0.89 Result Comment: The validity of the calculated GFR AND GFRAA in patients over 70 years has not been determined. Clinical correlation is essential. LAB L501.1110 >60 mL/min Normal EST GFR 65 Result Comment: Non- GFR Calc LAB L501.1115 >60 mL/min Normal EST GFR - AA 79 Result Comment: GFR Calc LAB L501.1300 10-20 RATIO Normal BUN/CRE 15.7 LAB L501.2200 8.5-10.1 mg/dL CA Normal 8.5 LAB L501.5300 136-145 mmol/L NA Normal 140 LAB L501.5600 3.5-5.1 mmol/L K Normal 3.9 LAB L501.5900 98-107 mmol/L CL Normal 105 LAB L501.6100 21.0-32.0 mmol/L Normal CO2 30.0 LAB L501.6200 5-15 Normal GAP 5 Performed By: #### L500.2500 #### [facility] [address] [place], [address] BEDSIDE GLUCOSE Collected: 12/14/2017 Status: F Source: [place] 4:15 PM [facility] REPOSITORY TYPE CODE TESTS RESULT OUT OF RANGE REFERENCE UNITS LAB L501.080 70-110 mg/dL Normal BEDSIDE GLU 76 Result Comment: MANAGEMENT OF PATIENT CARE PER NURSING PROTOCOL Performed By: #### L501.080 #### [facility] Point of Care [address] [place] [address] DISCHARGE SUMMARY Observed: 12/14/2017 Status: F Source: [place] 3:08 PM [facility] REPOSITORY [facility] Medical Records Department [address] [place] [address] Discharge Summary 12/14/17 1456 MR#: [id number] Acct: [id number] Name: KATTY MIGUEL Rep #: [id number] : 1940 77 From: Estelita Martinez MASTER LAY OUT SPECIALISTKeiryC PCP: Sena Cheatham DO Status: ADM TELLO Y Location: [place] [address] <Estelita Martinez - Last Filed: 12/14/17 14:59> Discharge Date and Diagnosis Date of Admission: 12/14/17 Date of Discharge: 12/14/17 - Primary Discharge Diagnosis Active and Suspected Problems (This Medical Record has been edited. Action required.) 1. Elevated troponin- ACS ruled out 2. Functional decline due to advanced Alzheimer's dementia- discharge to SNF 3. CAD status post prior stents 4. Hypertension 5. Hyperlipidemia 6. Anxiety/depression 7. Chronic degenerative joint disease 8. Probable COPD 9. Chronic kidney disease stage II - Secondary Discharge Diagnosis Chronic Problems (This Medical Record has been edited. Action required.) Benign essential hypertension (Chronic) Type 2 diabetes mellitus (Chronic) Gastroesophageal reflux disease (Chronic) Obesity (Chronic) Osteoarthritis (Chronic) Benign essential hypertension (Chronic) Type 2 diabetes mellitus (Chronic) Gastroesophageal reflux disease (Chronic) Obesity (Chronic) Osteoarthritis (Chronic) Benign essential hypertension (Chronic) Type 2 diabetes mellitus (Chronic) Gastroesophageal reflux disease (Chronic) Obesity (Chronic) Osteoarthritis (Chronic) Insomnia (Chronic) Decreased appetite (Chronic) Depression (Chronic) AAA (abdominal aortic aneurysm) (Chronic) Coronary artery disease (Chronic) Alzheimer's disease (Chronic) Hyperlipidemia (Chronic) CAD (coronary artery disease) (Chronic) 3 stents History of [place] (myocardial infarction) (Chronic) Aneurysm of infrarenal abdominal aorta (Chronic) HTN (hypertension) (Chronic) Anxiety (Chronic) Change in mental status (Chronic) CVA (cerebral vascular accident) (Chronic) Hospital Course and Treatment Imaging Results: Diagnostic Data Chest X-Ray 12/14/17 02:21 IMPRESSION: Mild COPD. No acute findings in the lungs. A tortuous aorta Electronically Signed: Edilberto Scott MD at 3:06 EST Tel , Service support , Operations: None Procedures: - - Stress echo Summary of Care Provided: The patient is a 77 year old F admitted 12/14/2017 due to anxiety. She was found to have elevated troponin during lab work on admission. 1. Elevated troponin-ACS rule out. Unclear etiology although appears chronic for patient. Troponins have been 0.1 or greater during prior admissions. Patient underwent a stress echo which showed an EF of 65%, negative for ischemia. 2. Functional decline due to advanced Alzheimer's dementia- no longer safe living at home alone. [facility] [place]. PT/OT. Continue Aricept. 3. Coronary artery disease status post stents-continue statin. Not on aspirin or beta-asher. 4. Hypertension-stable, continue home amlodipine and losartan regimen. 5. Hyperlipidemia-continue statin. 6. Anxiety/depression-continue home lorazepam regimen. 7. Chronic degenerative joint disease 8. Probable COPD-no acute exacerbation. Chest x-ray without acute findings on admission. Patient has not had pulmonary function testing although COPD evident by imaging. 9. Chronic kidney disease stage II-stable. General: Alert, Cooperative, Disoriented HEENT: Atraumatic, PERRLA, EOMI, Normocephalic Neck: Supple, No JVD, Negative Carotid Bruits Lungs: Clear to auscultation, Diminished Cardiovascular: Regular rate, Regular Rhythm, Normal S1, Normal S2, No murmurs Abdomen: Bowel Sounds Present, Soft, Non Tender, Non-Distended Extremities: No clubbing, No cyanosis, No edema, Capillary Refill Less than 3 Seconds Skin: No rashes, No breakdown Musculoskeletal: No Tenderness to Palpation of Joints or Extremities, Muscle Wasting Neurological: Cranial nerves II-XII grossly intact, Neuro grossly intact Psych/Mental Status: Anxious Patient seen exam prior to discharge. Physical assessment as noted above. Patient stable for discharge to SNF with follow-up with primary care physician in 1 week. This patient was seen by MARISA Duran under the supervision of Dr. Murrell. - Physical Exam Vital Signs Temp Pulse Resp BP Pulse Ox 97.7 F L 71 16 145/96 H 94 12/14/17 14:00 12/14/17 14:00 12/14/17 14:00 12/14/17 14:00 12/14/17 14:00 Oxygen Flow Rate (L/min) 2 Oxygen Delivery Method Room Air Weight: 134 lb 4.184 oz Body Mass Index (BMI) 21.7 Finger Stick Blood Glucose 114 Intake and Output for Last 24 Hours Intake Total 360 / 360 Balance 360 / 360 Laboratory Tests Past 24 Hrs WBC 6.2 RBC 4.91 Hgb 15.3 H Hct 45.4 MCV 92.5 MCH 31.2 MCHC 33.7 RDW 12.3 RDW Differential 40.9 POC Glucose POC Glucose 107 105 Home Medications: Medications to take at Discharge Pravastatin Sodium [Pravachol] 10 mg PO QHS 02/19/17 Amlodipine [Norvasc] 2.5 mg PO DAILY 05/19/17 Donepezil HCl [Aricept] 10 mg PO DAILY 05/19/17 Lorazepam [Ativan] 0.5 mg PO DAILY #3 tab 12/14/17 Losartan Potassium 100 mg PO DAILY 12/14/17 Mirtazapine [Remeron] 15 mg PO QHS #2 tablet 12/14/17 Following Prescrptions Were Given to Patient: Lorazepam [Ativan] 0.5 mg PO DAILY #3 tab Mirtazapine [Remeron] 15 mg PO QHS #2 tablet Primary Care Physician: Sena Cheatham DO [Primary Care Provider] - Please follow up with your Primary Care Physician in: 1 Week Disposition: Half-Way facility Minutes spent on discharge:: 35 Patient Condition:: Stable Medical Necessity - Tobacco Use Smoking Status: Current every day smoker Meaningful Use Info Meaningful Use Diagnoses (Choose all that apply): None applicable <Rajat Murrell - Last Filed: 12/14/17 15:07> Discharge Date and Diagnosis - Secondary Discharge Diagnosis Chronic Problems (This Medical Record has been edited. Action required.) Benign essential hypertension (Chronic) Type 2 diabetes mellitus (Chronic) Gastroesophageal reflux disease (Chronic) Obesity (Chronic) Osteoarthritis (Chronic) Benign essential hypertension (Chronic) Type 2 diabetes mellitus (Chronic) Gastroesophageal reflux disease (Chronic) Obesity (Chronic) Osteoarthritis (Chronic) Benign essential hypertension (Chronic) Type 2 diabetes mellitus (Chronic) Gastroesophageal reflux disease (Chronic) Obesity (Chronic) Osteoarthritis (Chronic) Insomnia (Chronic) Decreased appetite (Chronic) Depression (Chronic) AAA (abdominal aortic aneurysm) (Chronic) Coronary artery disease (Chronic) Alzheimer's disease (Chronic) Hyperlipidemia (Chronic) CAD (coronary artery disease) (Chronic) 3 stents History of [place] (myocardial infarction) (Chronic) Aneurysm of infrarenal abdominal aorta (Chronic) HTN (hypertension) (Chronic) Anxiety (Chronic) Change in mental status (Chronic) CVA (cerebral vascular accident) (Chronic) Hospital Course and Treatment Imaging Results: 12/14/17 11:00 Stress Test Echo w/o Contrast [ECHO] Routine Summary of Care Provided: This patient was seen in conjunction with MARISA Duran . I have independently interviewed and examined the patient and reviewed pertinent historical, laboratory, and other data. Please refer to MARISA Duran note for details of this patient's presentation, findings, and recommendations. I have reviewed MARISA Duran note and concur with documented findings. In brief, patient is a 77-year-old lady with history of advanced Alzheimer's dementia currently living by herself centered with adult failure to thrive and anxiety. Patient was in addition found to have elevated troponin on admission. She underwent a stress echo which was negative for stress-induced ischemia. Discussions were held with patient and family decision was made to discharge patient to alf facility given the fact that patient was unsafe to be by herself Hospital course: As elicited above by MARISA Duran - Physical Exam Vital Signs Temp Pulse Resp BP Pulse Ox 97.7 F L 71 16 145/96 H 94 12/14/17 14:00 12/14/17 14:00 12/14/17 14:00 12/14/17 14:00 12/14/17 14:00 Oxygen Flow Rate (L/min) 2 Oxygen Delivery Method Room Air Weight: 60.9 kg Body Mass Index (BMI) 21.7 Finger Stick Blood Glucose 114 Intake and Output for Last 24 Hours Intake Total 360 / 360 Balance 360 / 360 Laboratory Tests Past 24 Hrs WBC 6.2 RBC 4.91 Hgb 15.3 H Hct 45.4 MCV 92.5 MCH 31.2 MCHC 33.7 RDW 12.3 RDW Differential 40.9 POC Glucose POC Glucose 107 105 Code Visit OBSV ALTHEA: 12940 Observation care discharge 12/14/17 1500 <Electronically signed by Estelita Martinez MASTER LAY OUT SPECIALIST-C> Date Estelita Martinez MASTER LAY OUT SPECIALIST-C 12/14/17 1508<Electronically signed by Rajat Murrell MD> Cosigner Signature (if applicable): Date Rajat Murrell MD CC: MASTER LAY OUT SPECIALIST-C Estelita Martinez; Rajat Murrell MD; Sena Cheatham DO Signed TRANSFER TO [facility] Observed: 12/14/2017 Status: F Source: [facility] 2:56 PM [facility] REPOSITORY [facility] Medical Records Department [address] [place] [address] Transfer to Extended Care MR#: [id number] Acct: [id number] Name: KATTY MIGUEL Rep #: [id number] : 1940 77 From: Estelita Martinez NP-C PCP: Sena Cheatham DO Status: ADM TELLO KATTY MIGUEL (Patient) (Health Ins. Claim No.) (Day of Discharge to Facility) Certification of patient admission REQUIRED AT TIME OF ADMISSION. I CERTIFY THAT POST-HOSPITAL ECF SERVICES ARE REQUIRED TO BE GIVEN ON AN IN-PATIENT BASIS BECAUSE OF THE ABOVE NAMED PATIENT'S NEED FOR SHELTER CARE ON A CONTINUING BASIS FOR THE CONDITION(S) FOR WHICH HE/SHE WAS RECEIVING IN-PATIENT HOSPITAL SERVICES PRIOR TO HIS/HER TRANSFER TO THE F. 12/14/17 1456 <Electronically signed by Rajat Murrell MD> Date: - Diet 12/14/17 05:31 Diet: Cardiac: Regular Diet - Routine Orders/Code Status Enema Type: Fleetz Enema Frequency: Daily PRN Suppository Type: Dulcolax 10mg Suppository Frequency: Daily PRN O2 Liters per Minute: 2 O2 Frequency: PRN Keep PO Greater than or Equal to (%): 90 Routine Lab Work: CBC, BMP, - - Once weekly Code Status: Full Code - Wound(s) BLE ARMS Wound Type: Abrasion - Suggestions for Active Care Change Position every (hours): 2 Times a day to sit in chair: 3 - Therapies Physical Therapy: Eval and Treat Occupational Therapy: Eval and Treat - Problem/Diagnosis (1) Benign essential hypertension Status: Chronic Current Visit: No (2) Gastroesophageal reflux disease Status: Chronic Current Visit: No (3) Coronary artery disease Status: Chronic Current Visit: No (4) Alzheimer's disease Status: Chronic Current Visit: No (5) Hyperlipidemia Status: Chronic Current Visit: No (6) Anxiety Status: Chronic Current Visit: No (7) Elevated troponin Status: Acute Comment: ACS ruled out Current Visit: Yes - Allergies/Procedures Done in Hospital Allergies/Adverse Reactions: Allergies codeine Allergy (Unverified 12/14/17 01:55) Rash NSAIDS (Non-Steroidal Anti-Inflamma Allergy (Unverified 12/14/17 01:55) Rash Penicillins Allergy (Unverified 12/14/17 01:55) Rash solifenacin [From Vesicare] Allergy (Unverified 12/14/17 01:55) Unknown Sulfa (Sulfonamide Antibiotics) Allergy (Verified 12/14/17 01:55) Unknown Procedures: - - Stress echo - Type of Care/Length of Stay Estimated LOS: More Than 30 Days Type of Care Needed: Skilled Rehab Potential: Fair Prognosis: Fair - Additional Orders/Day of Discharge H AND P will serve as current which was dated: 12/14/17 Day of Discharge: 12/14/17 - Dietary and Speech Recommendations Dietitian Recommendations/Changes: Recommend liberalizing diet to regular d/t hx of Alzheimer's. Recommend ONS if PO diet <50% tray consumed. - Follow Up Care Primary Care Physician: Sena Cheatham DO [Primary Care Provider] - Please follow up with your Primary Care Physician in: 1 Week 12/14/17 1455 <Electronically signed by Estelita GERMANC> Date Estelita GERMANC 12/14/17 1456<Electronically signed by Rajat Murrell MD> Cosigner Signature: Date Rajat Murrell MD CC: Sena Cheatham DO BEDSIDE GLUCOSE Collected: 12/14/2017 Status: F Source: [place] 11:19 AM [facility] REPOSITORY TYPE CODE TESTS RESULT OUT OF RANGE REFERENCE UNITS LAB L501.080 70-110 mg/dL Normal BEDSIDE GLU 107 Result Comment: MANAGEMENT OF PATIENT CARE PER NURSING PROTOCOL Performed By: #### L501.080 #### [facility] Point of Care [address] [place] [address] STRESS TEST ECHO W/O Observed: 12/14/2017 Status: F Source: [place] CONTRAST 10:50 AM [facility] REPOSITORY [facility] Cardiovascular Services [address] [place] [address] Stress Test Echo w/o Contrast MR#: [id number] Acct: [id number] Name: MIGUELKATTY Rep #: [id number] : 1940 77 From: Bari Buckner MD Primary Care: Sena Cheatham DO Status: ADM TELLO Ordering Dr: Vini Greenberg MD Sex: F C Reason For Study: Elevated Troponin, CAD Stress Results Protocol: Dobutamine Stress Echo Maximum Predicted HR: 143 bpm Target HR: 122 bpm % Maximum Predicted HR: 85 % DurationHeart Rate Stage (mm:ss) (bpm) BP Comment Baseline 62 150/98No Chest Pain DSE 10 MCG 3:00 63 158/97No Chest Pain DSE 20 MCG 3:00 87 162/99No Chest Pain DSE 30 MCG 3:00 110 125/77No Chest Pain DSE 40 MCG 3:19 122 108/64No Chest Pain Recovery 98 111/68No Chest Pain Stress Duration: 12:19 mm:ss Maximum Stress HR: 122 bpm METS: 1 Baseline Echocardiogram Findings The estimated ejection fraction is 65 %. Stress Echo Wall motion Data Resting WM Intermediate WM Stress WM Resting Wall Motion No regional wall motion abnormalities noted. EKG Data The baseline ECG displays normal sinus rhythm. The patient was titrated from 10 mcg to a maximum of 40 mcg of dobutamine during the stress. The maximum heart rate attained was 122 beats per minute. This was 85% of maximum predicted heart rate. During dobutamine infusion, there were no ST or T wave changes noted to suggest ischemia. No clinical angina was noted. No arrhythmias noted. Interpretation Summary The estimated ejection fraction is 65 %. Normal, adequate, dobutamine echocardiogram. Negative for ischemia by EKG and echocardiographic criteria. No anginal symptoms noted. No arrhythmias noted. Test terminated due to attainment of target heart rate. Appropriate blood pressure response to dobutamine. Final LVEF is 75%. No complications. Ordering Physician: Vini Greenberg Referring Physician: Bari Buckner Performed By: Hillary Rubio, SARAH, RVT 12/14/17 1049 Date Bari Buckner MD CC: Rajat Murrell MD; Sena Cheatham DO; Vini Greenberg MD Date Dictated: 12/14/17 0808 Date Transcribed: 12/14/171048 [employer] Network Architect: Signed PROTHROMBIN TIME W/INR Collected: 12/14/2017 Status: F Source: [place] 8:08 AM [facility] REPOSITORY TYPE CODE TESTS RESULT OUT OF RANGE REFERENCE UNITS LAB L300.4150 11.7-14.9 SECONDS Normal PROTIME 13.1 LAB L300.4200 Normal INR 1.0 Performed By: #### L300.3900, L300.4310 #### [facility] [address] [place], [address] PARTIAL THROMBOPLAST Collected: 12/14/2017 Status: F Source: [place] TIME 8:08 AM [facility] REPOSITORY TYPE CODE TESTS RESULT OUT OF RANGE REFERENCE UNITS LAB L300.4310 24.1-36.2 Seconds Normal PTT 33.4 Performed By: #### L300.3900, L300.4310 #### [facility] [address] [place], [address] TROPONIN-I Collected: 12/14/2017 Status: F Source: [place] 8:08 AM [facility] REPOSITORY Order Comment: 'TROP' Serial specimen #1, #2 or #3: 3 TYPE CODE TESTS RESULT OUT OF RANGE REFERENCE UNITS LAB L501.4010 <0.045 ng/mL High 0.168 TROPONIN-I Result Comment: TROPONIN-I EXPECTED VALUES <0.045 Negative 0.045 - 0.590 Consistent with Cardiac Damage > OR = 0.600 Critical Value Not every elevated troponin is indicative of [place]. These values should be used with clinical judgement in examining the patient's clinical picture for diagnosis. To establish a diagnosis of [place] versus myocardial injury, there must be a demonstrated rise and/or fall in the troponin values, in addition to ischemic symptoms, EKG changes, new regional wall motion abnormality, and/or angiographical evidence. PLEASE NOTE: REFERENCE RANGES EDITED 17 Performed By: #### L501.4010 #### [facility] [address] [place], [address] EMERGENCY DEPARTMENT Observed: 12/14/2017 Status: F Source: [place] SUMMARY 7:24 AM [facility] REPOSITORY [facility] Medical Records Department [address] [place] [address] Emergency Department Summary 12/14/17 0222 MR#: [id number] Acct: [id number] Name: KATTY MIGUEL Rep #: [id number] : 1940 77 From: Dipesh Hurd MD PCP: Sena Cheatham DO Status: ADM TELLO - ER Visit Summary Date of Service: 12/14/17 Chief Complaint: Anxiety History of Present Illness: The patient is a 77 F with anxiety and palpitations. She was in bed she is almost asleep and she developed palpitations. She called the EMS. She is much improved although she still feels some anxiety. She has no chest pain fever chills no abdominal pain. No nausea or vomiting. She has no prior history of this although she has anxiety this was just somewhat worse. Physical Examination: Not appear in acute distress. Moist mucous membranes, no obvious facial deformity No C-spine tenderness supple neck. Regular rate and rhythm without any obvious murmurs Clear lungs bilaterally speaking in full sentences without any obvious respiratory distress Abdomen soft and nontender no guarding or rebound Moves all extremities without any difficulty or pain. Skin does not show any obvious rashes or lesions, no trauma. Alert oriented 3 with no gross focal deficit She does appear somewhat anxious. Emergency Department Course and Treatment: Patient was monitored she does not have any arrhythmias on monitor, EKG showed nonspecific ST changes, troponin was intermediate, my worry is for a cardiac event she either had an arrhythmia or coronary occlusion, she will need admission and further cardiac workup. Disposition: Admit to the hospital in stable condition Impression: Palpitations Elevated troponin This note was generated with [employer] dictation software. It may contain incorrect words, spelling, and punctuation that were not noted in review of the chart prior to signing ED Disposition - Plan for ED Patient: Chief Complaint: Anxiety Referrals: Sena Cheatham DO [Primary Care Provider] - What to do if you have Problems For any increased pain, shortness of breath, bleeding, nausea or vomiting, chest pain, or any unexpected problems, contact your Primary Care Provider. Call [facility] ([phone]) or report to the closest Emergency Room. Call 911 if necessary. 12/14/17 0724 <Electronically signed by Dipesh Hurd MD> Date Dipesh Hurd MD Cosigner Signature (If Indicated): Date CC: Sena Cheatham DO BEDSIDE GLUCOSE Collected: 12/14/2017 Status: F Source: [place] 6:09 AM [facility] REPOSITORY TYPE CODE TESTS RESULT OUT OF RANGE REFERENCE UNITS LAB L501.080 70-110 mg/dL Normal BEDSIDE GLU 105 Result Comment: MANAGEMENT OF PATIENT CARE PER NURSING PROTOCOL Performed By: #### L501.080 #### [facility] Point of Care [address] [place] [address] LIPID PROFILE Collected: 12/14/2017 Status: F Source: [place] 5:40 AM [facility] REPOSITORY Order Comment: 'TROP' Serial specimen #1, #2 or #3: 2 TYPE CODE TESTS RESULT OUT OF RANGE REFERENCE UNITS LAB L501.4900 200 mg/dL Normal CHOL 184 Result Comment: <200 mg/dL Desirable 200-240 mg/dL Borderline >240 mg/dL High Risk LAB L501.5000 mg/dL Normal TRIG 83 Result Comment: The drugs N-Acetylcysteine and Metamizole may falsely depress this assay. Serum Triglycerides Reference Interval Normal <150 mg/dL Borderline high 150 - 199 mg/dL High 200 - 499 mg/dL Very High > or = 500 mg/dL LAB L501.6400 mg/dL Normal HDL 77 Result Comment: The drugs N-Acetylcysteine and Metamizole may falsely depress this assay. Reference Range HDL <40 mg/dL Low HDL Cholesterol HDL >or= 60 mg/dL High HDL Cholesterol LAB L501.6500 0-130 mg/dL Normal LDL 90 LAB L501.6600 5-40 mg/dL Normal VLDL 17 Performed By: #### L500.4100, L501.4010, L501.9520 #### [facility] [address] [place], [place], [address] TROPONIN-I Collected: 12/14/2017 Status: F Source: [place] 5:40 AM [facility] REPOSITORY Order Comment: 'TROP' Serial specimen #1, #2 or #3: 2 TYPE CODE TESTS RESULT OUT OF RANGE REFERENCE UNITS LAB L501.4010 <0.045 ng/mL High 0.177 TROPONIN-I Result Comment: TROPONIN-I EXPECTED VALUES <0.045 Negative 0.045 - 0.590 Consistent with Cardiac Damage > OR = 0.600 Critical Value Not every elevated troponin is indicative of [place]. These values should be used with clinical judgement in examining the patient's clinical picture for diagnosis. To establish a diagnosis of [place] versus myocardial injury, there must be a demonstrated rise and/or fall in the troponin values, in addition to ischemic symptoms, EKG changes, new regional wall motion abnormality, and/or angiographical evidence. PLEASE NOTE: REFERENCE RANGES EDITED 17 Performed By: #### L500.4100, L501.4010, L501.9520 #### [facility] [address] [place], [address] THYROID STIM HORMONE Collected: 12/14/2017 Status: F Source: [place] (TSH) 5:40 AM [facility] REPOSITORY Order Comment: 'TROP' Serial specimen #1, #2 or #3: 2 TYPE CODE TESTS RESULT OUT OF RANGE REFERENCE UNITS LAB L501.9520 0.358-3.74 uIU/mL Normal TSH 2.21 Performed By: #### L500.4100, L501.4010, L501.9520 #### [facility] [address] [place], [address] BNP,B-TYPE NATRIURETIC Collected: 12/14/2017 Status: F Source: [place] PEPT[place] 5:40 AM [facility] REPOSITORY TYPE CODE TESTS RESULT OUT OF RANGE REFERENCE UNITS LAB L503.6620 0-100 pg/mL Normal B-TYPE 46.6 NGHIA PEP Performed By: #### L503.6620 #### [facility] [address] [place], [address] CBC W/DIFF, AUTOMATED Collected: 12/14/2017 Status: F Source: [place] 2:42 AM [facility] REPOSITORY TYPE CODE TESTS RESULT OUT OF RANGE REFERENCE UNITS LAB L100.1000 4.4-11.0 K/mm3 Normal WBC 6.2 LAB L100.1200 4.2-5.4 M/mm3 Normal RBC 4.91 LAB L100.1300 12.0-15.0 g/dl High HGB 15.3 LAB L100.1400 37-47 % Normal HCT 45.4 LAB L100.1500 81-99 fL Normal MCV 92.5 LAB L100.1600 27.0-32.0 pg Normal MCH 31.2 LAB L100.1700 32-36 g/gl Normal MCHC 33.7 LAB L100.1810 11.6-14.6 % Normal RDW CV 12.3 LAB L100.1820 35.1-43.9 fl Normal RDW SD 40.9 LAB L100.1900 150-450 K/mm3 Normal PLT 227 LAB L100.2000 6.2-12.0 fl Normal MPV 10.3 LAB L100.2100 47-70 % Normal NEUT% 56.4 LAB L100.2200 19-41 % Normal LY% 28.8 LAB L100.2300 0-10 % High MONO% 11.5 LAB L100.2400 0-5 % Normal EO% 2.3 LAB L100.2500 0-1 % Normal BASO% 0.8 LAB L100.2550 0.0-0.9 % Normal IM GRAN % 0.200 Result Comment: IG% - Immature Granulocytes (promyelocytes, myelocytes and metamyelocytes) > 1% indicates that a LEFT SHIFT is Present. LAB L100.2620 2.0-7.7 X10 3/uL Normal Absolute Neut 3.5 LAB L100.2720 0.83-4.51 X10 3/ul Normal Absolute Lymph 1.78 Performed By: #### L100.0100 #### [facility] [address] [place], [address] BASIC METABOLIC Collected: 12/14/2017 Status: F Source: [place] PROFILE (WESTERN [facility] 2:42 AM [facility] REPOSITORY TYPE CODE TESTS RESULT OUT OF RANGE REFERENCE UNITS LAB L501.0100 74-106 mg/dL Normal GLU 98 Result Comment: Please note revised GLUCOSE reference range effective 2017. LAB L501.1000 7-18 mg/dL Normal BUN 8 LAB L501.1100 0.55-1.02 mg/dL Normal CREAT,SERUM 0.94 Result Comment: The validity of the calculated GFR AND GFRAA in patients over 70 years has not been determined. Clinical correlation is essential. LAB L501.1110 >60 mL/min Normal EST GFR 61 Result Comment: Non- GFR Calc LAB L501.1115 >60 mL/min Normal EST GFR - AA 74 Result Comment: GFR Calc LAB L501.1255 ml/min Normal Estimated CRCL 46.92 LAB L501.1300 10-20 RATIO Low BUN/CRE 8.5 LAB L501.2200 8.5-10 mg/dL Normal .1 CA 9.0 LAB L501.5300 136-14 mmol/L Normal 5 NA 140 LAB L501.5600 3.5-5. mmol/L Normal 1 K 3.7 LAB L501.5900 98-107 mmol/L Normal CL 102 LAB L501.6100 21.0-3 mmol/L Normal 2.0 CO2 30.0 LAB L501.6200 5-15 Normal GAP 8 Performed By: #### L500.2500, L501.4010 #### [facility] [address] [place], [place], [address] TROPONIN-I Collected: 12/14/2017 Status: F Source: [place] 2:42 AM [facility] REPOSITORY TYPE CODE TESTS RESULT OUT OF RANGE REFERENCE UNITS LAB L501.4010 <0.045 ng/mL High 0.176 TROPONIN-I Result Comment: TROPONIN-I EXPECTED VALUES <0.045 Negative 0.045 - 0.590 Consistent with Cardiac Damage > OR = 0.600 Critical Value Not every elevated troponin is indicative of W[place]. These values should be used with clinical judgement in examining the patient's clinical picture for diagnosis. To establish a diagnosis of WY versus myocardial injury, there must be a demonstrated rise and/or fall in the troponin values, in addition to ischemic symptoms, EKG changes, new regional wall motion abnormality, and/or angiographical evidence. PLEASE NOTE: REFERENCE RANGES EDITED 17 Performed By: #### L500.2500, L501.4010 #### [facility] [address] [place], [place], [address] CHEST 1 VIEW Observed: 12/14/2017 Status: F Source: [place] (PORTABLE) 2:22 AM [facility] Imaging Services [address] [place] [address] Chest 1 View (Portable) MR#: [id number] Acct: [id number] Name: KATTY MIGUEL Rep #: [id number] : 1940 F 77 From: Edilberto Scott MD PCP: Sena Cheatham DO Status: REG ER Study: Chest 1 View (Portable) Date of Exam: 12/14/17 Exam# [id number] Ordering Dr: Dipesh Hurd MD STUDY: X-RAY CHEST REASON FOR EXAM: Female, 77 years old. Cough TECHNIQUE: 1 view COMPARISON: July 17, 2017 FINDINGS: The heart is normal in size. The aorta is tortuous. There is no acute pneumonia or failure and no pleural effusions. Mild hyperinflation of the upper half of the lungs. Normal visualized thoracic spine. Normal visualized ribs, clavicles, and shoulders. There is no demonstrated abnormality of the visualized soft tissue structures of the upper abdomen. RAD/Chest 1 View (Portable) IMPRESSION: Mild COPD. No acute findings in the lungs. A tortuous aorta Electronically Signed: Edilberto Scott MD at 3:06 EST Tel , Service support , CC: Sena Cheatham DO; Dipesh Hurd MD [employer] Network Architect: Signed DOWNTIME REPORT Observed: 07/25/2017 Status: F Source: [place] 1:43 PM [facility] Medical Records Department [address] [place] [address] Downtime Report MR#: [id number] Acct: [id number] Name: MYRIAMKATTY Chowdhury Rep #: [id number] : 1940 76 From: Wily Tang MD PCP: Sena Cheatham DO Status: DEP ER This patient was seen during an EMR downtime July 09, 2017 - July 16, 2017. This patient may have a combination of paper and electronic documentation or all paper documentation. All documentation is viewable within the e-chart portion of [employer] for each patient visit. 12 LEAD ELECTROCARDIOGRAM Observed: 07/23/2017 Status: F Source: [place] 8:43 AM [facility] Cardiovascular Services [address] [place] [address] 12 Lead EKG 07/17/17 0017 MR#: [id number] Acct: [id number] Name: KATTY MIGUEL Luciana Rep #: [id number] : 1940 76 From: Jalen East MD Attending Dr: Status: DEP ER Ordering Dr: Germán Acuna MD Date: 07/17/17 Location: ED Sex: F C Admitted: Test Reason : MENTAL STAT CHANGE Blood Pressure : / mmHG Vent. Rate : 076 BPM Atrial Rate : 076 BPM P-R Int : 186 ms QRS Dur : 084 ms QT Int : 384 ms P-R-T Axes : 072 035 076 degrees QTc Int : 432 ms Normal sinus rhythm Normal ECG Confirmed by JALEN EAST MD ([id number]), film editor supervisor YESIKA TANG ([id number]) on 07/18/2017 5:19:44 PM Referred By: DR ACUNA Confirmed By:JALEN EAST MD 07/18/17 1719 Date Jalen East MD CC: Sena Cheatham DO; Germán Acuna MD Signed EMERGENCY DEPARTMENT Observed: 07/20/2017 Status: F Source: [place] SUMMARY 5:54 AM [facility] Medical Records Department [address] [place] [address] Emergency Department Summary 07/20/17 0338 MR#: [id number] Acct: [id number] Name: KATTY MIGUEL Luciana Rep #: [id number] : 1940 76 From: Dev Pelaez MD PCP: Sena Cheatham DO Status: DEP ER - ER Visit Summary Date of Service: 07/20/17 Chief Complaint: [] Shortness of breath and wheezing History of Present Illness: The patient is a 76 F [] complaining of wheezing tonight. She woke up with wheezing and difficulty breathing. No cough. She has not been sick earlier. This came on just tonight. She has a history of COPD by chart review. She denies any cold symptoms. She does still smoke. She did require BiPAP in 2014 when she was admitted for COPD exacerbation. No home treatment Physical Examination: [] Vital signs reviewed General: Well-nourished well-developed Head: Normocephalic atraumatic Eyes: Pupils equal round and reactive to light extraocular movements intact ENT: TMs clear no hemotympanum no trauma Neck: Nontender full range of motion Cardiovascular: Regular rate rhythm no murmurs normal S1-S2 Respiratory: To moderate respiratory distress. Diffuse wheezing throughout all lung madden. Able to speak in small sentences. No accessory muscle use Abdomen: Soft nontender nondistended normal bowel sounds no masses Back: Nontender no CVA tenderness Extremities: Nontender active range of motion 4 extremities no trauma Skin: Normal color no trauma Neuro alert oriented cranial nerves II through XII intact normal strength sensation reflexes Test Results: [] Emergency Department Course and Treatment: [] Patient given stacked breathing treatments albuterol 3 Atrovent 1. Given prednisone. Placed on oxygen. Reevaluation after treatments the patient is asymptomatic resting comfortably. I feel this is more COPD with bronchospasm. I do not think she needs antibiotics. Will be discharged with prednisone and albuterol. Treatment Plan: [] Disposition: [] Impression: [] COPD with bronchospasm This note was generated with [employer] dictation software. It may contain incorrect words, spelling, and punctuation that were not noted in review of the chart prior to signing ED Disposition - Plan for ED Patient: Chief Complaint: Shortness of Breath Referrals: Sena Cheatham DO [Primary Care Provider] - What to do if you have Problems For any increased pain, shortness of breath, bleeding, nausea or vomiting, chest pain, or any unexpected problems, contact your Primary Care Provider. Call [facility] ([phone]) or report to the closest Emergency Room. Call 911 if necessary. 07/20/17 9018 <Electronically signed by Dev Pelaez MD> Date __ Dev Pelaez MD Cosigner Signature (If Indicated): Date CC: Sena Cheatham DO DISCHARGE INSTRUCTION Observed: 07/20/2017 Status: F Source: [place] 5:54 AM [facility] REPOSITORY [facility] Medical Records Department [address] [place] [address] Discharge Instruction 07/20/17 0437 MR#: [id number] Acct: [id number] Name: KATTY MIGUEL Rep #: [id number] : 1940 76 From: Dev Pelaez MD PCP: Sena Cheatham DO Status: DEP ER ED Disposition - Plan for ED Patient: Disposition: Home or Assisted Living Chief Complaint: Shortness of Breath Instructions: ED Bronchitis Asthmatic Prescriptions: Albuterol Inhaler [Ventolin Hfa] 2 - 4 puff INHALATION Q4H PRN PRN #1 inhaler PRN Reason: Wheezing Prednisone [Deltasone] 40 mg PO DAILY #10 tab Referrals: Sena Cheatham DO [Primary Care Provider] - What to do if you have Problems For any increased pain, shortness of breath, bleeding, nausea or vomiting, chest pain, or any unexpected problems, contact your Primary Care Provider. Call [facility] ([phone]) or report to the closest Emergency Room. Call 911 if necessary. 07/20/17 0585 <Electronically signed by Dev Pelaez MD> Date Dev Pelaez MD Cosigner Signature (If Indicated): Date _ CC: Sena Pedrazarosa elena ATK[facility] EMERGENCY DEPARTMENT Observed: 07/17/2017 Status: F Source: [place] SUMMARY 1:22 AM [facility] REPOSITORY [facility] Medical Records Department [address] [place] [address] Emergency Department Summary 07/17/17 0119 MR#: [id number] Acct: [id number] Name: KATTY MIGUEL Rep #: [id number] : 1940 76 From: Germán Acuna MD PCP: Sena Cheatham DO Status: PRE ER - ER Visit Summary Date of Service: 07/17/17 Chief Complaint: Neighbor called paramedics because Katty presented to her mobile home confused. History of Present Illness: The patient is a 76 F with history of dementia per old records. Daughter did call in after she was evaluated and states this is her normal mental status. Patient is not a good informant secondary dementia. She is oriented to person and place only. She has no complaints. Prior records are reviewed. She had a significant workup earlier this year and the cause of her confusion was felt to be secondary dementia as her daughter informed the nurse when she called in. Physical Examination: Vital signs are noted. She is a pleasant elderly woman in no distress. Head is atraumatic normocephalic. Pupils are equal round reactive. Extraocular muscles are intact. TMs are pearly white with landmarks noted. Nares patent with no drainage. Posterior pharynx without erythema or exudate. Uvula is midline. There is no dysphonia or dysphasia. Trachea is midline. There is no stridor with auscultation of the neck. Heart is regular without murmur, gallop or rub. S1 and S2 are normal. Lungs are clear to auscultation with good movement of air bilaterally. Abdomen is soft nontender with normal bowel sounds. There is no CVA tenderness noted. Lower extremity exam is remarkable for mild edema. Motor and sensory intact. DTRs are symmetric with no clonus or Babinski. Cranial 2 through 12 are intact. Test Results: Metabolic infectious workup was undertaken. Because she was slightly tachypneic chest x-ray and EKG were obtained since she is elderly to evaluate for pneumonia, CHF acute cardiac ischemia. EKG normal sinus rhythm rate of 76 and normal chest x-ray revealed no acute process. White count normal. Electronic panel revealed slight decrease in sodium and chloride of 132 and 96 respectively. UA is unremarkable. Emergency Department Course and Treatment: Evaluation for change in mental status. Metabolic infectious workup was undertaken. Treatment Plan: Contact daughter to take her home and consult to case management Disposition: Discharge to home with daughter Impression: Change in mental status secondary to dementia This note was generated with [employer] dictation software. It may contain incorrect words, spelling, and punctuation that were not noted in review of the chart prior to signing ED Disposition - Plan for ED Patient: Disposition: Home or Assisted Living Chief Complaint: Mental Status Change Instructions: ED Dementia Caregiver Support Referrals: Sena Cheatham, DO [Primary Care Provider] - As Needed What to do if you have Problems For any increased pain, shortness of breath, bleeding, nausea or vomiting, chest pain, or any unexpected problems, contact your Primary Care Provider. Call [facility] ([phone]) or report to the closest Emergency Room. Call 911 if necessary. 07/17/17 0122 <Electronically signed by Germán Acuna MD> Date Germán Acuna MD Cosigner Signature (If Indicated): Date CC: Sena Cheatham DO URINALYSIS, COMPLETE Collected: 07/17/2017 Status: F Source: [place] 12:38 AM [facility] REPOSITORY Order Comment: How was Urine Obtained? CATHETER SPECIMEN TYPE CODE TESTS RESULT OUT OF RANGE REFERENCE UNITS LAB L400.3000 Yellow COLOR Normal Yellow LAB L400.3050 Clear Normal CLARITY Clear LAB L400.3200 Normal mg/dl Normal GLUCOSE, UR Normal LAB L400.3300 Negative mg/dL Normal BILIRUBIN URINE Negative LAB L400.3400 Negative mg/dl High 15 KETONE UR LAB L400.3465 1.002-1.030 Normal SP.GR. DIPSTX 1.020 LAB L400.3550 5.0 - 8.0 pH UR Normal 5.0 LAB L400.3600 Negative mg/dl High PROT 15 DIPSTX LAB L400.3700 Normal mg/dl Normal UROBILI Normal LAB L400.3750 Negative Normal NITRITE UR Negative LAB L400.3780 Negative /ul High 10 OCCULT BLOOD-UR LAB L400.3800 Negative /ul High LEUK 25 ESTERASE LAB L400.4050 0-5 /hpf WBC Normal 0-5 SEEN LAB L400.4100 0-5 /hpf Normal RBC-UA 0-5 SEEN LAB L400.4150 5-10 /hpf SQUAM Normal EPI 0-5 SEEN LAB L400.4300 None Seen /hpf 0 Normal BACTERIA SEEN LAB L400.4350 <or=2+ /hpf 0 Normal MUCUS, URINE SEEN Performed By: #### L400.0001 #### [facility] [address] [place], [address] CBC W/DIFF, AUTOMATED Collected: 07/17/2017 Status: F Source: [place] 12:15 AM [facility] REPOSITORY TYPE CODE TESTS RESULT OUT OF RANGE REFERENCE UNITS LAB L100.1000 4.4-11.0 K/mm3 Normal WBC 7.9 LAB L100.1200 4.2-5.4 M/mm3 Normal RBC 4.83 LAB L100.1300 12.0-15.0 g/dl Normal HGB 15.0 LAB L100.1400 37-47 % Normal HCT 44.5 LAB L100.1500 81-99 fL Normal MCV 92.1 LAB L100.1600 27.0-32.0 pg Normal MCH 31.1 LAB L100.1700 32-36 g/gl Normal MCHC 33.7 LAB L100.1810 11.6-14.6 % Normal RDW CV 12.1 LAB L100.1820 35.1-43.9 fl Normal RDW SD 41.0 LAB L100.1900 150-450 K/mm3 Normal PLT 215 LAB L100.2000 6.2-12.0 fl Normal MPV 9.9 LAB L100.2100 47-70 % Normal NEUT% 66.4 LAB L100.2200 19-41 % Normal LY% 23.9 LAB L100.2300 0-10 % Normal MONO% 8.8 LAB L100.2400 0-5 % Normal EO% 0.4 LAB L100.2500 0-1 % Normal BASO% 0.4 LAB L100.2550 0.0-0.9 % Normal IM GRAN % 0.100 Result Comment: IG% - Immature Granulocytes (promyelocytes, myelocytes and metamyelocytes) > 1% indicates that a LEFT SHIFT is Present. LAB L100.2620 2.0-7.7 X10 3/uL Normal Absolute Neut 5.3 LAB L100.2720 0.83-4.51 X10 3/ul Normal Absolute Lymph 1.90 Performed By: #### L100.0100 #### [facility] [address] [place], [place], [address] BASIC METABOLIC Collected: 07/17/2017 Status: F Source: [place] PROFILE (BMP) 12:15 AM [facility] REPOSITORY TYPE CODE TESTS RESULT OUT OF RANGE REFERENCE UNITS LAB L501.0100 74-106 mg/dL High GLU 111 Result Comment: Fasting Glucose result from 100 to 125 mg/dL suggests IMPAIRED HOMEOSTASIS per A.D.A. criteria. Please note revised GLUCOSE reference range effective 2017. LAB L501.1000 7-18 mg/dL Normal BUN 14 LAB L501.1100 0.55-1.02 mg/dL Normal CREAT,SERUM 0.85 Result Comment: The validity of the calculated GFR AND GFRAA in patients over 70 years has not been determined. Clinical correlation is essential. LAB L501.1110 >60 mL/min Normal EST GFR 69 Result Comment: Non- GFR Calc LAB L501.1115 >60 mL/min Normal EST GFR - AA 83 Result Comment: GFR Calc LAB L501.1300 10-20 RATIO Normal BUN/CRE 16.4 LAB L501.2200 8.5-10.1 mg/dL CA Normal 9.2 LAB L501.5300 136-145 mmol/L Low NA 132 LAB L501.5600 3.5-5.1 mmol/L K Normal 4.0 Result Comment: Slight Hemolysis, Result may be falsely increased. LAB L501.5900 98-107 mmol/L Low CL 96 LAB L501.6100 21.0-32.0 mmol/L Normal CO2 30.0 LAB L501.6200 5-15 Normal GAP 6 Performed By: #### L500.2500 #### [facility] [address] [place], [address] CHEST PA AND LATERAL Observed: 07/17/2017 Status: F Source: [place] 12:03 AM [facility] REPOSITORY [facility] Imaging Services [address] [place] [address] Chest PA and Lateral MR#: [id number] Acct: [id number] Name: KATTY MIGUEL Rep #: [id number] : 1940 F 76 From: Shaan Chi MD PCP: Sena Cheatham DO Status: DEP ER Study: Chest PA and Lateral Date of Exam: 07/17/17 Exam# [id number] Ordering Dr: Germán Acuna MD STUDY: X-RAY CHEST REASON FOR EXAM: Female, 76 years old. Altered mental status and weakness. TECHNIQUE: PA and lateral views of the chest. COMPARISON: 02/19/2017 FINDINGS: Lungs are hyperexpanded. There is coarsened prominence of interstitial lung markings at bilateral lung bases, unchanged. No new confluent airspace opacity. No pleural effusion or pneumothorax. Normal size heart. Normal mediastinum and grazyna. Normal visualized pulmonary arteries. There is atherosclerotic calcification of the aortic arc. Kyphotic deformity of the thoracic spine. Multilevel degenerative change. Normal visualized ribs, clavicles, and shoulders. Postoperative change from endoluminal stent graft repair of an infrarenal abdominal aortic aneurysm. RAD/Chest PA and Lateral IMPRESSION: Chronic interstitial change with no evidence of acute cardiopulmonary disease. Electronically Signed: Shaan Chi MD at 2:33 EDT Tel , Service support , CC: Sena Cheatham DO; Germán Acuna MD [employer] Network Architect: Signed EMERGENCY DEPARTMENT Observed: 05/28/2017 Status: F Source: [place] SUMMARY 12:41 PM [facility] REPOSITORY [facility] Medical Records Department [address] [place] [address] Emergency Department Summary 05/19/172055 MR#: [id number] Acct: [id number] Name: KATTY MIGUEL Rep #: [id number] : 1940 76 From: Germán Acuna MD PCP: Sena Cheatham DO Status: DEP ER - ER Visit Summary Date of Service: 05/19/17 Chief Complaint: She believes she has a clot in her left index finger going up her left forearm History of Present Illness: The patient is a 76 F with history of dementia who was brought to the ER because she is insistent that she has a blood clot in her left index finger that is going up her forearm. She is uncertain how this occurred. She apparently lives alone. Daughter states she is within seconds away. Daughter states that she sets out her meds. Question the daughter regarding safety because she informed me that she was running around left the doors open etc. Patient is unreliable informant secondary to multi-infarct dementia. Physical Examination: Vital signs are remarkable for blood pressure of 119/115. Patient has no complaints. She is disoriented. This is normal. Daughter wishes no test to be done. She wishes for me to inform her mom she does not have a blood clot in her finger. Patient has a deep superficial burn to the left index finger. There is no evidence of infection. There is no lymphangitis. There is no epitrochlear or axillary lymphadenopathy. Axillary, median, radial and ulnar function intact. Test Results: None are indicated and none are wanted by daughter Emergency Department Course and Treatment: Wound dressing Treatment Plan: Appropriate home-going instructions Disposition: Discharged to home with daughter Impression: Partial thickness burn left index finger This note was generated with [employer] dictation software. It may contain incorrect words, spelling, and punctuation that were not noted in review of the chart prior to signing ED Disposition - Plan for ED Patient: Disposition: Home or Assisted Living Chief Complaint: Confusion Instructions: ED Burn Thermal D 1st 2nd Dressing Referrals: Sena Cheatham DO [Primary Care Provider] - 2 Days for wound check What to do if you have Problems For any increased pain, shortness of breath, bleeding, nausea or vomiting, chest pain, or any unexpected problems, contact your Primary Care Provider. Call [facility] ([phone]) or report to the closest Emergency Room. Call 911 if necessary. 05/19/17 2100 <Electronically signed by Germán Acuna MD> Date Germán Acuna MD Cosigner Signature (If Indicated): Date CC: Sena Cheatham DO BEDSIDE GLUCOSE Collected: 05/19/2017 Status: F Source: [place] 8:23 PM [facility] REPOSITORY TYPE CODE TESTS RESULT OUT OF REFERENCE UNITS RANGE LAB L501.080 70-110 mg/dL High BEDSIDE GLU 149 Result Comment: MANAGEMENT OF PATIENT CARE PER NURSING PROTOCOL Performed By: #### L501.080 #### [facility] Point of Care [address] [place] [address] CBC W/DIFF, AUTOMATED Collected: 03/02/2017 Status: F Source: [place] 5:20 AM [facility] REPOSITORY TYPE CODE TESTS RESULT OUT OF RANGE REFERENCE UNITS LAB L100.1000 4.4-11.0 K/mm3 Normal WBC 5.7 LAB L100.1200 4.2-5.4 M/mm3 Normal RBC 4.30 LAB L100.1300 12.0-15.0 g/dl Normal HGB 13.6 LAB L100.1400 37-47 % Normal HCT 41.1 LAB L100.1500 81-99 fL Normal MCV 95.6 LAB L100.1600 27.0-32.0 pg Normal MCH 31.6 LAB L100.1700 32-36 g/gl Normal MCHC 33.1 LAB L100.1810 11.6-14.6 % Normal RDW CV 12.4 LAB L100.1820 35.1-43.9 fl Normal RDW SD 42.2 LAB L100.1900 150-450 K/mm3 Normal PLT 216 LAB L100.2000 6.2-12.0 fl Normal MPV 10.6 LAB L100.2100 47-70 % Low NEUT% 45.3 LAB L100.2200 19-41 % Normal LY% 40.6 LAB L100.2300 0-10 % High MONO% 10.2 LAB L100.2400 0-5 % Normal EO% 2.6 LAB L100.2500 0-1 % High BASO% 1.1 LAB L100.2550 0.0-0.9 % Normal IM GRAN % 0.200 Result Comment: IG% - Immature Granulocytes (promyelocytes, myelocytes and metamyelocytes) > 1% indicates that a LEFT SHIFT is Present. LAB L100.2620 2.0-7.7 X10 3/uL Normal Absolute Neut 2.6 LAB L100.2720 0.83-4.51 X10 3/ul Normal Absolute Lymph 2.30 Performed By: #### L100.0100 #### [facility] [address] [place], [address] BASIC METABOLIC Collected: 03/02/2017 Status: F Source: [place] PROFILE (BMP) 5:20 AM [facility] REPOSITORY TYPE CODE TESTS RESULT OUT OF RANGE REFERENCE UNITS LAB L501.0100 70-110 mg/dL Normal GLU 83 LAB L501.1000 7-18 mg/dL Normal BUN 11 LAB L501.1100 0.55-1.02 mg/dL Normal 0.82 CREAT,SERUM Result Comment: The validity of the calculated GFR AND GFRAA in patients over 70 years has not been determined. Clinical correlation is essential. LAB L501.1110 >60 mL/min Normal EST GFR 72 Result Comment: Non- GFR Calc LAB L501.1115 >60 mL/min Normal EST GFR - AA 87 Result Comment: GFR Calc LAB L501.1255 ml/min Normal Estimated CRCL 54.64 LAB L501.1300 10-20 RATIO Normal BUN/CRE 13.4 LAB L501.2200 8.5-10 mg/dL Normal .1 CA 8.6 LAB L501.5300 136-14 mmol/L Normal 5 NA 140 LAB L501.5600 3.5-5. mmol/L Normal 1 K 4.3 LAB L501.5900 98-107 mmol/L Normal CL 104 LAB L501.6100 21.0-3 mmol/L Normal 2.0 CO2 31.0 LAB L501.6200 5-15 Normal GAP 5 Performed By: #### L500.2500 #### [facility] [address] [place], [address] DISCHARGE SUMMARY Observed: 02/28/2017 Status: F Source: [place] 8:40 PM [facility] REPOSITORY [facility] Medical Records Department [address] [place] [address] Discharge Summary 02/28/172037 MR#: [id number] Acct: [id number] Name: KATTY MIGUEL Rep #: [id number] : 1940 76 From: Mohit Wallace MD PCP: Rajat Coombs MD Status: ADM IN Y Location: [facility] [place] [address] Discharge Date and Diagnosis - Problem List Patient Problems: Active and Suspected Problems Encephalopathy (Acute) Date of Admission: 02/22/17 Date of Discharge: 03/03/17 - Primary Discharge Diagnosis Active and Suspected Problems Encephalopathy (Acute) - Secondary Discharge Diagnosis Chronic Problems Hyperlipidemia (Chronic) Alzheimer's disease (Chronic) Coronary artery disease (Chronic) AAA (abdominal aortic aneurysm) (Chronic) Depression (Chronic) Decreased appetite (Chronic) Insomnia (Chronic) CAD (coronary artery disease) (Chronic) 3 stents History of [place] (myocardial infarction) (Chronic) Aneurysm of infrarenal abdominal aorta (Chronic) HTN (hypertension) (Chronic) Anxiety (Chronic) Hospital Course and Treatment Imaging Results: 02/22/17 13:48 Diet: Regular Diet Food consistency:: Soft Liquid Consistency:: Regular/Thin Dietary Modifications:: Soft Diet Diet Comments: Supervision, small sips, seated upright. NO ADDED SALT Operations: None Procedures: None Summary of Care Provided: The patient is a 76 year old Female with below past medical history hospitalized for acute encephalopathy, etiology unknown, stroke ruled out, admitted to TCU for rehabilitation, strengthening. Will discharge home alone. Will have daughter to check in with patient. Discharge Diet: No Restrictions Discharge Activity: Return to Normal Activity, May Not Drive, Use Walker Weight Bearing Status: Weight bearing as tolerated Call your doctor if you observe: Fever of 101 or Higher, Inability to urinate, Inability to have a bowel movement, Shortness of breath, Chest pain, Uncontrolled pain Home Medications: Medications to take at Discharge Donepezil HCl [Aricept] 10 mg PO QHS 02/19/17 Mirtazapine 7.5 mg PO QHS 02/19/17 Pravastatin Sodium [Pravachol] 10 mg PO QHS 02/19/17 Aspirin 325 mg PO DAILY@0800 02/22/17 Cholecalciferol (VIT D3) [Vitamin D3] 2,000 unit PO DAILYCM 02/22/17 Amlodipine [Norvasc] 10 mg PO DAILY #30 tab 02/28/17 Valsartan [Diovan] 160 mg PO BID #60 tab 02/28/17 Following Prescrptions Were Given to Patient: Amlodipine [Norvasc] 10 mg PO DAILY #30 tab Valsartan [Diovan] 160 mg PO BID #60 tab Primary Care Physician: Rajat Coombs MD [Primary Care Provider] - Please follow up with your Primary Care Physician in: 1 week. Please Follow Up With: Dr. Devin Ventura When: 2 weeks. Disposition: Home Minutes spent on discharge:: 30 Patient Condition:: Stable Meaningful Use Info Meaningful Use Diagnoses (Choose all that apply): None applicable 02/28/172039 <Electronically signed by Mohit Wallace MD> Date Mohit Wallace MD Cosigner Signature (if applicable): Date CC: Rajat Coombs MD; Mohit Wallace MD Signed DISCHARGE INSTRUCTION Observed: 02/28/2017 Status: F Source: [place] 8:38 PM [facility] REPOSITORY [facility] Medical Records Department [address] [place] [address] Instructions for Home/Discharge Instructions 02/28/172034 MR#: [id number] Acct: [id number] Name: MIGUELKATTY Rep #: [id number] : 1940 76 From: Mohit Wallace MD PCP: Rajat Coombs MD Status: ADM IN - Discharge Diagnoses Current Active Problems: Current Active and Chronic Problems Encephalopathy (Acute) Hyperlipidemia (Chronic) Alzheimer's disease (Chronic) Coronary artery disease (Chronic) AAA (abdominal aortic aneurysm) (Chronic) Depression (Chronic) Decreased appetite (Chronic) Insomnia (Chronic) You will use the following diet at home:: No restrictions, Regular Your food should be the consistency of: Regular Your liquids should be the consistency of: Regular/Thin Discharge Activity: Return to Normal Activity, May Not Drive, Use Walker Weight Bearing Status: Weight bearing as tolerated Call your doctor if you observe: Fever of 101 or Higher, Inability to urinate, Inability to have a bowel movement, Shortness of breath, Chest pain, Uncontrolled pain Allergies/Adverse Reactions: Allergies Sulfa (Sulfonamide Antibiotics) Allergy (Verified 02/18/17 23:52) Unknown Medications to take at Discharge Donepezil HCl [Aricept] 10 mg PO QHS 02/19/17 Mirtazapine 7.5 mg PO QHS 02/19/17 Pravastatin Sodium [Pravachol] 10 mg PO QHS 02/19/17 Aspirin 325 mg PO DAILY@0800 02/22/17 Cholecalciferol (VIT D3) [Vitamin D3] 2,000 unit PO DAILYCM 02/22/17 Amlodipine [Norvasc] 10 mg PO DAILY #30 tab 02/28/17 Valsartan [Diovan] 160 mg PO BID #60 tab 02/28/17 The following prescriptions were given: Amlodipine [Norvasc] 10 mg PO DAILY #30 tab Valsartan [Diovan] 160 mg PO BID #60 tab Primary Care Physician: Rajat Coombs MD [Primary Care Provider] - Please follow up with your Primary Care Physician in: 1 week. Please Follow Up With: Dr. Devin Ventura When: 2 weeks. Proposed Discharge Date: 03/03/17 02/28/172037 <Electronically signed by Mohit Wallace MD> Date Mohit Wallace MD CC: Rajat Coombs MD CBC W/DIFF, AUTOMATED Collected: 02/23/2017 Status: F Source: [place] 5:35 AM [facility] REPOSITORY TYPE CODE TESTS RESULT OUT OF RANGE REFERENCE UNITS LAB L100.1000 4.4-11.0 K/mm3 Normal WBC 5.2 LAB L100.1200 4.2-5.4 M/mm3 Normal RBC 4.34 LAB L100.1300 12.0-15.0 g/dl Normal HGB 13.6 LAB L100.1400 37-47 % Normal HCT 41.5 LAB L100.1500 81-99 fL Normal MCV 95.6 LAB L100.1600 27.0-32.0 pg Normal MCH 31.3 LAB L100.1700 32-36 g/gl Normal MCHC 32.8 LAB L100.1810 11.6-14.6 % Normal RDW CV 12.4 LAB L100.1820 35.1-43.9 fl Normal RDW SD 42.1 LAB L100.1900 150-450 K/mm3 Normal PLT 211 LAB L100.2000 6.2-12.0 fl Normal MPV 10.8 LAB L100.2100 47-70 % Low NEUT% 46.0 LAB L100.2200 19-41 % Normal LY% 34.5 LAB L100.2300 0-10 % High MONO% 13.1 LAB L100.2400 0-5 % High EO% 5.2 LAB L100.2500 0-1 % Normal BASO% 1.0 LAB L100.2550 0.0-0.9 % Normal IM GRAN % 0.200 Result Comment: IG% - Immature Granulocytes (promyelocytes, myelocytes and metamyelocytes) > 1% indicates that a LEFT SHIFT is Present. LAB L100.2620 2.0-7.7 X10 3/uL Normal Absolute Neut 2.4 LAB L100.2720 0.83-4.51 X10 3/ul Normal Absolute Lymph 1.80 Performed By: #### L100.0100 #### [facility] [address] [place], [place], [address] BASIC METABOLIC Collected: 02/23/2017 Status: F Source: [place] PROFILE (BMP) 5:35 AM [facility] REPOSITORY TYPE CODE TESTS RESULT OUT OF RANGE REFERENCE UNITS LAB L501.0100 70-110 mg/dL High GLU 115 Result Comment: Fasting Glucose result from 110 to <126 mg/dL suggests IMPAIRED HOMEOSTASIS per A.D.A. criteria. LAB L501.1000 7-18 mg/dL Normal BUN 9 LAB L501.1100 0.55-1.02 mg/dL Normal CREAT,SERUM 0.91 Result Comment: The validity of the calculated GFR AND GFRAA in patients over 70 years has not been determined. Clinical correlation is essential. LAB L501.1110 >60 mL/min Normal EST GFR 64 Result Comment: Non- GFR Calc LAB L501.1115 >60 mL/min Normal EST GFR - AA 77 Result Comment: GFR Calc LAB L501.1255 ml/min Normal Estimated CRCL 49.24 LAB L501.1300 10-20 RATIO Low BUN/CRE 9.9 LAB L501.2200 8.5-10 mg/dL Normal .1 CA 8.7 LAB L501.5300 136-14 mmol/L Normal 5 NA 142 LAB L501.5600 3.5-5. mmol/L Normal 1 K 3.9 LAB L501.5900 98-107 mmol/L Normal CL 104 LAB L501.6100 21.0-3 mmol/L Normal 2.0 CO2 31.0 LAB L501.6200 5-15 Normal GAP 7 Performed By: #### L500.2500 #### [facility] [address] [place] [address], [id number] Observed: 02/22/2017 Status: C Source: [place] RESPIRATORY PANEL 9:14 PM [facility] MOLECULAR REPOSITORY RP PANEL ADENOVIRUS Not Detected HUMAN METAPHNEUMO Not Detected INFLUENZA A Not Detected INFLUENZA A (SUBTYPE H1) Not Detected INFLUENZA A (SUBTYPE H3) Not Detected INFLUENZA B Not Detected PARAINFLUENZA 1 Not Detected PARAINFLUENZA 2 Not Detected PARAINFLUENZA 3 Not Detected PARAINFLUENZA 4 Not Detected RHINOVIRUS Not Detected RSV A Not Detected RSV B Not Detected NAAT METHOD Testing was performed using nucleic acid amplification Performed By: #### M100.638 #### [facility] [address] [place], [place], [address] HISTORY AND PHYSICAL Observed: 02/22/2017 Status: F Source: [place] EXAM 8:27 PM [facility] REPOSITORY [facility] Medical Records Department [address] [place] [address] History and Physical 02/22/172008 MR#: [id number] Acct: [id number] Name: KATTY MIGUEL Rep #: [id number] : 1940 76 From: Mohit Wallace MD PCP: Rajat Coombs MD Status: ADM IN Y [place] [address] Problem List (1) Encephalopathy Status: Acute (2) Hyperlipidemia Status: Chronic (3) Alzheimer's disease Status: Chronic (4) Coronary artery disease Status: Chronic (5) AAA (abdominal aortic aneurysm) Status: Chronic (6) Depression Status: Chronic (7) Decreased appetite Status: Chronic (8) Insomnia Status: Chronic (9) HTN (hypertension) Status: Chronic (10) Anxiety Status: Chronic History of Present Illness Date of Admission: 02/22/17 Chief Complaint: Here for rehabilitation, strengthening, prior to discharge home alone. The patient is a 76 year old Female with below past medical history presented to [facility] 02/19/2017 with change in mental status. 02/19/2017 Chest X-ray tortuous aorta. 02/19/2017 EKG normal sinus rhythm, ST AND T wave abnormality. 02/19/2017 CT brain possible right internal capsule lacunar infarct. Hallucinations and bizarre behavior. History of mild dementia. Delirium 1 year ago with urinary tract infection. Troponin 0.08 chronic. ABG negative. 02/19/2017 Admit to Hospital. Consult Neurology and order imaging to evaluate for stroke. 02/19/2017 MRI brain tiny infarct right cerebellum. 02/19/2017 MRA head non-significant vascular disease [place]. 02/19/2017 MRA neck right carotid stenosis 50 to 70%. 02/22/2016 Dr. Galdamez recommends imaging for stroke, avoiding benzodiazepine. 02/20/2017 Echo Left ventricular systolic function normal. EF 65%. Right ventricular systolic pressure 31mm HG. 02/20/2017 CTA neck right carotid artery stenosis 50 - 69%. 02/20/2017 CTA head negative. Acute stroke ruled out by neurology. Dysphagia followed by speech therapy, supervised diet. Benzodiazepine discontinued. 02/22/2017 Admit to TCU for rehabilitation, strengthening, prior to discharge home alone. Past Medical History Past Medical History (Chronic Problems): Chronic Problems Hyperlipidemia (Chronic) Alzheimer's disease (Chronic) Coronary artery disease (Chronic) AAA (abdominal aortic aneurysm) (Chronic) Depression (Chronic) Decreased appetite (Chronic) Insomnia (Chronic) CAD (coronary artery disease) (Chronic) 3 stents History of [place] (myocardial infarction) (Chronic) Aneurysm of infrarenal abdominal aorta (Chronic) HTN (hypertension) (Chronic) Anxiety (Chronic) Allergies Sulfa (Sulfonamide Antibiotics) Allergy (Verified 02/18/17 23:52) Unknown Home Medications: Ambulatory Orders Medication Instructions Recorded Donepezil HCl [Aricept] 10 mg PO QHS 02/19/17 Mirtazapine 7.5 mg PO QHS 02/19/17 Pravastatin Sodium [Pravachol] 10 mg PO QHS 02/19/17 Surgical History: angioplasty - Cardiac stent x 3., - - Abdominal aortic aneurysm repair. Psychiatric History: Anxiety, Depression STOCK CLERK History: No pertinent STOCK CLERK history Lives: Alone Smoking Status: Heavy Smoker (>10/day) Tobacco Use: Cigarettes Alcohol: None Drugs: None - *Family History Paternal History Items: Cancer - Her father of lung cancer Maternal History Items: No pertinent history Review of Systems Constitutional: Denies: Chills, Fever, Weight Change HEENT: Denies: Head Aches, Sinus Congestion, Sinus Drainage Cardiovascular: Denies: Chest Pain, Palpitations Respiratory: Denies: Cough, Shortness of breath at rest, Sputum production Gastrointestinal: Denies: Abdominal Pain, Nausea, Vomiting Genitourinary: Denies: Dysuria Musculoskeletal: Denies: Joint Pain, Joint Tenderness Skin: Denies: Rash, Wounds Neurological: Denies: Numbness, Tingling, Focal weakness Psychiatric: Denies: Anxiety, Depression, Homicidal Ideations, Suicidal Ideations Hematologic/ Lymphatic: Denies: Easy Bruising, Easy Bleeding VTE Information - Inpt Only VTE Present on Admission: No VTE Mechan Device Prophylaxis: Knee High PIPPA Hose VTE Pharm Prophylaxis ordered?: Yes Patient Problems: Active and Suspected Problems Encephalopathy (Acute) - Physical Exam General: Alert, Oriented x3, Cooperative HEENT: Atraumatic, PERRLA, EOMI, Normocephalic Neck: Supple, No JVD, Negative Carotid Bruits Lungs: Clear to auscultation, Normal air movement Cardiovascular: Regular rate, No murmurs Abdomen: Bowel Sounds Present, Soft, Non Tender Extremities: No edema, Capillary Refill Less than 3 Seconds Skin: No rashes, No breakdown Musculoskeletal: No Tenderness to Palpation of Joints or Extremities Neurological: Cranial nerves II-XII grossly intact Psych/Mental Status: Normal Affect, Appropriate Vital Signs Temp Pulse Resp BP Pulse Ox 99.1 F 63 18 159/97 H 90 02/22/17 14:09 02/22/17 14:09 02/22/17 14:09 02/22/17 14:09 02/22/17 14:09 Oxygen Delivery Method Room Air Weight: 61.41 kg Body Mass Index (BMI) 21.8 Finger Stick Blood Glucose 114 Intake and Output for Last 24 Hours Intake Total 120 / 120 Balance 120 / 120 Assessment/Plan Active and Suspected Problems Encephalopathy (Acute) 76 year old female with below past medical history hospitalized for acute encephalopathy, etiology unknown, stroke ruled out, admitted to TCU for rehabilitation, strengthening, prior to discharge home alone. * Debility - PT/OT. * Pain - Tylenol 1000MG Q8H PRN mild pain. * Bowel - Miralax 17GM daily, Senna/colace 1 tablet BID, Dulcolax 10MG CO daily PRN. * Pneumonia vaccination - Administer Prevnar 13 and/or Pneumovax 23 as necessary. * DVT prophylaxis - Lovenox 40MG SC daily. * Coronary artery disease - Aspirin 325MG daily. * Vitamin D deficiency - D3 2000IU daily. * Alzheimer's Disease - Donepezil 10MG QHS. * Insomnia/appetite decreased/depression - Mirtazapine 7.5MG QHS. * Hyperlipidemia - Pravastatin 10MG QHS. * Hypertension - Valsartan 160MG BID. * Encephalopathy - order respiratory panel to finish workup. 02/22/172026 <Electronically signed by Mohit Wallace MD> Date Mohit Wallace MD Cosigner Signature: Date (if applicable) CC: Rajat Coombs MD; Mohit Wallace MD Signed DISCHARGE SUMMARY Observed: 02/22/2017 Status: F Source: [place] 4:36 PM [facility] REPOSITORY [facility] Medical Records Department [address] [place] [address] Discharge Summary 02/22/17 0943 MR#: [id number] Acct: [id number] Name: KATTY MIGUEL Rep #: [id number] : 1940 76 From: Estelita Martinez MASTER LAY OUT SPECIALIST-C PCP: Rajat Coombs MD Status: DIS IN Y [id number] <Estelita Martinez - Last Filed: 02/22/17 10:02> Discharge Date and Diagnosis Date of Admission: 02/19/17 Date of Discharge: 02/22/17 - Primary Discharge Diagnosis Active and Suspected Problems 1. Altered mental status suspect secondary to underlying dementia-acute stroke ruled out 2. Vitamin D deficiency 3. Dysphagia - Secondary Discharge Diagnosis Chronic Problems CAD (coronary artery disease) (Chronic) 3 stents History of [place] (myocardial infarction) (Chronic) Aneurysm of infrarenal abdominal aorta (Chronic) HTN (hypertension) (Chronic) Anxiety (Chronic) Dementia Tobacco dependence Hospital Course and Treatment Imaging Results: Diagnostic Data Chest X-Ray 02/19/17 00:14 IMPRESSION: Is slightly tortuous aorta. No acute findings in the lungs Electronically Signed: Edilberto Scott, at 1:37 EST Tel , Service support , Brain CT 02/19/17 00:16 IMPRESSION: No acute hemorrhage and no intra or extra-axial tumor masses. A small area of low attenuation in the anterior limb of the right internal capsule. May represent a small lacunar infarct Electronically Signed: Edilberto Scott, at 1:51 EST Tel , Service support , Brain MRI 02/19/17 09:04 IMPRESSION: 1. Involutional changes of the brain, as described above. 2. Apparent tiny acute infarct in the right cerebellum. Electronically Signed: Idania Tang MD at 17:09 EST , Service support , ADDENDUM: 02/19/17 2316 Head MRA 02/19/17 09:04 IMPRESSION: Nonhemodynamically significant vascular disease of the arteries of [place]. Electronically Signed: Idania Tang MD at 16:48 EST , Service support , Neck MRA 02/19/17 09:04 IMPRESSION: 1. Hemodynamically significant stenosis of the proximal right internal carotid artery with between 50 and 70% diameter narrowing. 2. Nonhemodynamically significant atherosclerotic disease elsewhere. Electronically Signed: Idania Tang MD at 16:54 EST , Service support , Head CTA 02/20/17 15:52 IMPRESSION: 1. No CTA evidence for hemodynamically significant stenosis of the arteries of [place]. 2. Incomplete [place]. 3. No CT evidence for acute thrombosis or aneurysm. Electronically Signed: Idania Tang MD at 17:24 EST , Service support , Neck CTA 02/20/17 15:52 IMPRESSION: 1. No CTA evidence for hemodynamically significant stenosis of the arteries of [place]. 2. Incomplete [place]. 3. No CT evidence for acute thrombosis or aneurysm. Electronically Signed: Idania Tang MD at 17:24 EST , Service support , Dr. Galdamez- Neurology Operations: None Procedures: 2-D Echocardiogram Summary of Care Provided: The patient is a 76 year old F admitted 02/19/2017 due to confusion. She has a past medical history of CAD status post 3 stents, history of [place], abdominal aortic aneurysm, hypertension, anxiety, COPD. 1. Altered mental status suspected secondary to worsening dementia-neurology was consulted, imaging was reviewed by neurology and acute stroke was ruled out. Echocardiogram showed an estimated ejection fraction of 65%, RVSP estimated to be 31. Home benzodiazepine regimen was discontinued during admission. CTA of neck shows stenosis of the proximal right internal carotid artery with estimated amount of narrowing 50-69%. Recommend follow-up with vascular as outpatient. 2. Dementia-continue Aricept. TCU at discharge. 3. Anxiety-benzodiazepines discontinued during admission as noted above. Patient can continue Remeron. If anxiety is not controlled on this regimen patient may be started on an SSRI such as Celexa or Zoloft if found necessary by primary care physician. 4. Dysphasia-patient will continue speech therapy at discharge. Continue supervised diet. 5. Vitamin D deficiency continue vitamin D supplementation.- 6. Tobacco dependence-daughter reports heavy tobacco use recently. Encourage smoking cessation. Other chronic medical conditions as noted above are stable at this time. General: Alert, Oriented x3, Cooperative HEENT: Atraumatic, PERRLA, EOMI, Normocephalic Neck: Supple, No JVD, Negative Carotid Bruits Lungs: Clear to auscultation, Normal air movement Cardiovascular: Regular rate, No murmurs Abdomen: Bowel Sounds Present, Soft, Non Tender Extremities: No edema, Capillary Refill Less than 3 Seconds Skin: No rashes, No breakdown Musculoskeletal: No Tenderness to Palpation of Joints or Extremities Neurological: Cranial nerves II-XII grossly intact Psych/Mental Status: Normal Affect, Appropriate, Alert and oriented to time, place, person, mood and affect Patient seen and examined prior to discharge. Physical assessment as noted above. Patient is stable for discharge to transitional care unit. This patient was seen by MARISA Duran under the supervision of Dr. Greenberg. Home Medications: Medications to take at Discharge Donepezil HCl [Aricept] 10 mg PO QHS 02/19/17 Mirtazapine 7.5 mg PO QHS 02/19/17 Pravastatin Sodium [Pravachol] 10 mg PO QHS 02/19/17 Valsartan [Diovan] 160 mg PO DAILY 02/19/17 Aspirin 325 mg PO DAILY@0800 02/22/17 Cholecalciferol (VIT D3) [Vitamin D3] 2,000 unit PO DAILYCM 02/22/17 Primary Care Physician: Rajat Coombs MD [Primary Care Provider] - Please follow up with your Primary Care Physician in: 1-2 Weeks Please Follow Up With: Devin Ventura MD When: 1-2 Weeks Disposition: Half-Way facility Minutes spent on discharge:: 35 Patient Condition:: Stable Meaningful Use Info Meaningful Use Diagnoses (Choose all that apply): None applicable <Vini Greenberg - Last Filed: 02/22/17 16:35> Discharge Date and Diagnosis - Primary Discharge Diagnosis 1. Altered mental status suspect secondary to underlying dementia-acute stroke ruled out 2. Vitamin D deficiency 3. Oropharyngeal dysphagia - Secondary Discharge Diagnosis Chronic Problems CAD (coronary artery disease) (Chronic) 3 stents History of [place] (myocardial infarction) (Chronic) Aneurysm of infrarenal abdominal aorta (Chronic) HTN (hypertension) (Chronic) Anxiety (Chronic) Hospital Course and Treatment Summary of Care Provided: This patient was seen in conjunction with Estelita WAYNE. I have independently interviewed and examined the patient and reviewed pertinent history, examination findings, laboratory and plan of management. I have reviewed the note and agree with the documented findings with the few additional points. In brief, patient is admitted for altered mental status most related to worsening dementia. Patient is transferred to SNF and needs further PT, OT and speech/swallow evaluation for oropharyngeal dysphagia Discharge meds reconciliation done. Discharge follow-up instruction done. I have discussed my assessment with Estelita WAYNE and orders have been reviewed. [] Code Visit Inpatient E AND M: [id number] Disch Hosp 02/22/17 1003 <Electronically signed by Estelita Martinez MASTER LAY OUT SPECIALIST-C> Date Estelita Martinez MASTER LAY OUT SPECIALIST-C 02/22/17 1636<Electronically signed by Vini Greenberg MD> Cosigner Signature (if applicable): Date Vini Greenberg MD CC: MASTER LAY OUT SPECIALIST-C Estelita Martinez; Rajat Coombs MD; Vini Greenberg MD Signed TRANSFER TO [facility] Observed: 02/22/2017 Status: F Source: [facility] 10:12 AM [facility] REPOSITORY [facility] Medical Records Department [address] [place] [address] Transfer to [facility] MR#: [id number] Acct: [id number] Name: KATTY MIGUEL Rep #: [id number] : 1940 76 From: Estelita CUNNINGHAM PCP: Rajat Coombs MD Status: ADM IN KATTY MIGUEL (Patient) (Health Ins. Claim No.) (Day of Discharge to Facility) Certification of patient admission REQUIRED AT TIME OF ADMISSION. I CERTIFY THAT POST-HOSPITAL ECF SERVICES ARE REQUIRED TO BE GIVEN ON AN IN-PATIENT BASIS BECAUSE OF THE ABOVE NAMED PATIENT'S NEED FOR SHELTER CARE ON A CONTINUING BASIS FOR THE CONDITION(S) FOR WHICH HE/SHE WAS RECEIVING IN-PATIENT HOSPITAL SERVICES PRIOR TO HIS/HER TRANSFER TO THE ECF. Date: ADDENDUM by MARISA Martinez on 02/22/17 at 1001 Code Visit Additional follow up: Dr. Devin Hernandez, 1-2 Weeks for right carotid stenosis 50-69%. 02/22/17 1001 <Electronically signed by Estelita CUNNINGHAM> Date Estelita Martinez cc: Guillermo Galdamez MD; Rajat Coombs MD * Signed Addendum entered and electronically signed by MARISA Duran 02/22/17 10:01: Code Visit Additional follow up: Dr. Devin Hernandez, 1-2 Weeks for right carotid stenosis 50-69%. Original Note: <Estelita Martinez - Last Filed: 02/22/17 10:00> - Diet 02/19/17 16:59 Diet: Regular Diet Food consistency:: Soft Liquid Consistency:: Regular/Thin Dietary Modifications:: Soft Diet Is pt able to select menu?: No Diet Comments: Supervision w/ assistance as needed; small sips, seated upright - Routine Orders/Code Status Enema Type: Fleetz Enema Frequency: Daily PRN Suppository Type: Dulcolax 10mg Suppository Frequency: Daily PRN O2 Liters per Minute: 2 O2 Frequency: PRN Keep PO Greater than or Equal to (%): 90 Routine Lab Work: CBC, BMP, - - Weekly Code Status: Full Code - Therapies Physical Therapy: Eval and Treat Occupational Therapy: Eval and Treat Speech Therapy: Eval and Treat - Allergies/Procedures Done in Hospital Allergies/Adverse Reactions: Allergies Sulfa (Sulfonamide Antibiotics) Allergy (Verified 02/18/17 23:52) Unknown Procedures: 2-D Echocardiogram - Type of Care/Length of Stay Estimated LOS: Convalescent Care Less Than 30 days Type of Care Needed: Skilled Rehab Potential: Fair Prognosis: Fair - Additional Orders/Day of Discharge H AND P will serve as current which was dated: 02/19/17 Day of Discharge: 02/22/17 - Dietary and Speech Recommendations Dietitian Recommendations/Changes: Rec advance EVA to No Added Salt w/ modified consistency per EDUCATIONAL ADMINISTRATION TEACHER recommendations when medically able. If NPO for greater than 3 days, consider alternate nutrition therapy for nutrition needs. Please consult RD for recommendations. - Follow Up Care Primary Care Physician: Rajat Coombs MD [Primary Care Provider] - Please follow up with your Primary Care Physician in: 1-2 Weeks <Vini Greenberg - Last Filed: 02/22/17 10:12> - Diet 02/19/17 16:59 Diet: Regular Diet Food consistency:: Soft Liquid Consistency:: Regular/Thin Dietary Modifications:: Soft Diet Is pt able to select menu?: No Diet Comments: Supervision w/ assistance as needed; small sips, seated upright - Routine Orders/Code Status Suppository Type: Dulcolax 10mg 02/22/17 0943 <Electronically signed by Estelita CUNNINGHAM> Date Estelita CUNNINGHAM Cosigner Signature: Date CC: Guillermo Galdamez MD; Rajat Coombs MD CONSULTATION Observed: 02/21/2017 Status: F Source: [place] 3:38 PM [facility] RE[facility] Medical Records Department [address] [place] [address] Consultation 02/19/17 1325 MR#: [id number] Acct: [id number] Name: KATTY MIGUEL Rep #: [id number] : 1940 76 From: Tano Galdamez MD PCP: Rajat Coombs MD Status: ADM IN Y Location: [place] [address] Problem List (1) Change in mental status Status: Acute Qualifiers: Altered mental status type: disorientation Qualified Code(s): R41.0 - Disorientation, unspecified Reason for Consult Date of Consultation: 02/19/17 Reason for Consultation: AMS and ? stroke on CT head History of Present Illness: The patient is a 76 year old CF with PMH HTN, HLD, dementia, CAD s/p stents, AAA s/p repair admitted with confusion. History is obtained from medical records and patients daughter. Per daughter patient lives alone, was very lethargic on (02/15/17), slept the whole day, the next day had hallucinations, visual where she would see people who were not there, she would hear storm sounds, was confused and hence was admitted for further evaluation. Per daughter she had a similar episode about a year ago when she was diagnosed with UTI. At present patient denies any TRENT, visual disturbances, chest pain, focal motor weakness or sensory loss. CT head since admission reported to show possible lacunar infarct in the right IC. Patient does not use cane or walker to ambulate, does drive, does not need any assistance for her ADLs, takes ASA daily and is on Aricept. Has been diagnosed with dementia by her primary. Per daughter she felt that since last about 3 days ago, patient has been having repeating herself, has not been remembering things and may have some slurred speech though at present there is no slurred speech. Per documentation patient has been on Ativan at home. No history of seizures. ] Past Medical History Past Medical History (Chronic Problems): Chronic Problems CAD (coronary artery disease) (Chronic) 3 stents History of [place] (myocardial infarction) (Chronic) Aneurysm of infrarenal abdominal aorta (Chronic) HTN (hypertension) (Chronic) Anxiety (Chronic) Allergies Sulfa (Sulfonamide Antibiotics) Allergy (Verified 02/18/17 23:52) Unknown Home Medications: Ambulatory Orders Medication Instructions Recorded Aspirin E.C. [Ecotrin] 81 mg PO DAILY@0800 02/19/17 Donepezil HCl [Aricept] 10 mg PO QHS 02/19/17 Surgical History: no surgical history, - - Cardiac catheterization. Psychiatric History: Anxiety, Depression STOCK CLERK History: No pertinent STOCK CLERK history Lives: Alone Smoking Status: Current every day smoker Tobacco Use: Non-smoker Alcohol: None Drugs: None - *Family History Paternal History Items: Cancer - Her father of lung cancer Review of Systems Constitutional: Reports: - - complete ROS negative except as documented in HPI Patient Problems: Active and Suspected Problems CVA (cerebral vascular accident) (Acute) - Physical Exam General: Disoriented HEENT: Atraumatic, PERRLA, EOMI, Normocephalic Neck: Supple, No JVD, Negative Carotid Bruits Lungs: Clear to auscultation, Normal air movement Cardiovascular: Regular rate, No murmurs Abdomen: Bowel Sounds Present, Soft, Non Tender Extremities: No edema, Capillary Refill Less than 3 Seconds Skin: No rashes, No breakdown Musculoskeletal: No Tenderness to Palpation of Joints or Extremities Neurological: - - awake, confused, disoriented AoA x2, CN 2-12 grossly intact, moves all 4 extremites, no cerebellar signs, no sensory loss, Reflexes + B/L B/S/T/K/A, gait deferred, NIHSS 0 Psych/Mental Status: Normal Affect, Appropriate Vital Signs Temp Pulse Resp BP Pulse Ox 98.4 F 63 14 124/65 H 97 02/19/17 09:30 02/19/17 09:30 02/19/17 09:30 02/19/17 09:30 02/19/17 09:30 Oxygen Flow Rate 2 Oxygen Delivery Method Nasal Cannula Weight: 60.4 kg Intake and Output for Last 24 Hours Intake Total 0 / 0 Balance 0 / 0 Laboratory Tests Past 24 Hrs Specimen Type ART Sample Site R Radial pH 7.40 Bicarbonate Actual 29.9 H POC Total CO2 31 Base Excess 5 H Assessment/Plan Active and Suspected Problems CVA (cerebral vascular accident) (Acute) The patient is a 76 year old CF with PMH HTN, HLD, dementia, CAD s/p stents, AAA s/p repair admitted with confusion. History is obtained from medical records and patients daughter. Per daughter patient lives alone, was very lethargic on (02/15/17), slept the whole day, the next day had hallucinations, visual where she would see people who were not there, she would hear storm sounds, was confused and hence was admitted for further evaluation. Per daughter she had a similar episode about a year ago when she was diagnosed with UTI. At present patient denies any TRENT, visual disturbances, chest pain, focal motor weakness or sensory loss. CT head since admission reported to show possible lacunar infarct in the right IC. Patient does not use cane or walker to ambulate, does drive, does not need any assistance for her ADLs, takes ASA daily and is on Aricept. Has been diagnosed with dementia by her primary. Per daughter she felt that since last about 3 days ago, patient has been having repeating herself, has not been remembering things and may have some slurred speech though at present there is no slurred speech. Per documentation patient has been on Ativan at home. No history of seizures. Impression Possible Delirium and Metabolic Encephalopathy Dementia R/O Stroke vs TGA Plan -On ASA and Pravastatin -CT head reviewed- reported to show ? lacunar infarct right IC, (difficult to identify on my review and possibly unlikely to be stroke) but will obtain MRI brain and MRA head/neck -Await TTE, LDL, Hba1c -Labs reviewed -Avoid daily benzodiazepines given the history of dementia. -Recommend PT/OT -GI/DVT prophylaxis -Fall precautions -Please call with questions if any -Thank you for allowing us to participate in patients care and management I spent 60 minutes taking history, doing physical examination, reviewing medical records, coordinating care and counseling the patient and daughter. Code Visit Inpatient E AND M: [id number] Init Hosp L3 02/21/17 1538 <Electronically signed by Tano Galdamez MD> Date Tano Galdamez MD Cosigner Signature (if applicable): Date CC: Guillermo Galdamez MD; Rajat Coombs MD Signed CTA HEAD W/WO Observed: 02/20/2017 Status: F Source: [facility] CONTR[facility] 3:53 PM [facility] Imaging Services [address] [place] [address] CTA Head W/WO Contrast MR#: [id number] Acct: [id number] Name: KATTY MIGUEL Rep #: [id number] : 1940 F 76 From: Idania Tang MD PCP: Rajat Coombs MD Status: ADM IN Study: CTA Head W/WO Contrast Date of Exam: 02/20/17 Exam# [id number] Ordering Dr: Michael Mason STUDY: CTA NECK WITH CONTRAST REASON FOR EXAM: Female, 76 years old. Dizziness and possible CVA. RADIATION DOSAGE (If Supplied By Facility): CTDIvol = ( 28.64 ) mGy, DLP = ( 1395.74 ) mGycm TECHNIQUE: CT angiography with multi-detector data acquisition was performed from the aortic arch to the skull base following intravenous administration of 100 ml of Isovue 300 contrast. MIP images were reconstructed from the axial data set. Post-processing of the angiographic images was performed, with multiplanar reformation and 3D reconstruction. Individualized dose optimization techniques were used for this CT. COMPARISON: MRA of the neck dated February 19, 2017. FINDINGS: AORTIC ARCH: There is atherosclerotic calcific plaque formation of the aortic arch and great vessels arising from the aortic arch, without a hemodynamically significant stenosis. There is a normal origin of the brachiocephalic, left common carotid, and left subclavian arteries. RIGHT CAROTID ARTERIES: There is atherosclerotic tortuous elongation of the right common carotid artery. There is moderate atherosclerotic plaque formation with moderate narrowing of the right carotid bulb. There is moderate atherosclerotic plaque formation of the origin of the right internal carotid artery with an estimated stenosis of 50-69% stenosis. Normal visualized cervical portion of the right internal carotid artery. Normal origin of the right external carotid artery (ECA). LEFT CAROTID ARTERIES: Normal left common carotid artery (CCA). There is mild atherosclerotic plaque formation with minimal narrowing of the left carotid bulb. There is mild atherosclerotic plaque formation of the origin of the left internal carotid artery with less than 50% cross sectional diameter stenosis. There is atherosclerotic tortuous elongation of the cervical portion of the left internal carotid artery. Normal origin of the left external carotid artery (ECA). VERTEBRAL ARTERIES: Normal bilateral vertebral arteries. Normal bilateral parotid glands. Normal bilateral handle machine operator spaces. Normal bilateral parapharyngeal spaces. Normal bilateral carotid spaces. Normal bilateral sublingual and submandibular glands and spaces. Normal visualized nasopharynx. Normal retropharyngeal space. Normal perivertebral space. Normal visualized bilateral faucial tonsils. The visualized tongue, tongue base and oropharynx are normal. The visualized cervical lymph nodes (levels I-) are within normal size limits, and maintain normal morphology. There is no demonstrated solid or cystic mass lesion. There is no abnormal contrast enhancement. Normal epiglottis, bilateral vallecula and hypopharynx. The pre-epiglottic and paraglottic adipose spaces are normal. Normal visualized bilateral piriform sinuses, aryepiglottic folds, vocal cords, and arytenoid-cricoid articulations. Normal subglottic trachea. Normal bilateral lobes of the thyroid gland. Multiple patchy lucencies are visible in the upper lobes probably related to centrilobular emphysema. There is mild thickening of interstitium. Normal visualized paranasal sinuses. There is multilevel degenerative changes of the cervical spine. IMPRESSION: 1. Hemodynamically significant stenosis of the proximal right internal carotid artery with estimated amount narrowing of 50-69 %. 2. No CT evidence for dissection or acute thrombosis. Electronically Signed: Idania Tang MD at 17:20 EST , Service support , STUDY: CTA OF THE BRAIN REASON FOR EXAM: Female, 76 years old. Dizziness and CVA. RADIATION DOSAGE (If Supplied By Facility): CTDIvol = ( 28.64 ) mGy, DLP = ( 1395.74 ) mGycm TECHNIQUE: CT angiography was performed with a multi-detector CT scanner. Data acquisition was obtained from the skull base through the vertex following intravenous administration of 100 ml of Isovue-300. MIP images were reconstructed from the axial data set. Post-processing of the angiographic images was performed, with multiplanar reformation and 3D reconstruction. Individualized dose optimization techniques were used for this CT. COMPARISON: None. FINDINGS: Normal bilateral petrous carotid arteries. There is ectatic elongation and tortuosity of the right cavernous carotid artery without a demonstrated hemodynamically significant stenosis. There is ectatic elongation and tortuosity of the left cavernous carotid artery without a demonstrated hemodynamically significant stenosis. Normal right A1 segments of the anterior cerebral artery. There is hypoplastic development of the left A1 segment of the anterior cerebral arteries with an atretic but intact artery. Normal intact anterior communicating artery (ACOM). Normal bilateral A2 segments of the anterior cerebral arteries. There is irregularity of the right M1 and M2 branches with minimal luminal narrowing, suggesting atherosclerotic plaque formation, without an occlusion. There is irregularity of the left M1 and M2 branches with minimal luminal narrowing, suggesting atherosclerotic plaque formation, without an occlusion. There is non-visualization of the right posterior communicating artery (PCOM). There is a persistent origin of the left posterior cerebral artery with absence of the posterior communicating artery (PCOM). Normal bilateral vertebral arteries. Normal basilar artery with a normal basilar bifurcation. The visualized bilateral superior cerebellar (SCA) arteries are normal. There is absence of the left P1 segment of the posterior cerebral arteries with a normal right P1 segment. Normal visualized bilateral P2 and P3 segments of the posterior cerebral arteries. There is no demonstrated aneurysm of the [place]. There are mild involutional changes of the brain. CT/CTA Head W/WO Contrast IMPRESSION: 1. No CTA evidence for hemodynamically significant stenosis of the arteries of [place]. 2. Incomplete [place]. 3. No CT evidence for acute thrombosis or aneurysm. Electronically Signed: Idania Tang MD at 17:24 EST , Service support , CC: JULISSA Mason; Rajat Coombs MD Cisco Network Architect: Signed CTA NECK W/WO Observed: 02/20/2017 Status: F Source: [facility] CONTRAST 3:53 PM [facility] Imaging Services [address] [place] [address] CTA Neck W/WO Contrast MR#: [id number] Acct: [id number] Name: KATTY MIGUEL Rep #: [id number] : 1940 F 76 From: Idania Tang MD PCP: Rajat Coombs MD Status: ADM IN Study: CTA Neck W/WO Contrast Date of Exam: 02/20/17 Exam# [id number] Ordering Dr: Michale Mason STUDY: CTA NECK WITH CONTRAST REASON FOR EXAM: Female, 76 years old. Dizziness and possible CVA. RADIATION DOSAGE (If Supplied By Facility): CTDIvol = ( 28.64 ) mGy, DLP = ( 1395.74 ) mGycm TECHNIQUE: CT angiography with multi-detector data acquisition was performed from the aortic arch to the skull base following intravenous administration of 100 ml of Isovue 300 contrast. MIP images were reconstructed from the axial data set. Post-processing of the angiographic images was performed, with multiplanar reformation and 3D reconstruction. Individualized dose optimization techniques were used for this CT. COMPARISON: MRA of the neck dated February 19, 2017. FINDINGS: AORTIC ARCH: There is atherosclerotic calcific plaque formation of the aortic arch and great vessels arising from the aortic arch, without a hemodynamically significant stenosis. There is a normal origin of the brachiocephalic, left common carotid, and left subclavian arteries. RIGHT CAROTID ARTERIES: There is atherosclerotic tortuous elongation of the right common carotid artery. There is moderate atherosclerotic plaque formation with moderate narrowing of the right carotid bulb. There is moderate atherosclerotic plaque formation of the origin of the right internal carotid artery with an estimated stenosis of 50-69% stenosis. Normal visualized cervical portion of the right internal carotid artery. Normal origin of the right external carotid artery (ECA). LEFT CAROTID ARTERIES: Normal left common carotid artery (CCA). There is mild atherosclerotic plaque formation with minimal narrowing of the left carotid bulb. There is mild atherosclerotic plaque formation of the origin of the left internal carotid artery with less than 50% cross sectional diameter stenosis. There is atherosclerotic tortuous elongation of the cervical portion of the left internal carotid artery. Normal origin of the left external carotid artery (ECA). VERTEBRAL ARTERIES: Normal bilateral vertebral arteries. Normal bilateral parotid glands. Normal bilateral handle machine operator spaces. Normal bilateral parapharyngeal spaces. Normal bilateral carotid spaces. Normal bilateral sublingual and submandibular glands and spaces. Normal visualized nasopharynx. Normal retropharyngeal space. Normal perivertebral space. Normal visualized bilateral faucial tonsils. The visualized tongue, tongue base and oropharynx are normal. The visualized cervical lymph nodes (levels I-) are within normal size limits, and maintain normal morphology. There is no demonstrated solid or cystic mass lesion. There is no abnormal contrast enhancement. Normal epiglottis, bilateral vallecula and hypopharynx. The pre-epiglottic and paraglottic adipose spaces are normal. Normal visualized bilateral piriform sinuses, aryepiglottic folds, vocal cords, and arytenoid-cricoid articulations. Normal subglottic trachea. Normal bilateral lobes of the thyroid gland. Multiple patchy lucencies are visible in the upper lobes probably related to centrilobular emphysema. There is mild thickening of interstitium. Normal visualized paranasal sinuses. There is multilevel degenerative changes of the cervical spine. IMPRESSION: 1. Hemodynamically significant stenosis of the proximal right internal carotid artery with estimated amount narrowing of 50-69 %. 2. No CT evidence for dissection or acute thrombosis. Electronically Signed: Idania Tang MD at 17:20 EST , Service support , STUDY: CTA OF THE BRAIN REASON FOR EXAM: Female, 76 years old. Dizziness and CVA. RADIATION DOSAGE (If Supplied By Facility): CTDIvol = ( 28.64 ) mGy, DLP = ( 1395.74 ) mGycm TECHNIQUE: CT angiography was performed with a multi-detector CT scanner. Data acquisition was obtained from the skull base through the vertex following intravenous administration of 100 ml of Isovue-300. MIP images were reconstructed from the axial data set. Post-processing of the angiographic images was performed, with multiplanar reformation and 3D reconstruction. Individualized dose optimization techniques were used for this CT. COMPARISON: None. FINDINGS: Normal bilateral petrous carotid arteries. There is ectatic elongation and tortuosity of the right cavernous carotid artery without a demonstrated hemodynamically significant stenosis. There is ectatic elongation and tortuosity of the left cavernous carotid artery without a demonstrated hemodynamically significant stenosis. Normal right A1 segments of the anterior cerebral artery. There is hypoplastic development of the left A1 segment of the anterior cerebral arteries with an atretic but intact artery. Normal intact anterior communicating artery (ACOM). Normal bilateral A2 segments of the anterior cerebral arteries. There is irregularity of the right M1 and M2 branches with minimal luminal narrowing, suggesting atherosclerotic plaque formation, without an occlusion. There is irregularity of the left M1 and M2 branches with minimal luminal narrowing, suggesting atherosclerotic plaque formation, without an occlusion. There is non-visualization of the right posterior communicating artery (PCOM). There is a persistent origin of the left posterior cerebral artery with absence of the posterior communicating artery (PCOM). Normal bilateral vertebral arteries. Normal basilar artery with a normal basilar bifurcation. The visualized bilateral superior cerebellar (SCA) arteries are normal. There is absence of the left P1 segment of the posterior cerebral arteries with a normal right P1 segment. Normal visualized bilateral P2 and P3 segments of the posterior cerebral arteries. There is no demonstrated aneurysm of the [place]. There are mild involutional changes of the brain. CT/CTA Neck W/WO Contrast IMPRESSION: 1. No CTA evidence for hemodynamically significant stenosis of the arteries of [place]. 2. Incomplete [place]. 3. No CT evidence for acute thrombosis or aneurysm. Electronically Signed: Idania Tang MD at 17:24 EST , Service support , CC: JULISSA Mason; Rajat Coombs MD Cisco Network Architect: Signed ECHO, COMPLETE W/ Observed: 02/20/2017 Status: F Source: [facility] CONTRAST 12:58 PM [facility] Cardiovascular Services [address] [place], [place] [address] [address] Echo Complete 02/20/17 1148 MR#: [id number] Acct: [id number] Name: KATTY MIGUEL Rep #: [id number] : 1940 76 From: Dipesh Jeffries MD Attending Dr[facility] Status: ADM IN Ordering Dr: Michael Mason Date: 02/20/17 Location: PCU Sex: F C Admitted: 02/19/17 Reason For Study: Emboli Procedure This was a 2D Doppler, Color Flow transthoracic echocardiogram. The exam was of adequate technical quality. Exam performed portable in patient room. Left Ventricle Normal LV size. Left ventricular systolic function is normal. The estimated ejection fraction is 65 %. No regional wall motion abnormalities noted. Right Ventricle Normal RV size. Normal systolic function. Atria Normal left atrium. Normal right atrium. No doppler evidence for ASD. Mitral Valve There is no mitral annular calcification. Normal mitral valve. The mitral valve chordae are thickened and/or calcified. Trivial mitral valve insufficiency. Tricuspid Valve Normal tricuspid valve. Trivial tricuspid valve insufficiency. Right ventricular systolic pressure estimated to be 31 mmHg. Aortic Valve Trisinus/trileaflet aortic valve. Mild focal aortic valve calcification. Pulmonic Valve The pulmonic valve is not well visualized. Great Vessels Normal sized aortic root. Pericardium/Pleural No pericardial effusion. MMode/2D Measurements AND Calculations LVIDd: 3.2 cm IVSd: 1.1 cm Ao root diam: 3.1 cm LVIDs: 2.2 cm LVPWd: 1.2 cm LA dimension: 3.0 cm RVDd: 3.8 cm FS: 33.0 % LAV(MOD-bp): 35.7 ml LA A4 area: 14.3 cm2 RA A4 area: 13.7 cm2 LAV(MOD-bp) Indexed: 21.3 ml/m2 LAV(MOD-sp2): 37.0 ml LAV(MOD-sp4): 33.0 ml Time Measurements MV dec time: 0.24 sec Doppler Measurements AND Calculations MV E max destinee: 73.9 cm/sec Lat Peak E' Destinee: 7.2 cm/sec Med Peak E' Destinee: 5.8 cm/sec MV A max destinee: 119.2 cm/sec E/E' lat: 10.2 E/E' med: 12.7 MV E/A: 0.62 MV V2 max: 140.6 cm/sec MV P1/2t max destinee: 92.5 cm/sec Ao V2 max: 164.7 cm/sec MV max P.9 mmHg MV P1/2t: 83.1 msec Ao max P.8 mmHg MV V2 mean: 64.4 cm/sec MV dec slope: 325.9 cm/sec2 Ao V2 mean: 105.7 cm/sec MV mean P.0 mmHg MVA(P1/2t): 2.6 cm2 Ao mean P.0 mmHg MV V2 VTI: 33.8 cm Ao V2 VTI: 29.7 cm LV V1 max: 145.3 cm/sec PA V2 max: 99.2 cm/sec TR max destinee: 263.9 cm/sec LV V1 max P.4 mmHg TR max P.9 mmHg LV V1 mean P.5 mmHg LV V1 mean: 85.4 cm/sec LV V1 VTI: 27.6 cm Interpretation Summary Left ventricular systolic function is normal. The estimated ejection fraction is 65 %. The mitral valve chordae are thickened and/or calcified. Trivial mitral valve insufficiency. Trivial tricuspid valve insufficiency. Mild focal aortic valve calcification. Right ventricular systolic pressure estimated to be 31 mmHg. Ordering Physician: Michael Mason Referring Physician: Rajat Coombs Performed By: Antwon Barnhart RCS 02/20/17 1257 Date Dipesh Jeffries MD CC: JULISSA Mason; Rajat Coombs MD Date Dictated: 02/20/17 1148 Date Transcribed: 02/20/17 1257 Cisco Network Architect: Signed HISTORY AND PHYSICAL Observed: 02/19/2017 Status: F Source: ITZEL EXAM 5:31 PM [facility] Medical Records Department [address] [place] [address] History and Physical 02/19/17 0903 MR#: [id number] Acct: [id number] Name: KATTY MIGUEL Luciana Rep #: [id number] : 1940 76 From: Michael COSTA PCP: Rajat Coombs MD Status: ADM TELLO Y Location: [place] [address] ADDENDUM by Chidi Fam DO on 02/19/17 at 1731 Code Visit Patient was seen and examined this morning, she was admitted to the emergency room for mental status change. Review of systems and medical history was unable to be obtained from the patient due to known dementia. Workup in the emergency room included a CAT scan which showed presence of a possible small stroke, chemistry profile was remarkable for a slight elevation in her AST and slight elevation in the troponin. Patient's CBC was unremarkable, arterial blood gases did not show an acidosis or increase in PCO2 which would account for the patient's confusion. On examination, patient is alert but confused, she does not follow commands. Cranial nerves II through XII are grossly intact, patient moves all extremities. Patient will be admitted to PCU for acute ischemic stroke, MRA of the head and neck as well as MRI of the brain will be performed, echocardiogram was ordered, neurology consultation was ordered. I have reviewed Michael Mason's history and physical and plan of care and endorse both 02/19/17 1731 <Electronically signed by Chidi Fam DO> Date Chidi Fam DO cc: JULISSA Mason; Rajat Coombs MD; Chidi Fam DO * Signed Problem List (1) CVA (cerebral vascular accident) Status: Acute (2) Anxiety Status: Chronic (3) CAD (coronary artery disease) Status: Chronic Comment: 3 stents (4) HTN (hypertension) Status: Chronic (5) History of [place] (myocardial infarction) Status: Chronic History of Present Illness Date of Admission: 02/19/17 Chief Complaint: confusion The patient is a 76 year old F who presented to the ER with a confused episode that began yesterday. She reportedly has mild dementia but normally functions well and lives on her own. She is very confused and does not remember why she is here currently and no family is at the bedside, history was obtained primarily through reports. She was behaving strangely at home, called the fire department saying she smelled gas, and then went to the neighbors house and was acting abnormally. She was brought to the ED and a CT brain showed a possible stroke. Her old records indicate a hx of CAD, prior WY and prior stents - when I ask her about these she denies and says she has no medical history. She does state she has had some blurry vision that is new, dizziness when walking and ringing in her ears. She denies TRENT and focal weakness. She is on O2 in bed but denies SOB. She has no CP. She is resting in bed, slow to answer questions, but answers without slurred speech and appears comfortable. [] Past Medical History Past Medical History (Chronic Problems): Chronic Problems CAD (coronary artery disease) (Chronic) 3 stents History of [place] (myocardial infarction) (Chronic) Aneurysm of infrarenal abdominal aorta (Chronic) HTN (hypertension) (Chronic) Anxiety (Chronic) Allergies Sulfa (Sulfonamide Antibiotics) Allergy (Verified 02/18/17 23:52) Unknown Home Medications: Ambulatory Orders Medication Instructions Recorded Aspirin E.C. [Ecotrin] 81 mg PO DAILY@0800 02/19/17 Donepezil HCl [Aricept] 10 mg PO QHS 02/19/17 Surgical History: no surgical history, - - Cardiac catheterization. Psychiatric History: Anxiety, Depression STOCK CLERK History: No pertinent STOCK CLERK history Lives: Alone Smoking Status: Former smoker Tobacco Use: Non-smoker Alcohol: None Drugs: None - *Family History Paternal History Items: Cancer - Her father of lung cancer Review of Systems Constitutional: Denies: Chills, Fever, Weight Change Eyes: Reports: Blurred vision, Vision Change. Denies: Double vision HEENT: Reports: Hearing Changes, - - tinnitus. Denies: Difficulty Hearing, Hard of Hearing, Head Aches, Sinus Congestion, Sinus Drainage Cardiovascular: Denies: Chest Pain, Chest Pressure, Chest Tightness, Heaviness, Light Headedness, Palpitations Respiratory: Denies: Cough, Shortness of breath at rest, Sputum production Gastrointestinal: Denies: Abdominal Pain, Nausea, Vomiting Genitourinary: Denies: Dysuria Musculoskeletal: Denies: Joint Pain, Joint Tenderness Skin: Denies: Rash, Wounds Neurological: Reports: Blurred vision, Confusion. Denies: Balance problems, Double vision, Change in Speech, Slurred speech, Difficulty swallowing, Focal weakness, Headaches, Incoordination, Numbness, Tingling Psychiatric: Denies: Anxiety, Depression, Homicidal Ideations, Suicidal Ideations Hematologic/ Lymphatic: Denies: Easy Bruising, Easy Bleeding VTE Information - Inpt Only VTE Present on Admission: No VTE Mechan Device Prophylaxis: SCD's VTE Pharm Prophylaxis ordered?: Yes Patient Problems: Active and Suspected Problems CVA (cerebral vascular accident) (Acute) - Physical Exam General: Alert, Cooperative, Confused, - - slow to respond HEENT: Atraumatic, PERRLA, EOMI, Normocephalic Neck: Supple, No JVD, Negative Carotid Bruits Lungs: Clear to auscultation, Normal air movement Cardiovascular: Regular rate, No murmurs Abdomen: Bowel Sounds Present, Soft, Non Tender Extremities: No edema, Capillary Refill Less than 3 Seconds Skin: No rashes, No breakdown Musculoskeletal: No Tenderness to Palpation of Joints or Extremities Neurological: Cranial nerves II-XII grossly intact, - - no slurred speech, 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 No facial droop. Psych/Mental Status: Normal Affect, Appropriate Vital Signs Temp Pulse Resp BP Pulse Ox 98.3 F 61 16 139/70 H 99 02/19/17 05:41 02/19/17 07:08 02/19/17 05:41 02/19/17 05:45 02/19/17 05:41 Oxygen Flow Rate 2 Oxygen Delivery Method Nasal Cannula Weight: 60.4 kg Intake and Output for Last 24 Hours Intake Total 0 / 0 Balance 0 / 0 Laboratory Tests Past 24 Hrs Specimen Type ART Sample Site R Radial pH 7.40 Bicarbonate Actual 29.9 H Assessment/Plan Active and Suspected Problems CVA (cerebral vascular accident) (Acute) 1. Altered mental status suspect 2/2 acute stroke - possible lacunar infarct on CT brain. Get MRI MRA brain/head/neck and echo. Consult Neuro. ST/PT/OT evals. Aspirin/Statin therapy. EKG negative. She is still answering questions inappropriately, possibly was hallucinating at home, no focal deficits appreciated at this time. She does complain of blurry vision, dizziness, and ringing in her ears. She denies hx of stroke. Her hx is unreliable. 2. Hx CAD, [place], stents, HTN - continue aspirin, statin, valsartan 3. Dementia - this may represent a decline in her dementia. She will likely be unable to return home alone. Continue Aricept. DVT ppx: heparin DC planning: Placement. This patient was seen by Michael Mason PA-C under the supervision of Doctor Cristel. 02/19/17916 <Electronically signed by Michael COSTA> Date Michael COSTA 02/19/17 1727<Electronically signed by Chidi Fam DO> Cosigner Signature: Date (if applicable) Chidi Fam DO CC: JULISSA Mason; Rajat Coombs MD; Chidi Fam DO Signed 12 LEAD ELECTROCARDIOGRAM Observed: 02/19/2017 Status: F Source: [place] 1:37 PM [facility] REPOSITORY [facility] Cardiovascular Services [address] [place] [address] 12 Lead EKG 02/19/17 0026 MR#: [id number] Acct: [id number] Name: KATTY MIGUEL Rep #: [id number] : 1940 76 From: Jalen East MD Attending Dr: Chidi Fam DO Status: ADM TELLO Ordering Dr: Maribell London Date: 02/19/17 Location: [facility] Sex: F C Admitted: 02/19/17 Test Reason : GEN ILL Blood Pressure : / mmHG Vent. Rate : 067 BPM Atrial Rate : 067 BPM P-R Int : 194 ms QRS Dur : 078 ms QT Int : 392 ms P-R-T Axes : 073 047 083 degrees QTc Int : 414 ms Normal sinus rhythm Nonspecific ST and T wave abnormality Abnormal ECG Confirmed by JALEN EAST MD ([id number]), film editor supervisor YESIKA TANG ([id number]) on 02/19/2017 1:36:52 PM Referred By: AL Confirmed By:JALEN EAST MD 02/19/17 1336 Date Jalen East MD CC: Rajat Coombs MD Signed VITAMIN D,25 HYDROXY Collected: 02/19/2017 Status: F Source: [place] 9:41 AM [facility] REPOSITORY TYPE CODE TESTS RESULT OUT OF RANGE REFERENCE UNITS LAB L506.1000 ng/mL Normal Vitamin D 18.6 25-OH Result Comment: Vitamin D 25(OH) Status Range Deficiency <20 ng/mL (50nmol/L) Insuffciency 20 - 30 ng/mL (50 - 75 nmol/L) Sufficiency 30 - 100 ng/mL (75 - 250 nmol/L) Toxicity >100 ng/mL (>250 nmol/L) Performed By: #### L506.1000 #### [facility] [address] [place], [address] MRA HEAD ONLY WITHOUT Observed: 02/19/2017 Status: F Source: [place] CONTRAST 9:05 AM [facility] REPOSITORY [facility] Imaging Services [address] [facility] [place] [address] MRA Head ONLY without Contrast MR#: [id number] Acct: [id number] Name: KATTY MIGUEL Rep #: [id number] : 1940 F 76 From: Idania Tang MD PCP: Rajat Coombs MD Status: ADM TELLO Study: MRA Head ONLY without Contrast Date of Exam: 02/19/17 Exam# [id number] Ordering Dr: Chidi Fam DO STUDY: MRA OF THE HEAD WITHOUT CONTRAST REASON FOR EXAM: Female, 76 years old. Mental status change and slurred speech. TECHNIQUE: 3-D tuam-rq-kghpxj (TOF) imaging was performed with MIPs. The study was performed unenhanced. COMPARISON: MRA of the head dated February 13, 2016. FINDINGS: Normal bilateral petrous carotid arteries. There is ectatic elongation and tortuosity of the right cavernous carotid artery, without a demonstrated hemodynamically significant stenosis. There is ectatic elongation and tortuosity of the left cavernous carotid artery, without a demonstrated hemodynamically significant stenosis. Normal right A1 segments of the anterior cerebral artery. Normal left A1 segments of the anterior cerebral artery. Normal intact anterior communicating artery (ACOM). Normal bilateral A2 segments of the anterior cerebral arteries. There is irregularity of the right M1 and M2 branches with minimal luminal narrowing, suggesting atherosclerotic plaque formation, without an occlusion. There is irregularity of the left M1 and M2 branches with minimal luminal narrowing, suggesting atherosclerotic plaque formation, without an occlusion. Normal right posterior communicating artery (PCOM). There is a persistent origin of the left posterior cerebral artery with absence of the P1 segment of the left posterior cerebral artery. Normal bilateral vertebral arteries. There is tortuosity with elongation of the basilar artery. The visualized bilateral superior cerebellar (SCA) arteries are normal. There is absence of the left P1 segment of the posterior cerebral arteries with a normal right P1 segment. Normal visualized bilateral P2 and P3 segments of the posterior cerebral arteries. There is no demonstrated aneurysm of the [place]. There is no major vessel occlusion or hemodynamically significant stenosis. There are mild involutional changes of the brain. MRI/MRA Head ONLY without Contrast IMPRESSION: Nonhemodynamically significant vascular disease of the arteries of [place]. Electronically Signed: Idania Tang MD at 16:48 EST , Service support , CC: Rajat Coombs MD; Chidi Fam DO Cisco Network Architect: Signed MRA NECK WITH AND W/O Observed: 02/19/2017 Status: F Source: [place] CONTRAST 9:05 AM [facility] REPOSITORY [facility] Imaging Services [address] [place] [address] MRA Neck WITH and W/O Contrast MR#: [id number] Acct: [id number] Name: KATTY MIGUEL Rep #: [id number] : 1940 F 76 From: Idania Tang MD PCP: Rajat Coombs MD Status: ADM TELLO Study: MRA Neck WITH and W/O Contrast Date of Exam: 02/19/17 Exam# [id number] Ordering Dr: Chidi Fam DO STUDY: MRA NECK WITH AND WITHOUT CONTRAST REASON FOR EXAM: Female, 76 years old. Mental status change and slurred speech. TECHNIQUE: 3-D bxgv-mx-fxfdmq (TOF) imaging was performed in an 1.5 T MRI scanner. 6 ml of Gadavist was administered for the contrast enhanced images. Several images are limited by patient motion. COMPARISON: MRA of the neck dated February 13, 2016. FINDINGS: RIGHT CAROTID ARTERIES: Normal right common carotid artery (CCA). There is moderate atherosclerotic plaque formation with moderate narrowing of the carotid bulb. There is moderate atherosclerotic plaque formation of the origin of the right internal carotid artery with an estimated stenosis of 50-69% stenosis. There is atherosclerotic tortuous elongation of the cervical portion of the right internal carotid artery. Normal origin of the right external carotid artery (ECA). LEFT CAROTID ARTERIES: Normal left common carotid artery (CCA). There is moderate atherosclerotic plaque formation with moderate narrowing of the carotid bulb. There is mild atherosclerotic plaque formation of the origin of the left internal carotid artery with less than 50% cross sectional diameter stenosis. There is atherosclerotic tortuous elongation of the cervical portion of the left internal carotid artery. Normal origin of the left external carotid artery (ECA). VERTEBRAL ARTERIES: Normal antegrade flow within the bilateral vertebral artery without a hemodynamically significant stenosis. MRI/MRA Neck WITH and W/O Contrast IMPRESSION: 1. Hemodynamically significant stenosis of the proximal right internal carotid artery with between 50 and 70% diameter narrowing. 2. Nonhemodynamically significant atherosclerotic disease elsewhere. Electronically Signed: Idania Tang MD at 16:54 EST , Service support , CC: Rajat Coombs MD; Chidi Fam DO Cisco Network Architect: Signed BRAIN WITHOUT Observed: 02/19/2017 Status: F Source: [place] CONTRAST 9:05 AM [facility] REPOSITORY [facility] Imaging Services [address] [place] [address] Brain without Contrast MR#: [id number] Acct: [id number] Name: KATTY MIGUEL Rep #: [id number] : 1940 F 76 From: Idania Tang MD PCP: Rajat Coombs MD Status: ADM TELLO Study: Brain without Contrast Date of Exam: 02/19/17 Exam# [id number] Ordering Dr: Chidi Fam DO ADDENDUM by Idania Tang MD on 02/19/17 at 2309 MRI/Brain without Contrast 02/19/176 Date cc: Rajat Coombs MD; Chidi Fam DO * Signed ADDENDUM by Idania Tang MD on 02/19/17 at 2309 ADDENDUM NOTE: Findings discussed with Dr. Galdamez on February 19, 2017 on 2305 EST. Electronically Signed: Idania Tang MD at 23:09 EST , Service support , 02/19/17 2304 Date cc: Rajat Coombs MD; Chidi Fam DO * Signed STUDY: MRI BRAIN WITHOUT CONTRAST REASON FOR EXAM: Female, 76 years old. Mental status change and slurred speech. TECHNIQUE: Standardized multiplanar fat and water weighted pulse sequences were obtained. COMPARISON: MRI of the brain dated February 13, 2016. FINDINGS: There is mild cerebral atrophy with widening of the extra- axial spaces and ventricular dilatation. There are a limited number of small white matter hyperintensities, distributed throughout the deep white matter tracts of the cerebral hemispheres, consistent with mild chronic white matter ischemic changes. There is confluent periventricular hyperintensity cloaking the lateral ventricles, consistent with periventricular leukoaraiosis. There appears be a tiny focus of restricted diffusion in the right cerebellum best seen on image #7. This could be the result of a tiny acute infarct. There is no other MR MR evidence to suggest acute infarct. Normal T2* images of the brain without demonstrated susceptibility artifact. There is no demonstrated hemosiderin stain. There are prominent perivascular spaces (PVS) involving the basal ganglia. Normal thalami. There is no extra-axial fluid accumulation. Normal flow voids within the major intracranial circulation suggesting patency by spin echo criteria. Normal sella turcica, pituitary gland, infundibular stalk, optic chiasm and hypothalamus. Normal tectal plate and pineal gland. Normal midbrain, palmira and medulla. Normal cerebellum. There are large basal cisterns. Normal bilateral temporal bones. Normal bilateral internal auditory canals. There are bilateral ocular lens implants with otherwise normal intraorbital contents. There is mucoperiosteal inflammatory disease of the paranasal sinuses consistent with mild chronic sinusitis. Normal calvarium and skull base. Normal visualized soft tissue structures. Normal visualized upper cervical spine. MRI/Brain without Contrast IMPRESSION: 1. Involutional changes of the brain, as described above. 2. Apparent tiny acute infarct in the right cerebellum. Electronically Signed: Idania Tang MD at 17:09 EST , Service support , CC: Rajat Coombs MD; Chidi Fam DO Cisco Network Architect: Signed BLOOD GASES BY CPS Collected: 02/19/2017 Status: F Source: [place] 3:56 AM [facility] REPOSITORY TYPE CODE TESTS RESULT OUT OF RANGE REFERENCE UNITS LAB L9000.9990 Normal BLD GAS TYPE ART LAB L9001.1000 Normal SITE R Radial LAB L9001.1010 Normal RAMEZ TEST POS LAB L9001.1050 O2 Normal Delivery Dev Nasal Can LAB L9001.1055 /min Normal LPM 2.0 LAB L9001.1104 Normal Results To ED LAB L9001.1110 7.35-7.45 pH Normal - I-STAT 7.40 LAB L9001.1210 35-45 mmHg High pCO2 - ISTAT 48.8 LAB L9001.1310 75-100 mmHG Normal PO2 I-STAT 87 LAB L9001.2300 22-26 mmol/L High HCO3 ISTAT 29.9 LAB L9001.2400 -2 to +2 mmol/L High BE ISTAT 5 LAB L9001.2415 mmol/L Normal TOTAL CO2 31 ISTAT LAB L9001.2425 95-99 % Normal SO2 ISTAT 96 Performed By: #### L9000.0800 #### [facility] Point of Care [address] [place] [address] EMERGENCY DEPARTMENT Observed: 02/19/2017 Status: F Source: [place] SUMMARY 3:30 AM [facility] REPOSITORY [facility] Medical Records Department [address] [place] [address] Emergency Department Summary 02/19/17 0017 MR#: [id number] Acct: [id number] Name: KATTY MIGUEL Rep #: [id number] : 1940 76 From: Maribell London PCP: Rajat Coombs MD Status: REG ER - ER Visit Summary Date of Service: 02/19/17 Chief Complaint: [Change in mental status] History of Present Illness: The patient is a 76 F [who presents the emergency department with change in mental status. She has not been acting herself since . She has been hallucinating and behaving bizarrely. She does have a history of mild dementia but functions well on her own typically. her daughter said she did not get out of bed at all. Today she was delusional and felt like there was a gas leak in her house called the fire department but it was normal then went to her neighbor's house and was behaving bizarrely. No fevers or chills no complaint of pain. Her daughter states this happened approximately a year ago secondary to a UTI. There is no falls or injury. She has a history of hypertension hyperlipidemia and dementia as well as [place] coronary artery disease and stents] Physical Examination: [] Blood pressure is 203/102 other vitals within normal limits pulse ox is 91% WN WD NAD PERRL EOMI MMM NECK supple and nontender, no masses RRR no murmur rub or gallop, no peripheral edema, symmetric radial pulses CTAB no respiratory distress ABDOMEN is soft and nontender, normal bowel sounds, no distension, no rebound or guarding SKIN is warm and dry no rashes Alert and Oriented x3, CN II-XII in tact, no motor or sensory deficits, gait normal diffusely weak NIH 0 No lymphadenopathy Test Results: [] Emergency Department Course and Treatment: [Daughter states that the last time she had a change in mental status this way she had a urinary tract infection. I did obtain a CT head which showed hypo-attenuated area in the anterior limb of the internal capsule. Urine was unremarkable chest x-ray was unremarkable. Troponin was elevated at 0.08 which is chronic for this patient in review of previous labs. EKG is sinus at 67 but there is a large amount of artifact. Patient does have a history of COPD I will order an ABG chest x-ray showed no acute changes. On reevaluation patient is clearly very really confused. It is slightly worse than previous. She continues to have a nonfocal neurologic exam. She does answer questions. This is a clear change per her daughter however. Patient will be admitted for further workup. Differential at this time is acute delirium, exacerbation of her dementia, stroke, occult infection.] Treatment Plan: [] Disposition: [Admit] Impression: [Acute change in mental status] This note was generated with [employer] dictation software. It may contain incorrect words, spelling, and punctuation that were not noted in review of the chart prior to signing ED Disposition - Plan for ED Patient: Chief Complaint: Alt LOC Referrals: Rajat Coombs MD [Primary Care Provider] - What to do if you have Problems For any increased pain, shortness of breath, bleeding, nausea or vomiting, chest pain, or any unexpected problems, contact your Primary Care Provider. Call [facility] ([phone]) or report to the closest Emergency Room. Call 911 if necessary. 02/19/17 2380 <Electronically signed by Maribell London > Date Maribell London Cosigner Signature (If Indicated): Date CC: Rajat Coombs MD URINALYSIS, COMPLETE Collected: 02/19/2017 Status: F Source: [place] 1:44 AM [facility] REPOSITORY Order Comment: Order Date: 02/19/17 How was Urine Obtained? CONCESSION WORKER TO SPECIFY TYPE CODE TESTS RESULT OUT OF RANGE REFERENCE UNITS LAB L400.3000 Yellow COLOR Normal Yellow LAB L400.3050 Clear Normal CLARITY Clear LAB L400.3200 Normal mg/dl Normal GLUCOSE, UR Normal LAB L400.3300 Negative mg/dL Normal BILIRUBIN URINE Negative LAB L400.3400 Negative mg/dl Normal KETONE UR Negative LAB L400.3465 1.002-1.030 Normal SP.GR. DIPSTX 1.010 LAB L400.3550 5.0 - 8.0 pH UR Normal 6.0 LAB L400.3600 Negative mg/dl PROT Normal DIPSTX Negative LAB L400.3700 Normal mg/dl Normal UROBILI Normal LAB L400.3750 Negative Normal NITRITE UR Negative LAB L400.3780 Negative /ul Normal OCCULT BLOOD-UR Negative LAB L400.3800 Negative /ul LEUK Normal ESTERASE Negative LAB L400.4050 0-5 /hpf WBC 0 Normal SEEN LAB L400.4100 0-5 /hpf 0 Normal RBC-UA SEEN LAB L400.4150 5-10 /hpf SQUAM 0 Normal EPI SEEN LAB L400.4300 None Seen /hpf 0 Normal BACTERIA SEEN LAB L400.4350 <or=2+ /hpf 0 Normal MUCUS, URINE SEEN Performed By: #### L400.0001 #### [facility] [address] [place], [address] CBC W/DIFF, AUTOMATED Collected: 02/19/2017 Status: F Source: [place] 12:22 AM [facility] REPOSITORY TYPE CODE TESTS RESULT OUT OF RANGE REFERENCE UNITS LAB L100.1000 4.4-11.0 K/mm3 Normal WBC 6.5 LAB L100.1200 4.2-5.4 M/mm3 Low RBC 3.88 LAB L100.1300 12.0-15.0 g/dl Normal HGB 12.4 LAB L100.1400 37-47 % Low HCT 36.6 LAB L100.1500 81-99 fL Normal MCV 94.3 LAB L100.1600 27.0-32.0 pg Normal MCH 32.0 LAB L100.1700 32-36 g/gl Normal MCHC 33.9 LAB L100.1810 11.6-14.6 % Normal RDW CV 12.2 LAB L100.1820 35.1-43.9 fl Normal RDW SD 40.9 LAB L100.1900 150-450 K/mm3 Low PLT 90 LAB L100.2000 6.2-12.0 fl Normal MPV 12.0 LAB L100.2100 47-70 % Normal NEUT% 54.3 LAB L100.2200 19-41 % Normal LY% 32.5 LAB L100.2300 0-10 % High MONO% 10.5 LAB L100.2400 0-5 % Normal EO% 2.0 LAB L100.2500 0-1 % Normal BASO% 0.5 LAB L100.2550 0.0-0.9 % Normal IM GRAN % 0.200 Result Comment: IG% - Immature Granulocytes (promyelocytes, myelocytes and metamyelocytes) > 1% indicates that a LEFT SHIFT is Present. LAB L100.2620 2.0-7.7 X10 3/uL Normal Absolute Neut 3.5 LAB L100.2720 0.83-4.51 X10 3/ul Normal Absolute Lymph 2.11 Performed By: #### L100.0100 #### [facility] [address] [place], [address] COMPREHENSIVE METABOLIC Collected: 02/19/2017 Status: F Source: [facility] 12:22 AM [facility] REPOSITORY Order Comment: 'TROP' Serial specimen #1, #2, #3, or #4: 1 TYPE CODE TESTS RESULT OUT OF RANGE REFERENCE UNITS LAB L501.0100 70-110 mg/dL Normal GLU 108 LAB L501.1000 7-18 mg/dL Normal BUN 8 LAB L501.1100 0.55-1.02 mg/dL Normal 0.91 CREAT,SERUM Result Comment: The validity of the calculated GFR AND GFRAA in patients over 70 years has not been determined. Clinical correlation is essential. LAB L501.1110 >60 mL/min Normal EST GFR 64 Result Comment: Non- GFR Calc LAB L501.1115 >60 mL/min Normal EST GFR - AA 77 Result Comment: GFR Calc LAB L501.1255 ml/min Normal Estimated CRCL 49.24 LAB L501.1300 10-20 RATIO Low BUN/CRE 8.8 LAB L501.1500 6.4-8. g/dL Normal 2 T PROT 7.3 LAB L501.1800 3.4-5. g/dL Normal 0 ALB 3.7 Result Comment: Please note revised Albumin AND Globulin reference range effective 2016. LAB L501.1950 2.2-4.2 g/dL Normal GLOB 3.6 LAB L501.2000 0.9-2.4 RATIO Normal A/G 1.0 LAB L501.2200 8.5-10.1 mg/dL Normal CA 8.9 LAB L501.4100 15-37 U/L High AST 57 Result Comment: Moderate Hemolysis, Result may be falsely increased. LAB L501.4305 45-117 U/L Normal ALK P 98 LAB L501.4405 12-78 U/L Normal ALT 25 LAB L501.4600 0.20-1.00 mg/dL Normal T BILI 0.50 LAB L501.5300 136-145 mmol/L Low NA 135 LAB L501.5600 3.5-5.1 mmol/L Normal K 4.7 Result Comment: Moderate Hemolysis, Result may be falsely increased. LAB L501.5900 98-107 mmol/L Normal CL 100 LAB L501.6100 21.0-32.0 mmol/L Normal CO2 29.0 LAB L501.6200 5-15 Normal 6 GAP Performed By: #### L500.4050, L501.4010 #### [facility] [address] [place], [place], [address] TROPONIN-I Collected: 02/19/2017 Status: F Source: [place] 12:22 AM [facility] REPOSITORY Order Comment: 'TROP' Serial specimen #1, #2, #3, or #4: 1 TYPE CODE TESTS RESULT OUT OF RANGE REFERENCE UNITS LAB L501.4010 <0.06 ng/mL High 0.08 TROPONIN-I Result Comment: TROPONIN-I EXPECTED VALUES <0.05 NEGATIVE 0.06 - 0.59 AT RISK OF [place] > OR = 0.60 SUGGEST [place] Performed By: #### L500.4050, L501.4010 #### [facility] [address] [place], [address] THYROID STIM HORMONE Collected: 02/19/2017 Status: F Source: [place] [place] (TSH) 12:22 AM [facility] REPOSITORY Order Comment: Comments: ok to add on TUBE C40 FROM ER LABS TYPE CODE TESTS RESULT OUT OF RANGE REFERENCE UNITS LAB L501.9520 0.358-3.74 uIU/mL Normal TSH 1.66 Performed By: #### L501.9520 #### [facility] [address] [facility] [facility] [place], [address] CHEST 1 VIEW Observed: 02/19/2017 Status: F Source: [place] (PORTABLE) 12:17 AM [facility] REPOSITORY [facility] Imaging Services [address] [place] [address] Chest 1 View (Portable) MR#: [id number] Acct: [id number] Name: KATTY MIGUEL Rep #: [id number] : 1940 F 76 From: Edilberto Scott MD PCP: Rajat Coombs MD Status: REG ER Study: Chest 1 View (Portable) Date of Exam: 02/19/17 Exam# [id number] Ordering Dr: Maribell London STUDY: X-RAY CHEST REASON FOR EXAM: Female, 76 years old. Altered level of consciousness TECHNIQUE: 1 view COMPARISON: None. FINDINGS: The heart is normal in size. The aorta is slightly tortuous. The lungs are clear. There are no pleural effusions. Normal visualized thoracic spine. Normal visualized ribs, clavicles, and shoulders. There is no demonstrated abnormality of the visualized soft tissue structures of the upper abdomen. RAD/Chest 1 View (Portable) IMPRESSION: Is slightly tortuous aorta. No acute findings in the lungs Electronically Signed: Edilberto Scott, at 1:37 EST Tel , Service support , CC: Maribell London; Rajat Coombs MD [employer] Network Architect: Signed BRAIN/HEAD WITHOUT Observed: 02/19/2017 Status: F Source: ITZEL CONTRAST 12:17 AM [facility] REPOSITORY [facility] Imaging Services [address] [place] [address] Brain/Head without Contrast MR#: [id number] Acct: [id number] Name: KATTY MIGUEL Rep #: [id number] : 1940 F 76 From: Edilberto Scott MD PCP: Rajat Coombs MD Status: REG ER Study: Brain/Head without Contrast Date of Exam: 02/19/17 Exam# [id number] Ordering Dr: Maribell London STUDY: CT BRAIN WITHOUT CONTRAST REASON FOR EXAM: Female, 76 years old. Confusion. Altered mental status. RADIATION DOSAGE (If Supplied By Facility): CTDIvol = ( 44.99 ) mGy, DLP = ( 796.11 ) mGycm TECHNIQUE: Transaxial CT imaging of the brain was performed without administration of intravenous contrast material. Individualized dose optimization techniques were used for this CT. COMPARISON: None. FINDINGS: There is a small 5.4 mm area of low attenuation in the anterior limb of the right internal capsule. It may represent a lacunar infarct. There is no indication of acute hemorrhage and no intra or extra-axial tumor mass. The ventricles, basal cisterns and cortical sulci are within normal limits. The calvarium is intact and there are no scalp swelling. The orbits, paranasal sinuses and mastoid air cells are normal. CT/Brain/Head without Contrast IMPRESSION: No acute hemorrhage and no intra or extra-axial tumor masses. A small area of low attenuation in the anterior limb of the right internal capsule. May represent a small lacunar infarct Electronically Signed: Edilberto Scott, at 1:51 EST Tel , Service support , CC: Maribell London; Rajat Coombs MD [employer] Network Architect: Signed ALLERGIES ALLERGIES DATE TYPE / CODE NAME / CODE REACTION SEVERITY SOURCE 12/14/2017 Drug NSAIDS Rash Unknown [place] [facility] Allergy/4160 (Non-Steroidal [facility](SNOMED Anti-Inflamma/ Repository CT) [id number](RXN ORM) 12/14/2017 Drug Penicillins/F0 Rash Unknown [place] [facility] Allergy/4160 66112597(RXNOR [facility](SNOMED M) Repository CT) 12/14/2017 Drug Sulfa Unknown Unknown [place] [facility] Allergy/4160 (Sulfonamide [facility](SNOMED Antibiotics)/F Repository CT) 501628415(RXNO RM) 12/14/2017 Drug codeine/R64665 Rash Unknown [place] [facility] Allergy/4160 1550(RXNORM) [facility](SNOMED Repository CT) 12/14/2017 Drug solifenacin/F0 Unknown Unknown [place] [facility] Allergy/4160 32858046(RXNOR [facility](SNOMED M) Repository CT) 05/19/2017 Drug aspirin/X22340 Rash Unknown [place] [facility] Allergy/4160 1587(RXNORM) [facility](SNOMED Repository CT) ENCOUNTERS ENCOUNTERS ADMIT/DISCHARGE ACCOUNT ADMITTING ENCOUNTER LOCATION SOURCE NUMBER CLASS 01/04/2018 [id number] Ambulatory [place] 8 [facility] ing:LIONA Repository S 12/31/2017 [id number] Ambulatory [place] 3 [facility] ing:JUSTINO.JEREMYLEA Repository S 12/24/2017 [id number] Ambulatory [place] 7 [facility] ing:OLSLOUISAA Repository R 12/17/2017 [id number] Ambulatory [place] 3 [facility] ing:OLS.WHLCA Repository R 12/14/2017/ [id number] Dionicio, Ambulatory [place] 8 0 [facility] ing:PCURoom: Repository CTB754Wby: 1 12/14/2017 [id number] Dionicio, Ambulatory BMSBuilding:B [place] 2 [facility] [place].[facility] Repository 12/14/2017 [id number] Ambulatory BMSBuilding:W [place] 7 [facility] Repository 07/20/2017/ [id number] Emergency [place] 8 8 [facility] ing:ED Repository 07/16/2017/ [id number] Emergency [place] 8 5 [facility] ing:ED Repository 05/19/2017/ [id number] Emergency [place] 8 9 [facility] ing:ED Repository 05/19/2017 [id number] Emergency [place] 7 [facility] ing:ED Repository 03/05/2017 [id number] Ambulatory BMSBuilding:B [place] [facility] 02/22/2017/ [id number] RodrigoMohit uribe Chi Inpatient [place] 1 Encounter [facility] ing:TCURoom: Repository QCA04Gpk: 1 02/19/2017/ [id number] Abdulaziz Anthony Inpatient [place] 8 8 Encounter [facility] ing:PCURoom: Repository ELU157Suc: 1 02/19/2017 [id number] Gabrielle, Abdulaziz Ambulatory BMSBuilding:B [place] 0 [place].[facility] Repository 02/19/2017 [id number] Gabrielle, Abdulaziz Ambulatory BMSBuilding:B [place] 9 [place].[facility] Repository 02/19/2017 [id number] Gabrielle, Abdulaziz Ambulatory BMSBuilding:B [place] 7 [place].[facility] Repository 02/19/2017 [id number] Gabrielle, Abdulaziz Ambulatory BMSBuilding:B [place] 7 [place].[facility] Repository 02/19/2017/ [id number] Ambulatory BMSBuilding:W [place] 8 8 [facility] Hospital Repository PAYERS PAYERS ENCOUNTER GUARANTOR PAYER SUBSCRIBER SOURCE 01/04/2018 Katty J Primary Insurance:SELF NOT GIVENUNK [place] [id number] [facility] Effective Hospital [address] [place] [address] Date:2018-01-04 Repository 01054Ted: (HP) 12/31/2017 KATTY J Primary Insurance:SELF NOT GIVENUNK [place] [id number] [facility] Effective Hospital [address] [place] [address], [place] Date:2017-12-31 Repository 26012Vaa: (HP) 12/24/2017 Katty J Primary Katty J [place] [id number] Insurance:HUMANA EvansDOB: [facility] [id number] Number: Repository [id number]: (068) [id number] [phone] (HP) Date:9540-48-13LU[address] [address]NS: 12/24/2017 Secondary Katty J [place] Insurance:MEDICARE EvansDOB: Community PART A BPolicy Number: [id number] [id number] Repository Date:2017-12-24 12/24/2017 Tertiary NOT GIVENUNK [place] Insurance:SELF PAY [facility] Hospital Number: Effective Repository Date:2017-12-24 12/17/2017 Katty J Primary Katty J [place] [id number] Insurance:HUMANA EvansDOB: [facility] [id number] Number: Repository [id number]: (453) [id number] [phone] (HP) Date:9879-93-44HY [address] [address]AO: 12/17/2017 Secondary Katty J [place] Insurance:MEDICARE EvansDOB: Community PART A BPolicy Number: [id number] Hospital [id number] Repository Date:2017-12-17 12/17/2017 Tertiary NOT GIVENUNK [place] Insurance:SELF PAY [facility] Number: Effective Repository Date:2017-12-17 12/14/2017 KATTY J Primary KATTY J [place] [id number] Insurance:MEDICARE EVANSDOB: Community [place] [address] PART A BPolicy Number: [id number] [id number] Repository [address]Uie: (330) Date:2017-12-14 [phone] () 12/14/2017 Secondary KATTY J [place] Insurance:HUMANA EVANSDOB: Community COMMERCIALPolicy [id number] Hospital Number: Repository [id number] Date:2338-45-77ND [address] [place] [address]TT: 12/14/2017 Tertiary NOT GIVENUNK [place] Insurance:SELF PAY [facility] Number: Effective Repository Date:2017-12-14 12/14/2017 Katty J Primary KATTY J [place] [id number] Insurance:MEDICARE EVANSDOB: Community [address] DrLot PART A BPolicy Number: [id number] [id number] Repository [address]Pcl: (299) Date:2017-12-14 [phone] () 12/14/2017 Secondary KATTY J [place] Insurance:HUMANA EVANSDOB: [facility] [id number] Hospital Number: Repository [id number] Date:8263-33-82ZB [address] [place] [address]LC: 12/14/2017 Tertiary NOT GIVENUNK [place] Insurance:SELF PAY [facility] Hospital Number: Effective Repository Date:2017-12-14 12/14/2017 KATTY J Primary KATTY J [place] [id number] Insurance:MEDICARE EVANSDOB: Community [place] [address] PART A BPolicy Number: [id number] [id number] Repository [address]Tku: (330) Date:2017-12-14 [phone] () 12/14/2017 Secondary KATTY J [place] Insurance:HUMANA EVANSDOB: Community COMMERCIALPolicy [id number] Hospital Number: Repository [id number] Date:0938-75-41FT [address] [place] [address]FZ: 12/14/2017 Tertiary NOT GIVENUNK [place] Insurance:SELF PAY [facility] Effective Repository Date:2017-12-14 07/20/2017 Katty J Primary KATTY J [place] [id number] Insurance:MEDICARE EVANSDOB: Community [place] DrLot PART A BPolicy Number: [id number] [id number] Repository [address]Baf: (807) Date:2017-07-20 [phone] () 07/20/2017 Secondary KATTY J [place] Insurance:HUMANA EVANSDOB: [facility] [id number] Hospital Number: Repository [id number] Date:8267-55-09VI[address] [address]UM: 07/20/2017 Tertiary NOT GIVENUNK [place] Insurance:SELF PAY [facility] Hospital Number: Effective Repository Date:2017-07-20 07/16/2017 Katty J Primary KATTY J [place] [id number] Insurance:MEDICARE EVANSDOB: Community [place] [address] PART A BPolicy Number: [id number] [id number] Repository [address]110[address]Lbk: (633) Date:2017-07-16 [phone] () 07/16/2017 Secondary KATTY J [place] Insurance:HUMANA EVANSDOB: [facility] COMM[facility]CIALSan [facility] Corporation[facility] [id number] Hospital Number: Repository [id number] Date:4103-29-93AO[address] [address]DL: 07/16/2017 Tertiary NOT GIVENUNK [place] Insurance:SELF PAY [facility] Hospital Number: Effective Repository Date:2017-07-16 05/19/2017 KATTY J Primary KATTY J [place] [id number] Insurance:MEDICARE EVANSDOB: Community TORRIE DRLOT PART A BPolicy Number: [id number] [id number] Repository [address]Xer: (751) Date:2017-05-19 [phone] (HP) 05/19/2017 Secondary KATTY J [place] Insurance:HUMANA EVANSDOB: [facility] [id number] Hospital Number: Repository [id number] Date:3778-41-41YX [address] [place] [address]FK: 05/19/2017 Tertiary NOT GIVENUNK [place] Insurance:SELF PAY [facility] Hospital Number: Effective Repository Date:2017-05-19 05/19/2017 KATTY J Primary Insurance:SELF NOT GIVENUNK [place] [id number] [facility] Number: Effective [address] Date:2017-05-19 Repository [address]Zzz: (HP) 03/05/2017 Katty J Primary Katty J [place] [id number] Insurance:MEDICARE EvansDOB[facility] PART A BPolicy Number: [id number] [id number] Repository [address]Nod: (325) Date:2017-02-22 [phone] (HP) 03/05/2017 Secondary Katty J [place] Insurance:HUMANA EvansDOB: [facility] [id number] Hospital Number: Repository [id number] Date:9351-77-88TO [address] [place] [address]JQ: 03/05/2017 Tertiary NOT GIVENUNK [place] Insurance:SELF PAY [facility] Hospital Number: Effective Repository Date:2017-02-22 02/22/2017 Katty J Primary Katty J [place] [id number] Insurance:MEDICARE EvansDOB: [facility] [address] [address]ot PART A BPolicy Number: [id number] [id number] Repository [address]Yem: 330) Date:2017-02-22 [phone] (HP) 02/22/2017 Secondary Katty J [place] Insurance:HUMANA EvansDOB: [facility] [id number] Hospital Number: Repository [id number] Date:5078-92-14GP [address] [place] [address]ZX: 02/22/2017 Tertiary NOT GIVENUNK [place] Insurance:SELF PAY [facility] Number: Effective Repository Date:2017-02-22 02/19/2017 Katty J Primary Katty J [place] [id number] Insurance:MEDICARE EvansDOB: Community [place] DrLot PART A BPolicy Number: [id number] [id number] Repository [address]Jbi: (371) Date:2017-02-18 [phone] () 02/19/2017 Secondary Katty J [place] Insurance:HUMANA EvansDOB: [facility] [id number] Hospital Number: Repository [id number] Date:9649-70-87NT[address] [address]UB: 02/19/2017 Tertiary NOT GIVENUNK [place] Insurance:SELF PAY [facility] Hospital Number: Effective Repository Date:2017-02-18 02/19/2017 Katty J Primary Katty J [place] [id number] Insurance:MEDICARE EvansDOB: Community [place] DrLot PART A BPolicy Number: [id number] [id number] Repository [address]Swh: (020) Date:2017-02-18 [phone] () 02/19/2017 Secondary Katty J [place] Insurance:HUMANA EvansDOB: [facility] [id number] Hospital Number: Repository [id number] Date:1248-73-26DL[address] [address]OP: 02/19/2017 Tertiary NOT GIVENUNK [place] Insurance:SELF PAY [facility] Hospital Number: Effective Repository Date:2017-02-19 02/19/2017 Katty J Primary Katty J [place] [id number] Insurance:MEDICARE EvansDOB: Community [place] DrLot PART A BPolicy Number: [id number] [id number] Repository [address]Zwd: (283) Date:2017-02-18 [phone] () 02/19/2017 Secondary Katty J [place] Insurance:HUMANA EvansDOB: [facility] COMMERCIALPolicy [id number] Hospital Number: Repository [id number] Date:7398-72-76TI[address] [address]YO: 02/19/2017 Tertiary NOT GIVENUNK [place] Insurance:SELF PAY [facility] Number: Effective Repository Date:2017-02-19 02/19/2017 Katty J Primary Katty J [place] [id number] Insurance:MEDICARE EvansDOB: [facility] DrLot PART A BPolicy Number: [id number] [id number] Repository [address]Cei: (773) Date:2017-02-18 [phone] () 02/19/2017 Secondary Katty J [place] Insurance:HUMANA EvansDOB: [facility] COMMERCIALPolicy [id number] Hospital Number: Repository [id number] Date:8326-16-45IR[address] [address]MO: 02/19/2017 Tertiary NOT GIVENUNK [place] Insurance:SELF PAY [facility] Number: Effective Repository Date:2017-02-19 02/19/2017 Katty J Primary Katty J [place] [id number] Insurance:MEDICARE [facility] BPolicy Number: [id number] [id number] Repository [address]Hfn: (435) Date:2017-02-18 [phone] () 02/19/2017 Secondary Katty J [place] Insurance:HUMANA EvansDOB: [facility] [id number] Hospital Number: Repository [id number] Date:1656-62-54TB[address] [address]ZO: 02/19/2017 Tertiary NOT GIVENUNK [place] Insurance:SELF PAY [facility] Number: Effective Repository Date:2017-02-19 02/19/2017 Katty J Primary Katty J [place] [id number] Insurance:MEDICARE EvansDOB: [facility] Torrie Michael PART A BPolicy Number: [id number] [id number] Repository [address]Vxl: 330) Date:2017-02-18 [phone] () 02/19/2017 Secondary Katty Robbins Insurance:HUMANA [facility] [id number] Hospital Number: Repository [id number] Date:0418-38-48VZ [address] [place] [address]GB: 02/19/2017 Tertiary NOT GIVENJUSTINA Robbins Insurance:SELF PAY [facility] Hospital Number: Effective Repository Date:2017-02-19
== END ==
LOC: OLS.WHLEAS 21:00
PROVIDERS: Visit Provider Family Medicine
DX: N39.0 Urinary tract infection, site not specified (principal)
CPT/HCPCS: 87077; 87086; 87088; 87186

== ENCOUNTER → 2018-03-28 06:45 | Outpatient (REF) | payer MEDICARE, OTHER, MEDICAID, SELFPAY ==
[2018-03-28 08:40] LABS: Anion Gap 9 (5-15); BUN 10 mg/dL (7-18); BUN/Creat Ratio 11.1 RATIO (10-20); Calcium,Total 8.6 mg/dL (8.5-10.1); Chloride 104 mmol/L (98-107); Cholesterol 169 mg/dL (200); EST Glomerular Filtration Rate 64 mL/min (>60); Est Glom Filt Rate - Afr Amer 78 mL/min (>60); Glucose 106 mg/dL (74-106); High Density Lipoprotein 85 mg/dL; Potassium 4.5 mmol/L (3.5-5.1); Sodium Level 139 mmol/L (136-145); Triglycerides 66 mg/dL; Very Low Density Lipoprotein 13 mg/dL (5-40)
[2018-03-28 14:07] LABS: Hematocrit 36.7 % (37-47); Hemoglobin 11.4 g/dl (12.0-15.0); Mean Corp Hgb Conc 31.1 g/gl (32-36); Mean Corpuscular Hgb 30.3 pg (27.0-32.0); Mean Corpuscular Volume 97.6 fL (81-99); Mean Platelet Vol. 10.7 fl (6.2-12.0); Platelet Count 205 K/mm3 (150-450); RBC Distribution Width CV 12.5 % (11.6-14.6); RBC Distribution Width SD 43.4 fl (35.1-43.9); Red Blood Count 3.76 M/mm3 (4.2-5.4); White Blood Count 7.8 K/mm3 (4.4-11.0)
[2018-03-28 14:10] LABS: Scan Indicated on CBC? Y/N NO
== END ==
LOC: OLS.WHLEAS 06:45
PROVIDERS: Visit Provider Family Medicine
DX: E11.9 Type 2 diabetes mellitus without complications (principal); I10 Essential (primary) hypertension; E78.5 Hyperlipidemia, unspecified; F41.9 Anxiety disorder, unspecified; G30.9 Alzheimer's disease, unspecified; F02.80 Dementia in other diseases classified elsewhere, unspecified severity, without behavioral disturbance, psychotic disturbance, mood disturbance, and anxiety
CPT/HCPCS: 36415; 80048; 80061; 85027

== ENCOUNTER → 2018-03-29 05:00 | Outpatient (REF) | payer MEDICARE, OTHER, SELFPAY ==
[2018-03-29 07:34] LABS: Anion Gap 7 (5-15); BUN 11 mg/dL (7-18); BUN/Creat Ratio 13.2 RATIO (10-20); Calcium,Total 8.3 mg/dL (8.5-10.1); Chloride 104 mmol/L (98-107); Creatinine, Serum 0.84 mg/dL (0.55-1.02); EST Glomerular Filtration Rate 70 mL/min (>60); Est Glom Filt Rate - Afr Amer 85 mL/min (>60); Glucose 90 mg/dL (74-106); Potassium 4.1 mmol/L (3.5-5.1); Sodium Level 138 mmol/L (136-145)
[2018-03-29 07:40] LABS: Hemoglobin 11.6 g/dl (12.0-15.0); Mean Corp Hgb Conc 31.4 g/gl (32-36); Mean Corpuscular Hgb 30.4 pg (27.0-32.0); Mean Corpuscular Volume 96.9 fL (81-99); Mean Platelet Vol. 10.2 fl (6.2-12.0); Platelet Count 223 K/mm3 (150-450); RBC Distribution Width CV 12.6 % (11.6-14.6); RBC Distribution Width SD 42.6 fl (35.1-43.9); Red Blood Count 3.82 M/mm3 (4.2-5.4); White Blood Count 8.2 K/mm3 (4.4-11.0)
[2018-03-29 07:45] LABS: Scan Indicated on CBC? Y/N NO
== END ==
LOC: OLS.WHLEAS 05:00
PROVIDERS: Visit Provider Family Medicine
DX: I10 Essential (primary) hypertension (principal); E11.9 Type 2 diabetes mellitus without complications; J44.9 Chronic obstructive pulmonary disease, unspecified
CPT/HCPCS: 36415; 80048; 85027

== ENCOUNTER → 2018-04-04 06:45 | Outpatient (REF) | payer MEDICARE, OTHER, MEDICAID, SELFPAY ==
[2018-04-04 08:27] LABS: Anion Gap 6 (5-15); BUN 15 mg/dL (7-18); BUN/Creat Ratio 14.3 RATIO (10-20); Calcium,Total 8.2 mg/dL (8.5-10.1); Chloride 102 mmol/L (98-107); Creatinine, Serum 1.05 mg/dL (0.55-1.02); EST Glomerular Filtration Rate 54 mL/min (>60); Est Glom Filt Rate - Afr Amer 65 mL/min (>60); Glucose 102 mg/dL (74-106); Potassium 3.7 mmol/L (3.5-5.1); Sodium Level 137 mmol/L (136-145)
== END ==
LOC: OLS.WHLEAS 06:45
PROVIDERS: Visit Provider Family Medicine
DX: R06.9 Unspecified abnormalities of breathing (principal)
CPT/HCPCS: 36415; 80048

== ENCOUNTER → 2018-04-29 13:53 | Outpatient (REF) | payer MEDICARE, OTHER, MEDICAID, SELFPAY ==
[2018-04-30 07:45] LABS: Color, Urine Yellow (Yellow); Glucose, Dipstick Normal (Normal); Ketone-Dipstick Negative (Negative); Leukocyte Esterase-Dipstick 25 /ul (Negative); Nitrite-Dipstick Negative (Negative); Occult Blood-Urine Negative /ul (Negative); Protein-Dipstick Negative (Negative); Urine Bilirubin Dipstick Negative (Negative); Urine Clarity Clear (Clear); Urine Urobilinogen Normal (Normal)
== END ==
LOC: OLS.WHLEAS 13:53
PROVIDERS: Visit Provider Family Medicine
DX: N39.0 Urinary tract infection, site not specified (principal)
CPT/HCPCS: 81002; 87086; 87088

== ENCOUNTER → 2018-09-11 05:00 | Outpatient (REF) | payer MEDICARE, OTHER, MEDICAID, SELFPAY ==
[2018-09-11 07:03] LABS: Hematocrit 39.6 % (37-47); Hemoglobin 12.7 g/dL (12.0-15.0); Mean Corp Hgb Conc 32.1 g/dL (32-36); Mean Corpuscular Hgb 29.6 pg (27.0-32.0); Mean Corpuscular Volume 92.3 fL (81-99); Mean Platelet Vol. 10.3 fl (6.2-12.0); Platelet Count 156 K/mm3 (150-450); RBC Distribution Width CV 12.3 % (11.6-14.6); RBC Distribution Width SD 41.5 fl (35.1-43.9); Red Blood Count 4.29 M/mm3 (4.2-5.4); White Blood Count 4.8 K/mm3 (4.4-11.0)
[2018-09-11 07:38] LABS: Anion Gap 5 (5-15); BUN 14 mg/dL (7-18); BUN/Creat Ratio 14.2 RATIO (10-20); Calcium,Total 8.5 mg/dL (8.5-10.1); Chloride 107 mmol/L (98-107); Cholesterol 179 mg/dL (200); Creatinine, Serum 0.98 mg/dL (0.55-1.02); EST Glomerular Filtration Rate 58 mL/min (>60); Est Glom Filt Rate - Afr Amer 70 mL/min (>60); Glucose 78 mg/dL (74-106); High Density Lipoprotein 67 mg/dL; Potassium 3.8 mmol/L (3.5-5.1); Sodium Level 143 mmol/L (136-145); Triglycerides 106 mg/dL; Very Low Density Lipoprotein 21 mg/dL (5-40)
[2018-09-11 08:03] LABS: Hemoglobin A1c 5.4 % (4.2-6.3)
== END ==
LOC: OLS.WHLEAS 05:00
PROVIDERS: Visit Provider Family Medicine
DX: G30.9 Alzheimer's disease, unspecified (principal); F02.81 Dementia in other diseases classified elsewhere, unspecified severity, with behavioral disturbance; F22 Delusional disorders; R41.841 Cognitive communication deficit; E11.9 Type 2 diabetes mellitus without complications
CPT/HCPCS: 36415; 80048; 80061; 83036; 85027

== ENCOUNTER → 2019-03-12 05:00 | Outpatient (REF) | payer MEDICARE, OTHER, MEDICAID, SELFPAY ==
[2019-03-12 08:11] LABS: Hematocrit 41.6 % (37-47); Hemoglobin 13.4 g/dL (12.0-15.0); Mean Corp Hgb Conc 32.2 g/dL (32-36); Mean Corpuscular Hgb 30.7 pg (27.0-32.0); Mean Corpuscular Volume 95.4 fL (81-99); Mean Platelet Vol. 10.8 fl (6.2-12.0); Platelet Count 224 K/mm3 (150-450); RBC Distribution Width CV 13.2 % (11.6-14.6); RBC Distribution Width SD 45.8 fl (35.1-43.9); Red Blood Count 4.36 M/mm3 (4.2-5.4); White Blood Count 5.1 K/mm3 (4.4-11.0)
[2019-03-12 08:34] LABS: Hemoglobin A1c 5.7 % (4.2-6.3)
[2019-03-12 08:35] LABS: Anion Gap 3 (5-15); BUN 12 mg/dL (7-18); BUN/Creat Ratio 12.7 RATIO (10-20); Calcium,Total 9.1 mg/dL (8.5-10.1); Chloride 107 mmol/L (98-107); Cholesterol 184 mg/dL (200); Creatinine, Serum 0.95 mg/dL (0.55-1.02); EST Glomerular Filtration Rate 61 mL/min (>60); Est Glom Filt Rate - Afr Amer 73 mL/min (>60); Glucose 91 mg/dL (74-106); High Density Lipoprotein 70 mg/dL; Potassium 3.8 mmol/L (3.5-5.1); Sodium Level 141 mmol/L (136-145); Triglycerides 109 mg/dL; Very Low Density Lipoprotein 22 mg/dL (5-40)
== END ==
LOC: OLS.WHLEAS 05:00
PROVIDERS: PCP Family Medicine; Visit Provider Family Medicine
DX: E11.9 Type 2 diabetes mellitus without complications (principal); G30.9 Alzheimer's disease, unspecified; F02.81 Dementia in other diseases classified elsewhere, unspecified severity, with behavioral disturbance; R44.0 Auditory hallucinations; R41.841 Cognitive communication deficit
CPT/HCPCS: 36415; 80048; 80061; 83036; 85027

== ENCOUNTER → 2019-09-10 05:00 | Outpatient (REF) | payer MEDICARE, OTHER, MEDICAID, SELFPAY ==
[2019-09-10 07:48] LABS: Hematocrit 38.9 % (37-47); Hemoglobin 12.3 g/dL (12.0-15.0); Mean Corp Hgb Conc 31.6 g/dL (32-36); Mean Corpuscular Hgb 30.5 pg (27.0-32.0); Mean Corpuscular Volume 96.5 fL (81-99); Mean Platelet Vol. 10.4 fl (6.2-12.0); Platelet Count 167 K/mm3 (150-450); RBC Distribution Width SD 42.8 fl (35.1-43.9); Red Blood Count 4.03 M/mm3 (4.2-5.4); White Blood Count 4.4 K/mm3 (4.4-11.0)
[2019-09-10 07:56] LABS: Anion Gap 3 (5-15); BUN 16 mg/dL (7-18); Calcium,Total 8.5 mg/dL (8.5-10.1); Chloride 109 mmol/L (98-107); Cholesterol 182 mg/dL (200); Creatinine, Serum 0.94 mg/dL (0.55-1.02); EST Glomerular Filtration Rate 61 mL/min (>60); Est Glom Filt Rate - Afr Amer 74 mL/min (>60); Glucose 82 mg/dL (74-106); High Density Lipoprotein 59 mg/dL; Potassium 3.6 mmol/L (3.5-5.1); Sodium Level 143 mmol/L (136-145); Triglycerides 113 mg/dL; Very Low Density Lipoprotein 23 mg/dL (5-40)
[2019-09-10 08:01] LABS: Hemoglobin A1c 5.3 % (3.8-5.6)
== END ==
LOC: OLS.WHLEAS 05:00
PROVIDERS: PCP Family Medicine; Referring Provider Family Medicine; Visit Provider Family Medicine
DX: G30.9 Alzheimer's disease, unspecified (principal); E11.9 Type 2 diabetes mellitus without complications; F02.81 Dementia in other diseases classified elsewhere, unspecified severity, with behavioral disturbance; F22 Delusional disorders; R41.841 Cognitive communication deficit; J44.9 Chronic obstructive pulmonary disease, unspecified
CPT/HCPCS: 36415; 80048; 80061; 83036; 85027

== ENCOUNTER → 2019-10-01 05:00 | Outpatient (REF) | payer MEDICARE, OTHER, MEDICAID, SELFPAY ==
[2019-10-01 07:25] LABS: Hematocrit 40.7 % (37-47); Hemoglobin 13.3 g/dL (12.0-15.0); Mean Corp Hgb Conc 32.7 g/dL (32-36); Mean Corpuscular Hgb 31.1 pg (27.0-32.0); Mean Corpuscular Volume 95.3 fL (81-99); Mean Platelet Vol. 13.6 fl (6.2-12.0); Platelet Count 116 K/mm3 (150-450); RBC Distribution Width CV 11.9 % (11.6-14.6); RBC Distribution Width SD 41.5 fl (35.1-43.9); Red Blood Count 4.27 M/mm3 (4.2-5.4); White Blood Count 5.4 K/mm3 (4.4-11.0)
[2019-10-01 07:56] LABS: Anion Gap 7 (5-15); BUN 11 mg/dL (7-18); BUN/Creat Ratio 12.4 RATIO (10-20); Calcium,Total 8.6 mg/dL (8.5-10.1); Chloride 108 mmol/L (98-107); Creatinine, Serum 0.89 mg/dL (0.55-1.02); EST Glomerular Filtration Rate 65 mL/min (>60); Est Glom Filt Rate - Afr Amer 79 mL/min (>60); Glucose 104 mg/dL (74-106); Sodium Level 141 mmol/L (136-145)
== END ==
LOC: OLS.WHLEAS 05:00
PROVIDERS: PCP Family Medicine; Visit Provider Family Medicine
DX: I25.10 Atherosclerotic heart disease of native coronary artery without angina pectoris (principal); G30.9 Alzheimer's disease, unspecified; F02.81 Dementia in other diseases classified elsewhere, unspecified severity, with behavioral disturbance; F22 Delusional disorders; R41.841 Cognitive communication deficit; J44.9 Chronic obstructive pulmonary disease, unspecified
CPT/HCPCS: 36415; 80048; 85027

== ENCOUNTER → 2019-10-02 | Outpatient (CLI) | payer MEDICARE, OTHER, MEDICAID, SELFPAY ==
--- NOTE | 2019-10-02 15:07 | CT_ITS ---
STUDY: CT BRAIN WITHOUT CONTRAST REASON FOR EXAM: Female, 79 years old. Mental status change, dysarthria, dementia. RADIATION DOSAGE (If Supplied By Facility): CTDIvol = ( 44.99 ) mGy, DLP = ( 796.11 ) mGycm TECHNIQUE: Transaxial CT imaging of the brain was performed without administration of intravenous contrast material. Individualized dose optimization techniques were used for this CT. COMPARISON: Prior head CT exam of 02/19/2017 and CTA brain of 02/20/2017. FINDINGS: Normal soft tissue structures. Normal calvarium. Normal size ventricles and extra-axial spaces for the patient''s age. There are areas of decreased attenuation within the white matter tracts of the supratentorial brain, consistent with microvascular disease changes. Normal basal ganglia and thalami. Normal brainstem.r Normal cerebellum. There is no intracranial hemorrhage. There are no findings of an acute ischemic infarction. Normal visualized paranasal sinuses. CT/Brain/Head without Contrast IMPRESSION: No acute intracranial findings. Negative for hemorrhage, hematoma or demarcation of a new nonhemorrhagic infarct zone. Stable involutional changes from prior exam. Electronically Signed: Dionna Harding MD at 16:08 EDT , Service support ,
== END | disposition home or self-care (01) ==
LOC: CT 14:59
PROVIDERS: PCP Family Medicine
DX: R41.82 Altered mental status, unspecified (principal); R47.1 Dysarthria and anarthria
CPT/HCPCS: 70450

== ENCOUNTER → 2019-11-11 05:00 | Outpatient (REF) | payer MEDICARE, OTHER, MEDICAID, SELFPAY ==
[2019-11-11 07:46] LABS: Hematocrit 40.1 % (37-47); Hemoglobin 12.5 g/dL (12.0-15.0); Mean Corp Hgb Conc 31.2 g/dL (32-36); Mean Corpuscular Hgb 30.7 pg (27.0-32.0); Mean Corpuscular Volume 98.5 fL (81-99); Platelet Count 177 K/mm3 (150-450); RBC Distribution Width CV 12.2 % (11.6-14.6); RBC Distribution Width SD 44.4 fl (35.1-43.9); Red Blood Count 4.07 M/mm3 (4.2-5.4); White Blood Count 7.2 K/mm3 (4.4-11.0)
[2019-11-11 08:19] LABS: ALB/GLOB Ratio 0.9 RATIO (0.9-2.4); AST(SGOT) 11 U/L (15-37); Alanine Aminotransfer ALT/SGPT 9 U/L (13-56); Alkaline Phosphatase 78 U/L (45-117); Anion Gap 3 (5-15); BUN 17 mg/dL (7-18); BUN/Creat Ratio 17.1 RATIO (10-20); Calcium,Total 8.7 mg/dL (8.5-10.1); Chloride 110 mmol/L (98-107); EST Glomerular Filtration Rate 57 mL/min (>60); Est Glom Filt Rate - Afr Amer 69 mL/min (>60); Globulin 3.3 g/dL (2.2-4.2); Glucose 85 mg/dL (74-106); Potassium 4.1 mmol/L (3.5-5.1); Protein, Total 6.3 g/dL (6.4-8.2); Sodium Level 142 mmol/L (136-145); Thyroid Stim Hormone (TSH) 1.99 uIU/mL (0.358-3.74)
== END ==
LOC: OLS.WHLEAS 05:00
PROVIDERS: PCP Family Medicine; Visit Provider Family Medicine
DX: I25.10 Atherosclerotic heart disease of native coronary artery without angina pectoris (principal); G30.9 Alzheimer's disease, unspecified; F02.81 Dementia in other diseases classified elsewhere, unspecified severity, with behavioral disturbance; F22 Delusional disorders; R41.841 Cognitive communication deficit; J44.9 Chronic obstructive pulmonary disease, unspecified
CPT/HCPCS: 36415; 80053; 84443; 85027

== ENCOUNTER → 2019-11-17 05:00 | Outpatient (REF) | payer MEDICARE, OTHER, MEDICAID, SELFPAY ==
[2019-11-17 09:39] LABS: ALB/GLOB Ratio 0.7 RATIO (0.9-2.4); AST(SGOT) 12 U/L (15-37); Alanine Aminotransfer ALT/SGPT 11 U/L (13-56); Alkaline Phosphatase 96 U/L (45-117); Anion Gap 5 (5-15); BUN 22 mg/dL (7-18); BUN/Creat Ratio 23.7 RATIO (10-20); Calcium,Total 8.8 mg/dL (8.5-10.1); Chloride 103 mmol/L (98-107); Creatinine, Serum 0.93 mg/dL (0.55-1.02); EST Glomerular Filtration Rate 62 mL/min (>60); Est Glom Filt Rate - Afr Amer 75 mL/min (>60); Globulin 4.5 g/dL (2.2-4.2); Glucose 86 mg/dL (74-106); Potassium 3.8 mmol/L (3.5-5.1); Protein, Total 7.5 g/dL (6.4-8.2); Sodium Level 138 mmol/L (136-145)
[2019-11-17 10:09] LABS: BNP,B-Type NATRIURETIC PEPTIDE 95.1 pg/mL (0-100)
== END ==
LOC: OLS.WHLEAS 05:00
PROVIDERS: PCP Family Medicine; Visit Provider Family Medicine
DX: J44.9 Chronic obstructive pulmonary disease, unspecified (principal); G30.9 Alzheimer's disease, unspecified; F02.81 Dementia in other diseases classified elsewhere, unspecified severity, with behavioral disturbance; F22 Delusional disorders; R41.841 Cognitive communication deficit; R06.9 Unspecified abnormalities of breathing
CPT/HCPCS: 36415; 80053; 83880